=== PATIENT | male | born 1940 | race Caucasian/White ===

== ENCOUNTER 2017-04-07 10:27 | Emergency (ER) | payer MEDICARE, BC ==
[2017-04-07 10:35] VITALS: BP 111/80
[2017-04-07] MEDS ORDERED: Sodium Chloride 0.9% 10 ML Syringe FLUSH PRN (10:51)
[2017-04-07] MEDS ORDERED: methylPREDNISolone Sodium Succinate 125 MG/2 ML SDV IVPUSH ONE (10:51)
--- NOTE | 2017-04-07 10:57 | EDM.PDOC ---
ED HPI GENERAL MEDICAL PROBLEM - General Chief Complaint: General Stated Complaint: [facility] Time Seen by Provider: 04/07/17 10:45 Source of Information: Reports: Patient, EMS History Limitations: Reports: No Limitations - History of Present Illness INITIAL COMMENTS - FREE TEXT/NARRATIVE: The patient presents with joint pain. He has known RA and he is on methotrexate. He is having a flair of his RA. He said this started a few days ago and it has gotten worse. All joints hurt except his shoulders. He denies fevers but he does have chills. He has no chest pain or shortness of breath. He did have some abdominal pain the past few days. He thought he was constipated and took something for it and he did go and he feels better. He has no nausea or vomiting but he has no appetite. Onset: Gradual Duration: Day(s): (3) Location: Reports: Other (Most joints except the shoulders) Quality: Reports: Sharp Severity: Severe Improves with: Reports: Immobilization Worsens with: Reports: Movement Associated Symptoms: Reports: Fever/Chills. Denies: Chest Pain, Cough, Nausea/ Vomiting, Shortness of Breath Generalized Pain Score (Numeric/FACES): 4 - Related Data Allergies Allergy/AdvReac Type Severity Reaction Status Date / Time No Known Allergies Allergy Verified 04/07/17 10:34 Home Meds: Home Meds Albuterol [Proventil HFA] 1 - 2 puff INH Q4H PRN 04/07/17 [History] Ascorbic Acid [Vitamin C] 250 mg PO DAILY 04/07/17 [History] Budesonide/Formoterol Fumarate [Symbicort 80-4.5 Mcg Inhaler] 1 dose INH BID [History] Bumetanide 1 tab PO BEDTIME 04/07/17 [History] Bumetanide 2 tab PO DAILY 04/07/17 [History] Fish Oil/[place]-3 Fatty Acids [Fish Oil 1,000 MG] 1,000 mg PO DAILY 04/07/17 [ History] Folic Acid 1 mg PO DAILY 04/07/17 [History] Lisinopril [Prinivil] 10 mg PO DAILY 04/07/17 [History] Methotrexate 10 mg PO WEEKLY 04/07/17 [History] Metolazone [Zaroxolyn] 205 mg PO DAILY 04/07/17 [History] Multivitamin [Multivitamins] 1 tab PO DAILY 04/07/17 [History] Potassium Chloride [Klor-Con M20] 1 tab PO DAILY 04/07/17 [History] Prednisone [IJD: predniSONE] 40 mg PO WITHBREAKFAST #10 tab 04/07/17 [Rx] Warfarin [Coumadin] 5 mg PO DAILY 04/07/17 [History] Past Medical History Respiratory History: Reports: Asthma Genitourinary History: Reports: Chronic Renal Insuffiency, Other (See Below) Other Genitourinary History: prostate cancer Musculoskeletal History: Reports: RA Oncologic (Cancer) History: Reports: Other (See Below) Other Oncologic History: LGL - Past Surgical History Musculoskeletal Surgical History: Reports: Hip Replacement Social & Family History - Tobacco Use Smoking Status *Q: Never Smoker - Caffeine Use Caffeine Use: Reports: Coffee - Recreational Drug Use Recreational Drug Use: No ED ROS GENERAL - Review of Systems Review Of Systems: See Below Constitutional: Reports: No Symptoms HEENT: Reports: No Symptoms Respiratory: Reports: No Symptoms Cardiovascular: Reports: No Symptoms Endocrine: Reports: No Symptoms GI/Abdominal: Reports: Abdominal Pain, Anorexia. Denies: Nausea, Vomiting : Reports: No Symptoms Musculoskeletal: Reports: Joint Pain ED EXAM, GENERAL - Physical Exam Exam: See Below Exam Limited By: No Limitations General Appearance: Alert, No Apparent Distress Ears: Normal External Exam Nose: Normal Inspection Head: Atraumatic, Normocephalic Neck: Normal Inspection Respiratory/Chest: No Respiratory Distress, Lungs Clear, Normal Breath Sounds Cardiovascular: Regular Rate, Rhythm, No Edema, No Murmur GI/Abdominal: Soft, Non-Tender, No Organomegaly, No Mass Extremities: Other (Pain upon palpation to his hands and other joints.) Course - Vital Signs Last Recorded V/S: Last Vital Signs Temp 98.6 F 04/07/17 10:29 Pulse 72 04/07/17 10:29 Resp 16 04/07/17 10:29 BP 111/80 04/07/17 10:29 Pulse Ox 100 04/07/17 10:29 - Orders/Labs/Meds Orders: Active Orders 24 hr Category Date Time Status Peripheral IV Care [RC] . DIRECTED Care 04/07/17 10:51 Active Abdomen Pelvis wo Cont [CT] Stat Exams 04/07/17 12:03 Taken Sodium Chloride 0.9% [Normal Saline] 1,000 ml Med 04/07/17 11:00 Active IV ASDIRECTED Sodium Chloride 0.9% [Saline Flush] Med 04/07/17 10:51 Active 10 ml FLUSH ASDIRECTED PRN Peripheral IV Insertion Adult [OM.PC] Stat Oth 04/07/17 10:51 Ordered Medication Orders Sodium Chloride (Normal Saline) 1,000 mls @ 125 mls/hr IV ASDIRECTED ROSALINDA Last Admin: 04/07/17 11:02 Dose: 125 mls/hr Sodium Chloride (Saline Flush) 10 ml FLUSH ASDIRECTED PRN PRN Reason: Keep Vein Open Last Admin: 04/07/17 11:04 Dose: 10 ml Labs: Laboratory Tests 04/07/17 04/07/17 04/07/17 Range/Units 11:00 11:00 11:00 WBC 7.71 (4.23-9.07) K/mm3 RBC 3.70 L (4.63-6.08) M/mm3 Hgb 12.7 L (13.7-17.5) gm/L Hct 37.0 L (40.1-51.0) % MCV 100.0 H (79.0-92.2) fl MCH 34.3 H (25.7-32.2) pg MCHC 34.3 (32.2-35.5) g/dl RDW Std Deviation 55.6 H (35.1-43.9) fL Plt Count 191 (163-337) K/mm3 MPV 10.2 (9.4-12.3) fl Neut % (Auto) 82.6 H (34.0-67.9) % Lymph % (Auto) 12.1 L (21.8-53.1) % [place] % (Auto) 5.1 L (5.3-12.2) % Eos % (Auto) 0 L (0.8-7.0) Baso % (Auto) 0.1 (0.1-1.2) % Neut # (Auto) 6.37 H (1.78-5.38) K/mm3 Lymph # (Auto) 0.93 L (1.32-3.57) K/mm3 [place] # (Auto) 0.39 (0.30-0.82) K/mm3 Eos # (Auto) 0.00 L (0.04-0.54) K/mm3 Baso # (Auto) 0.01 (0.01-0.08) K/mm3 PT 11.4 (8.0-13.0) SECONDS INR 1.04 Sodium 138 (136-145) mEq/L Potassium 3.3 L (3.5-5.1) mEq/L Chloride 99 (98-107) mEq/L Carbon Dioxide 22 (21-32) mEq/L Anion Gap 20.3 H (5-15) BUN 54 H (7-18) mg/dL Creatinine 2.7 H (0.7-1.3) mg/dL Est Cr Clr Drug Dosing 20.88 mL/min Estimated GFR (MDRD) 23 (>60) mL/min BUN/Creatinine Ratio 20.0 H (14-18) Glucose 95 (83-115) mg/dL Calcium 9.2 (8.5-10.1) mg/dL Total Bilirubin 1.4 H (0.2-1.0) mg/dL AST 22 (15-37) U/L ALT 30 (16-63) U/L Alkaline Phosphatase 55 (46-116) U/L Total Protein 8.0 (6.4-8.2) g/dl Albumin 3.4 (3.4-5.0) g/dl Globulin 4.6 gm/dL Albumin/Globulin Ratio 0.7 L (1-2) Meds: Medications Generic Name Dose Route Start Last Admin Trade Name Freq PRN Reason Stop Dose Admin Sodium Chloride 1,000 mls @ 125 mls/hr 04/07/17 11:00 04/07/17 11:02 Normal Saline IV 125 mls/hr ASDIRECTED ROSALINDA Administration Sodium Chloride 10 ml 04/07/17 10:51 04/07/17 11:04 Saline Flush FLUSH 10 ml ASDIRECTED PRN Administration Keep Vein Open Discontinued Medications Generic Name Dose Route Start Last Admin Trade Name Freq PRN Reason Stop Dose Admin Hydromorphone HCl 0.5 mg 04/07/17 12:03 04/07/17 12:11 Dilaudid IVPUSH 04/07/17 12:04 0.5 mg ONETIME ONE Administration Methylprednisolone Sodium Succinate 125 mg 04/07/17 10:51 04/07/17 11:03 Solu-Medrol IVPUSH 04/07/17 10:52 125 mg ONETIME ONE Administration - Re-Assessments/Exams Free Text/Narrative Re-Assessment/Exam: 04/07/17 10:59 I ordered an IV NS at 125mL/hr, labs and solu-medrol 125mg IV. 04/07/17 12:17 His CBC looks good. His K was a little low at 3.3. His BUN was elevated at 54. His creatinine was elevated to 2.7. That has never been this high. His doctor has been checking labs and his creatinine was elevated to 2.1 on February but back in November his creatinine was 1.6. He is a little better after the solu- medrol but not good enough to walk yet. I will give him dilaudid 0.5mg IV and he has more flank pain now I will get a CT of his abdomen and pelvis to look for a kidney stone. 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 The left ureter extends into the origin/ proximal portion of the inguinal canal. No hydroureteronephrosis. 9 X 5 mm nonobstructing right lower pole renal calculus. Right renal cortical lesions, recommend US correlation. Bilateral punctate renal parenchymal calcifications. Multiple subcentimeter calcified gallstones. No biliary dilatation. Colonic diverticulosis without diverticulitis. Splenomegaly with multiple indeterminate 1cm and smaller hypodense lesions. Consider triple phase abdominal CT or US correlation for further evaluation. I had my nurse get the patient up to walk and he did good he is feeling better. I will get him on some prednisone and have him follow up with his doctor for an US of his kidneys and spleen and recheck his creatinine. Departure - Departure Time of Disposition: 14:40 Disposition: Home, Self-Care 01 Condition: Good Clinical Impression: Renal insufficiency, Rheumatoid arthritis flare, Lesion of right [place] kidney Joint pain Qualifiers: Joint pain location: hand Laterality: bilateral Qualified Code(s): M25.541 - Pain in joints of right hand; M25.542 - Pain in joints of left hand - Discharge Information Prescriptions: Prednisone [IJD: predniSONE] 40 mg PO WITHBREAKFAST #10 tab Referrals: Jose Luis Bennett Jr, MD [Primary Care Provider] - 1 Week Forms: ED Department Discharge Additional Instructions: Take the prednisone daily for 5 days. Drink plenty of water. Keep taking your medications as prescribed. Follow up with your doctor to have your kidney function checked. Follow up with your doctor for lesions on your kidney. You will need an ultrasound done. Please return if you are worse. - My Orders Last 24 Hours: My Active Orders 04/07/17 10:51 Peripheral IV Care [RC] . DIRECTED Sodium Chloride 0.9% [Saline Flush] 10 ml FLUSH ASDIRECTED PRN Peripheral IV Insertion Adult [OM.PC] Stat 04/07/17 11:00 Sodium Chloride 0.9% [Normal Saline] 1,000 ml IV ASDIRECTED 04/07/17 12:03 Abdomen Pelvis wo Cont [CT] Stat - Assessment/Plan Last 24 Hours: My Active Orders 04/07/17 10:51 Peripheral IV Care [RC] . DIRECTED Sodium Chloride 0.9% [Saline Flush] 10 ml FLUSH ASDIRECTED PRN Peripheral IV Insertion Adult [OM.PC] Stat 04/07/17 11:00 Sodium Chloride 0.9% [Normal Saline] 1,000 ml IV ASDIRECTED 04/07/17 12:03 Abdomen Pelvis wo Cont [CT] Stat
[2017-04-07] MEDS ORDERED: Sodium Chloride 0.9% 1,000 ML IV SCH (11:00)
[2017-04-07] MEDS ORDERED: HYDROmorphone 0.5 MG/0.5 ML Syringe IVPUSH ONE (12:03)
--- NOTE | 2017-04-08 08:31 | CT ---
CT abdomen and pelvis Technique: Multiple axial sections were obtained from above the dome of the diaphragm inferiorly through the pubic symphysis. Intravenous and oral contrast has not been given. Study has been performed as a ureteral stone protocol. Findings: Nonobstructing calculus is noted within the lower right kidney measuring approximately 1 cm in size. Small cortical lesions are seen within both kidneys most likely representing minimal cysts. Cortical calcifications are seen within the right kidney. No ureteral dilatation is seen. No ureteral stone is identified. Left kidney is partially pelvic in location. Visualized lung bases show nothing acute. Heart is enlarged. Noncontrast appearance of the liver shows no focal abnormality. Length of the spleen is mildly increased at 15.4 cm. Pancreas is normal. Multiple small calcified gallstones are seen within the gallbladder. Aorta shows ectasia and atherosclerotic change without aneurysmal dilatation. Atherosclerotic change continues into the iliac vessels. No pelvic mass or adenopathy is seen. Radiation implant seeds are noted within the prostate gland. Fatty containing left inguinal hernia is noted. Appendix is seen which is normal. No bowel dilatation is seen. No acute inflammatory change or free fluid is seen. Bone window settings were reviewed which show a right hip prosthesis. Scattered degenerative change is seen throughout the spine. Incidental sigmoid diverticuli are seen. Impression: 1. No ureteral dilatation or ureteral stone is seen. 2. Slightly ectatic position of the left kidney appearing partially pelvic in location as a normal variant. Small cortical cysts are felt to be present within both kidneys. Small cortical calcifications within the right kidney as well as a nonobstructing 1 cm stone seen within the right kidney. 3. Multiple small calcified gallstones. 4. Mild splenomegaly which is nonspecific. 5. Other incidental findings as noted above. Diagnostic code #2 Agree with preliminary report issued by [employer] ([employer] preliminary report dictated on 04/07/2017 2:47 PM Central Time)
== END 2017-04-07 14:57 | disposition home or self-care (01) ==
LOC: JD.ED 10:27
DX: M25.541 Pain in joints of right hand (principal); M06.9 Rheumatoid arthritis, unspecified; J45.909 Unspecified asthma, uncomplicated; N18.9 Chronic kidney disease, unspecified; N28.9 Disorder of kidney and ureter, unspecified; Z96.649 Presence of unspecified artificial hip joint; Z79.899 Other long term (current) drug therapy
CPT/HCPCS: 36415; 74176; 80053; 85025; 85610; 96361; 96374; 96375; 99285; J1170; J2930; J7040; J7050; 99284

== ENCOUNTER 2017-10-08 13:29 | Emergency (ER) | payer MEDICARE, BC ==
[2017-10-08 13:40] VITALS: BP 149/83
[2017-10-08] MEDS ORDERED: Sodium Chloride 0.9% 10 ML Syringe FLUSH PRN (14:12)
--- NOTE | 2017-10-08 14:18 | EDM.PDOC ---
ED HPI GENERAL MEDICAL PROBLEM - General Chief Complaint: Upper Extremity Injury/Pain Stated Complaint: RIGHT ARM SWELLING Time Seen by Provider: 10/08/17 14:00 Source of Information: Reports: Patient History Limitations: Reports: No Limitations - History of Present Illness INITIAL COMMENTS - FREE TEXT/NARRATIVE: Patient is a 77-year-old male who presents ED complaining of right elbow pain and swelling to his right lower arm. Patient states the elbow tenderness and swelling started approximately 2 weeks ago. Over the past 2 view days the arm has grown more swollen. He did contact his PCP with instructions to come to the ED to rule out DVT. Patient states the pain is minimal. He has a history of rheumatoid arthritis and is on methotrexate. Patient does not recall any specific activity or trauma that precipitated the pain and swelling. There is no open wounds to his arm. He has no history of MRSA. In addition he has a history of A. fib and is on Coumadin. Patient does not recall his last INR. Patient is a history of hypertension, LGL, RH, heart failure, kidney disease, and prostate cancer. He is currently on Coreg, symbicort, albuterol, midline, Zaroxolyn, methotrexate , lisinopril, Coumadin, and potassium. Right Arm Pain Score (Numeric/FACES): 2 - Related Data Allergies Allergy/AdvReac Type Severity Reaction Status Date / Time No Known Allergies Allergy Verified 10/08/17 13:37 Home Meds: Home Meds Albuterol [Proventil HFA] 1 - 2 puff INH Q4H PRN 04/07/17 [History] Ascorbic Acid [Vitamin C] 250 mg PO DAILY 04/07/17 [History] Budesonide/Formoterol Fumarate [Symbicort 80-4.5 Mcg Inhaler] 1 dose INH BID [History] Bumetanide 1 tab PO BEDTIME 04/07/17 [History] Bumetanide 2 tab PO DAILY 04/07/17 [History] Fish Oil/[place]-3 Fatty Acids [Fish Oil 1,000 MG] 1,000 mg PO DAILY 04/07/17 [ History] Folic Acid 1 mg PO DAILY 04/07/17 [History] Lisinopril [Prinivil] 10 mg PO DAILY 04/07/17 [History] Methotrexate 10 mg PO WEEKLY 04/07/17 [History] Metolazone [Zaroxolyn] 2.5 mg PO DAILY 04/07/17 [History] Multivitamin [Multivitamins] 1 tab PO DAILY 04/07/17 [History] Potassium Chloride [Klor-Con M20] 1 tab PO DAILY 04/07/17 [History] Warfarin [Coumadin] 5 mg PO DAILY 04/07/17 [History] Carvedilol [Coreg] 3.125 mg PO BID 10/08/17 [History] Clindamycin HCl [Cleocin] 450 mg PO Q8H #90 cap 10/08/17 [Rx] Past Medical History Cardiovascular History: Reports: Afib, Hypertension Respiratory History: Reports: Asthma, Sleep Apnea, Other (See Below) Other Respiratory History: wears CPAP Genitourinary History: Reports: Chronic Renal Insuffiency, Other (See Below) Other Genitourinary History: prostate cancer Musculoskeletal History: Reports: RA Oncologic (Cancer) History: Reports: Other (See Below) Other Oncologic History: LGL - Past Surgical History Musculoskeletal Surgical History: Reports: Hip Replacement Social & Family History - Tobacco Use Smoking Status *Q: Former Smoker Used Tobacco, but Quit: No - Caffeine Use Caffeine Use: Reports: Coffee - Recreational Drug Use Recreational Drug Use: No Review of Systems - Review of Systems Review Of Systems: See Below Respiratory: Reports: No Symptoms Cardiovascular: Reports: No Symptoms Musculoskeletal: Reports: Joint Pain (Right elbow pain), Other (right arm swelling from the elbow down. ) Skin: Reports: Erythema (mild redness to the right elbow with swelling. ) Neurological: Denies: Numbness, Tingling ED EXAM, GENERAL - Physical Exam Exam: See Below Exam Limited By: No Limitations General Appearance: Alert, WD/WN, No Apparent Distress Ears: Hearing Grossly Normal Nose: Normal Inspection Throat/Mouth: Normal Voice, No Airway Compromise Neck: Normal Inspection, Supple Respiratory/Chest: No Respiratory Distress, Lungs Clear, Normal Breath Sounds, No Accessory Muscle Use Cardiovascular: Normal Peripheral Pulses, Regular Rate, Rhythm, Systolic Murmur (3/6) Peripheral Pulses: 3+: Radial (L), Radial (R) Extremities: Other (Right elbow swollen mildly red with increased warmth with palpation. ) Neurological: Alert, Oriented, CN II-XII Intact, Normal Cognition, No Motor/ Sensory Deficits Psychiatric: Normal Affect, Normal Mood Skin Exam: Warm, Dry, Intact, Normal Color Course - Vital Signs Last Recorded V/S: Last Vital Signs Temp 97.8 F 10/08/17 13:37 Pulse 84 10/08/17 13:37 Resp 18 10/08/17 13:37 BP 149/83 H 10/08/17 13:37 Pulse Ox 99 10/08/17 13:37 - Orders/Labs/Meds Orders: Active Orders 24 hr Category Date Time Status EKG Documentation Completion [RC] STAT Care 10/08/17 14:12 Active Peripheral IV Care [RC] . DIRECTED Care 10/08/17 14:13 Active Clindamycin Phosphate [Cleocin] 900 mg Med 10/08/17 16:56 Active Sodium Chloride 0.9% [Normal Saline] 100 ml IV ONETIME Sodium Chloride 0.9% [Saline Flush] Med 10/08/17 14:12 Active 10 ml FLUSH ASDIRECTED PRN Peripheral IV Insertion Adult [OM.PC] Stat Oth 10/08/17 14:12 Ordered Medication Orders Clindamycin Phosphate 900 mg/ (Sodium Chloride) 106 mls @ 100 mls/hr IV ONETIME ONE Stop: 10/08/17 17:59 Last Admin: 10/08/17 17:04 Dose: 100 mls/hr Sodium Chloride (Saline Flush) 10 ml FLUSH ASDIRECTED PRN PRN Reason: Keep Vein Open Last Admin: 10/08/17 14:29 Dose: 10 ml Labs: Laboratory Tests 10/08/17 10/08/17 10/08/17 Range/Units 14:29 14:29 14:29 WBC 4.87 (4.23-9.07) K/mm3 RBC 3.87 L (4.63-6.08) M/mm3 Hgb 12.4 L (13.7-17.5) gm/L Hct 37.6 L (40.1-51.0) % MCV 97.2 H (79.0-92.2) fl MCH 32.0 (25.7-32.2) pg MCHC 33.0 (32.2-35.5) g/dl RDW Std Deviation 48.8 H (35.1-43.9) fL Plt Count 171 (163-337) K/mm3 MPV 10.4 (9.4-12.3) fl Neut % (Auto) 68.0 H (34.0-67.9) % Lymph % (Auto) 19.9 L (21.8-53.1) % [place] % (Auto) 9.4 (5.3-12.2) % Eos % (Auto) 2.3 (0.8-7.0) Baso % (Auto) 0.4 (0.1-1.2) % Neut # (Auto) 3.31 (1.78-5.38) K/mm3 Lymph # (Auto) 0.97 L (1.32-3.57) K/mm3 [place] # (Auto) 0.46 (0.30-0.82) K/mm3 Eos # (Auto) 0.11 (0.04-0.54) K/mm3 Baso # (Auto) 0.02 (0.01-0.08) K/mm3 ESR (0-15) mm/hr PT 29.4 H (8.0-13.0) SECONDS INR 2.72 Sodium 141 (136-145) mEq/L Potassium 3.2 L (3.5-5.1) mEq/L Chloride 104 (98-107) mEq/L Carbon Dioxide 20 L (21-32) mEq/L Anion Gap 20.2 H (5-15) BUN 42 H (7-18) mg/dL Creatinine 1.9 H (0.7-1.3) mg/dL Est Cr Clr Drug Dosing 29.22 mL/min Estimated GFR (MDRD) 35 (>60) mL/min BUN/Creatinine Ratio 22.1 H (14-18) Glucose 121 H (83-115) mg/dL Calcium 8.8 (8.5-10.1) mg/dL Total Bilirubin 0.4 (0.2-1.0) mg/dL AST 17 (15-37) U/L ALT 26 (16-63) U/L Alkaline Phosphatase 63 (46-116) U/L C-Reactive Protein 6.3 H* (<1.0) mg/dL Total Protein 7.8 (6.4-8.2) g/dl Albumin 3.2 L (3.4-5.0) g/dl Globulin 4.6 gm/dL Albumin/Globulin Ratio 0.7 L (1-2) 10/08/17 Range/Units 14:29 WBC (4.23-9.07) K/mm3 RBC (4.63-6.08) M/mm3 Hgb (13.7-17.5) gm/L Hct (40.1-51.0) % MCV (79.0-92.2) fl MCH (25.7-32.2) pg MCHC (32.2-35.5) g/dl RDW Std Deviation (35.1-43.9) fL Plt Count (163-337) K/mm3 MPV (9.4-12.3) fl Neut % (Auto) (34.0-67.9) % Lymph % (Auto) (21.8-53.1) % [place] % (Auto) (5.3-12.2) % Eos % (Auto) (0.8-7.0) Baso % (Auto) (0.1-1.2) % Neut # (Auto) (1.78-5.38) K/mm3 Lymph # (Auto) (1.32-3.57) K/mm3 [place] # (Auto) (0.30-0.82) K/mm3 Eos # (Auto) (0.04-0.54) K/mm3 Baso # (Auto) (0.01-0.08) K/mm3 ESR 88 H (0-15) mm/hr PT (8.0-13.0) SECONDS INR Sodium (136-145) mEq/L Potassium (3.5-5.1) mEq/L Chloride (98-107) mEq/L Carbon Dioxide (21-32) mEq/L Anion Gap (5-15) BUN (7-18) mg/dL Creatinine (0.7-1.3) mg/dL Est Cr Clr Drug Dosing mL/min Estimated GFR (MDRD) (>60) mL/min BUN/Creatinine Ratio (14-18) Glucose (83-115) mg/dL Calcium (8.5-10.1) mg/dL Total Bilirubin (0.2-1.0) mg/dL AST (15-37) U/L ALT (16-63) U/L Alkaline Phosphatase (46-116) U/L C-Reactive Protein (<1.0) mg/dL Total Protein (6.4-8.2) g/dl Albumin (3.4-5.0) g/dl Globulin gm/dL Albumin/Globulin Ratio (1-2) Meds: Medications Generic Name Dose Route Start Last Admin Trade Name [place] PRN Reason Stop Dose Admin Clindamycin Phosphate 900 mg/ 106 mls @ 100 mls/hr 10/08/17 16:56 10/08/17 17 :04 Sodium Chloride IV 10/08/17 17:59 100 mls/hr ONETIME ONE Administration Sodium Chloride 10 ml 10/08/17 14:12 10/08/17 14:29 Saline Flush FLUSH 10 ml ASDIRECTED PRN Administration Keep Vein Open - Re-Assessments/Exams Free Text/Narrative Re-Assessment/Exam: IV established with initial blood work and studies BMP: CBC, chem 14, PTT/INR, CRP, ESR, EKG, and also vl duplex upper extremity right. EKG interpretation with a right bundle branch Block. No acute ST changes noted. 10/08/17 16:36 Labs reviewed: White blood cell count 4.87, hemoglobin 12.4, neutrophil percent is 68.0, INR is 2.72, potassium 3.2, creatinine 1.9, AG 20.2 , albumin 42, glucose 121, CRP 6.3, and ESR 88. Patient has rheumatoid arthritis thus contributing to elevated ESR and CRP. In addition he is on zaroxolyn and takes potassium chloride supplements. Patient CR is baseline. Results of ultrasound are pending. 10/08/17 16:52 Ultrasound right upper extremity impression: No evidence of venous thrombosis within the right upper extremity or within the left internal jugular vein. Mild subcutaneous edema within the right forearm. Patient has cellulitis to the right upper extremity. Ordered clindamycin 900mg IV. No drug interactions noted. Antibiotic completed. Discharge instructions as documented. Departure - Departure Time of Disposition: 17:41 Disposition: Home, Self-Care 01 Condition: Good Clinical Impression: Cellulitis of right upper extremity, Hypokalemia - Discharge Information Prescriptions: Clindamycin HCl [Cleocin] 450 mg PO Q8H #90 cap Instructions: Cellulitis, Adult, Cellulitis, Adult, [id number] Referrals: Jose Luis Bennett Jr, MD [Primary Care Provider] - Forms: ED Department Discharge Additional Instructions: As discussed yet cellulitis to the right arm. Treatment will be 450 mg three times a day for 10 days. Followup with PCP this coming week for reevaluation. Continue taking all your home medications as prescribed. Return to the E.D. if you develop any new or worsening symptoms. INR is 2.72. INR may increase with taking the clindamycin. Follow up with PCP to have INR rechecked this next week as well. - My Orders Last 24 Hours: My Active Orders 10/08/17 14:12 EKG Documentation Completion [RC] STAT Sodium Chloride 0.9% [Saline Flush] 10 ml FLUSH ASDIRECTED PRN Peripheral IV Insertion Adult [OM.PC] Stat 10/08/17 14:13 Peripheral IV Care [RC] . DIRECTED 10/08/17 16:56 Clindamycin Phosphate [Cleocin] 900 mg Sodium Chloride 0.9% [Normal Saline] 100 ml IV ONETIME - Assessment/Plan Last 24 Hours: My Active Orders 10/08/17 14:12 EKG Documentation Completion [RC] STAT Sodium Chloride 0.9% [Saline Flush] 10 ml FLUSH ASDIRECTED PRN Peripheral IV Insertion Adult [OM.PC] Stat 10/08/17 14:13 Peripheral IV Care [RC] . DIRECTED 10/08/17 16:56 Clindamycin Phosphate [Cleocin] 900 mg Sodium Chloride 0.9% [Normal Saline] 100 ml IV ONETIME
--- NOTE | 2017-10-08 16:22 | US ---
Right upper extremity venous ultrasound: Duplex and color flow imaging was obtained of the right internal jugular, subclavian, axillary, brachial, cephalic, basilic, radial and ulnar veins. Left internal jugular vein also evaluated. Findings: Mild subcutaneous edema is seen within the right forearm. Normal compression, augmentation and phasic flow is seen within the veins. Impression: 1. No evidence of venous thrombosis within the right upper extremity or within the left internal jugular vein. 2. Mild subcutaneous edema within the right forearm. Diagnostic code #2
[2017-10-08] MEDS ORDERED: Clindamycin Phosphate 900 MG in Sodium Chloride 0.9% 100 ML IV ONE (16:56)
== END 2017-10-08 18:10 | disposition home or self-care (01) ==
LOC: JD.ED 13:29
DX: L03.113 Cellulitis of right upper limb (principal); E87.6 Hypokalemia; I48.91 Unspecified atrial fibrillation; N18.9 Chronic kidney disease, unspecified; I12.9 Hypertensive chronic kidney disease with stage 1 through stage 4 chronic kidney disease, or unspecified chronic kidney disease; Z87.891 Personal history of nicotine dependence; Z79.899 Other long term (current) drug therapy; Z79.01 Long term (current) use of anticoagulants
CPT/HCPCS: 36415; 80053; 85025; 85610; 85652; 86140; 93005; 93931; 96365; 99284; J7030; J7050

== ENCOUNTER 2018-03-05 14:02 | Emergency (ER) | payer MEDICARE, BC ==
[2018-03-05] MEDS ORDERED: Sodium Chloride 0.9% 250 ML IV ONE (14:37)
[2018-03-05] MEDS: Sodium Chloride 0.9% 10 ML Syringe FLUSH PRN ×2 (14:39→14:43)
--- NOTE | 2018-03-05 15:46 | EDM.PDOC ---
ED HPI GENERAL MEDICAL PROBLEM - General Chief Complaint: Cardiovascular Problem Stated Complaint: LOW BLOOD PRESSURE Time Seen by Provider: 03/05/18 14:35 Source of Information: Reports: Patient History Limitations: Reports: No Limitations - History of Present Illness INITIAL COMMENTS - FREE TEXT/NARRATIVE: 77-year-old male present for evaluation and treatment of lightheadedness and hypotension. Patient reports he's been feeling lightheaded for the last 36 hours. Patient reports that he took his blood pressure at home, on a wrist sphygmomanometer, and his pressure reading was 80/52. At this time he is denying any chest pain, shortness breath, abdominal pain, fevers, cough, syncope , diarrhea or any bloody stools. Lightheadedness is worse with laying down. He denies any recent trauma such as motor vehicle accident or falls. Reports he had a colonoscopy several years ago and nothing abnormal was identified. Primary care provider is Dr. Bennett. Patient has a history of atrial fibrillation for which he is on Coumadin for. Duration: Hour(s): (36) Generalized Pain Score (Numeric/FACES): 3 - Related Data Allergies Allergy/AdvReac Type Severity Reaction Status Date / Time No Known Allergies Allergy Verified 03/05/18 14:12 Home Meds: Home Meds Ascorbic Acid [Vitamin C] 250 mg PO DAILY 04/07/17 [History] Bumetanide 1 tab PO ACDINNER 04/07/17 [History] Bumetanide 2 tab PO ACBREAKFAST 04/07/17 [History] Fish Oil/[place]-3 Fatty Acids [Fish Oil 1,000 MG] 1,000 mg PO DAILY 04/07/17 [ History] Folic Acid 1 mg PO DAILY 04/07/17 [History] Lisinopril [Prinivil] 10 mg PO DAILY 04/07/17 [History] Methotrexate 10 mg PO WEEKLY 04/07/17 [History] Metolazone [Zaroxolyn] 2.5 mg PO DAILY 04/07/17 [History] Multivitamin [Multivitamins] 1 tab PO DAILY 04/07/17 [History] Potassium Chloride [Klor-Con M20] 1 tab PO ASDIRECTED 04/07/17 [History] Warfarin [Coumadin] 5 mg PO DAILY 04/07/17 [History] Carvedilol [Coreg] 3.125 mg PO BID 10/08/17 [History] Cpap 1 dose IN ASDIRECTED 03/05/18 [History] Past Medical History HEENT History: Reports: Impaired Vision Cardiovascular History: Reports: Afib, Hypertension Respiratory History: Reports: Asthma, Sleep Apnea, Other (See Below) Other Respiratory History: wears CPAP Genitourinary History: Reports: Chronic Renal Insuffiency, Other (See Below) Other Genitourinary History: prostate cancer Musculoskeletal History: Reports: RA Endocrine/Metabolic History: Reports: Obesity/BMI 30+ Oncologic (Cancer) History: Reports: Prostate, Other (See Below) Other Oncologic History: LGL - Past Surgical History GI Surgical History: Reports: Hernia Repair/Other Musculoskeletal Surgical History: Reports: Hip Replacement Social & Family History - Family History Family Medical History: Noncontributory - Tobacco Use Smoking Status *Q: Former Smoker Used Tobacco, but Quit: Yes Month/Year Tobacco Last Used: 1983 - Caffeine Use Caffeine Use: Reports: Coffee Other Caffeine Use: Daily - Recreational Drug Use Recreational Drug Use: No ED ROS GENERAL - Review of Systems Review Of Systems: See Below Respiratory: Denies: Shortness of Breath Cardiovascular: Reports: Lightheadedness. Denies: Chest Pain, Syncope GI/Abdominal: Denies: Abdominal Pain, Bloody Stool, Diarrhea Neurological: Reports: Dizziness ED EXAM, GENERAL - Physical Exam Exam: See Below Exam Limited By: No Limitations General Appearance: Alert, WD/WN, No Apparent Distress Throat/Mouth: Normal Inspection, Normal Voice, No Airway Compromise Respiratory/Chest: No Respiratory Distress, Lungs Clear, Normal Breath Sounds Cardiovascular: Normal Peripheral Pulses, No Murmur, Irregularly Irregular GI/Abdominal: Soft, Non-Tender Rectal (Males) Exam: Normal Exam, Heme - Stool Neurological: Alert, Oriented, Normal Cognition Psychiatric: Normal Affect, Normal Mood Skin Exam: Warm, Dry, Normal Color EKG INTERPRETATION EKG Date: 03/05/18 Time: 15:40 Rhythm: A-Fib Rate (Beats/Min): 54 [place]: LAD-Left [place] Deviation P-Wave: Present QRS: RBBB (and LAFB) ST-T: Normal QT: Normal EKG Interpretation Comments: A.fib with a bradycardia ventricular response. Single PVC. No ischemic changes. + LAD. No LVH. RBBB and LAFB. Reviewed by myself and Dr. Darden. Course - Vital Signs Last Recorded V/S: Last Vital Signs Temp 97.6 F 03/05/18 14:08 Pulse 54 L 03/05/18 17:00 Resp 18 03/05/18 17:00 BP 112/83 03/05/18 17:00 Pulse Ox 99 03/05/18 17:00 Orthostatic Blood Pressure [ 129/94 Standing] Orthostatic Blood Pressure [ 110/71 Supine] - Orders/Labs/Meds Labs: Laboratory Tests 03/05/18 03/05/18 03/05/18 Range/Units 14:37 14:37 16:00 WBC 5.19 (4.23-9.07) K/mm3 RBC 3.65 L (4.63-6.08) M/mm3 Hgb 12.0 L (13.7-17.5) gm/L Hct 35.9 L (40.1-51.0) % MCV 98.4 H (79.0-92.2) fl MCH 32.9 H (25.7-32.2) pg MCHC 33.4 (32.2-35.5) g/dl RDW Std Deviation 48.4 H (35.1-43.9) fL Plt Count 148 L (163-337) K/mm3 MPV 10.2 (9.4-12.3) fl Neut % (Auto) 69.6 H (34.0-67.9) % Lymph % (Auto) 17.9 L (21.8-53.1) % [place] % (Auto) 10.0 (5.3-12.2) % Eos % (Auto) 2.1 (0.8-7.0) Baso % (Auto) 0.4 (0.1-1.2) % Neut # (Auto) 3.61 (1.78-5.38) K/mm3 Lymph # (Auto) 0.93 L (1.32-3.57) K/mm3 [place] # (Auto) 0.52 (0.30-0.82) K/mm3 Eos # (Auto) 0.11 (0.04-0.54) K/mm3 Baso # (Auto) 0.02 (0.01-0.08) K/mm3 Sodium 138 (136-145) mEq/L Potassium 3.6 (3.5-5.1) mEq/L Chloride 100 (98-107) mEq/L Carbon Dioxide 26 (21-32) mEq/L Anion Gap 15.6 H (5-15) BUN 51 H (7-18) mg/dL Creatinine 2.1 H (0.7-1.3) mg/dL Est Cr Clr Drug Dosing 26.44 mL/min Estimated GFR (MDRD) 31 (>60) mL/min BUN/Creatinine Ratio 24.3 H (14-18) Glucose 138 H (83-115) mg/dL Calcium 8.5 (8.5-10.1) mg/dL Total Bilirubin 0.6 (0.2-1.0) mg/dL AST 25 (15-37) U/L ALT 30 (16-63) U/L Alkaline Phosphatase 59 (46-116) U/L Total Protein 7.5 (6.4-8.2) g/dl Albumin 3.1 L (3.4-5.0) g/dl Globulin 4.4 gm/dL Albumin/Globulin Ratio 0.7 L (1-2) Urine Color Light yellow (Yellow) Urine Appearance Clear (Clear) Urine pH 6.0 (5.0-8.0) Ur Specific [place] 1.015 (1.005-1.030) Urine Protein Negative (Negative) Urine Glucose (UA) Negative (Negative) Urine Ketones Negative (Negative) Urine Occult Blood Negative (Negative) Urine Nitrite Negative (Negative) Urine Bilirubin Negative (Negative) Urine Urobilinogen 0.2 (0.2-1.0) Ur Leukocyte Esterase Negative (Negative) Urine RBC Not seen (0-5) /hpf Urine WBC Not seen (0-5) /hpf Ur Epithelial Cells 0-5 (0-5) /hpf Urine Bacteria Not seen (FEW) /hpf Urine Mucus Not seen (FEW) /hpf Meds: Medications Discontinued Medications Generic Name Dose Route Start Last Admin Trade Name Freq PRN Reason Stop Dose Admin Sodium Chloride 250 mls @ 999 mls/hr 03/05/18 14:37 03/05/18 14:43 Normal Saline IV 03/05/18 14:52 999 mls/hr ONETIME ONE Administration Sodium Chloride 10 ml 03/05/18 14:32 03/05/18 14:43 Saline Flush FLUSH 10 ml ASDIRECTED PRN Administration Keep Vein Open - Re-Assessments/Exams Free Text/Narrative Re-Assessment/Exam: 03/05/18 16:30 Patient on quality assurance monitor body. He did jerel down to 48 bpm while sleeping. Pressures have been good in the ED. Systolic has been 100-120. Attempted to contact Dr. Bennett, no longer available at this time. Case discussed with Dr. Darden. Recommended decreasing coreg dose to qday from bid. Recommended follow-up with PCP early next week. Patient may require a pacemaker. Discussed with the patient. He is already taking the coreg qday. Will have him continue at this dose, or if able 1/2 the dose. Encouraged close follow-up. Encouraged fluids. His bradycardia is likely what is making him feel so lightheaded. Patient states he has been told before he may require a pacemaker. Discharge instructions as documented. Departure - Departure Time of Disposition: 16:32 Disposition: Home, Self-Care 01 Condition: Fair Clinical Impression: Bradycardia, Hypotension Instructions: Hypotension, [id number], Bradycardia, Adult Referrals: Jose Luis Bennett Jr, MD [Primary Care Provider] - Forms: ED Department Discharge Additional Instructions: Rest. Make sure you are drinking plenty of fluids. Follow-up with your PCP next week. You may require a pacemaker for management of your bradycardia. Recommend discontinuing your pm dose of carvedilol (coreg). Recommend taking once a day until seen by Dr. Bennett. Please return to the ER if your symptoms change or worsen. ED HPI GENERAL MEDICAL PROBLEM - General Chief Complaint: Cardiovascular Problem Stated Complaint: LOW BLOOD PRESSURE Time Seen by Provider: 03/05/18 14:35 Source of Information: Reports: Patient History Limitations: Reports: No Limitations Generalized Pain Score (Numeric/FACES): 3 - Related Data Allergies Allergy/AdvReac Type Severity Reaction Status Date / Time No Known Allergies Allergy Verified 03/05/18 14:12 Home Meds: Home Meds Ascorbic Acid [Vitamin C] 250 mg PO DAILY 04/07/17 [History] Bumetanide 1 tab PO ACDINNER 04/07/17 [History] Bumetanide 2 tab PO ACBREAKFAST 04/07/17 [History] Fish Oil/[place]-3 Fatty Acids [Fish Oil 1,000 MG] 1,000 mg PO DAILY 04/07/17 [ History] Folic Acid 1 mg PO DAILY 04/07/17 [History] Lisinopril [Prinivil] 10 mg PO DAILY 04/07/17 [History] Methotrexate 10 mg PO WEEKLY 04/07/17 [History] Metolazone [Zaroxolyn] 2.5 mg PO DAILY 04/07/17 [History] Multivitamin [Multivitamins] 1 tab PO DAILY 04/07/17 [History] Potassium Chloride [Klor-Con M20] 1 tab PO ASDIRECTED 04/07/17 [History] Warfarin [Coumadin] 5 mg PO DAILY 04/07/17 [History] Carvedilol [Coreg] 3.125 mg PO BID 10/08/17 [History] Cpap 1 dose IN ASDIRECTED 03/05/18 [History] Past Medical History HEENT History: Reports: Impaired Vision Cardiovascular History: Reports: Afib, Hypertension Respiratory History: Reports: Asthma, Sleep Apnea, Other (See Below) Other Respiratory History: wears CPAP Genitourinary History: Reports: Chronic Renal Insuffiency, Other (See Below) Other Genitourinary History: prostate cancer Musculoskeletal History: Reports: RA Endocrine/Metabolic History: Reports: Obesity/BMI 30+ Oncologic (Cancer) History: Reports: Prostate, Other (See Below) Other Oncologic History: LGL - Past Surgical History GI Surgical History: Reports: Hernia Repair/Other Musculoskeletal Surgical History: Reports: Hip Replacement Social & Family History - Family History Family Medical History: Noncontributory - Tobacco Use Smoking Status *Q: Former Smoker Used Tobacco, but Quit: Yes Month/Year Tobacco Last Used: 1983 - Caffeine Use Caffeine Use: Reports: Coffee Other Caffeine Use: Daily - Recreational Drug Use Recreational Drug Use: No Course - Vital Signs Last Recorded V/S: Last Vital Signs Temp 97.6 F 03/05/18 14:08 Pulse 64 03/05/18 14:08 Resp 14 03/05/18 14:08 BP 117/86 03/05/18 14:08 Pulse Ox 98 03/05/18 14:08 Orthostatic Blood Pressure [ 129/94 Standing] Orthostatic Blood Pressure [ 110/71 Supine] - Orders/Labs/Meds Orders: Active Orders 24 hr Category Date Time Status EKG 12 Lead [EKG Documentation Completion] [] STAT Care 03/05/18 15:19 Active Hemoccult [Fecal Occult Blood Collection] [] Care 03/05/18 15:38 Active ASDIRECTED Orthostatic Vital Signs [RC] ASDIRECTED Care 03/05/18 14:32 Active Peripheral IV Care [RC] . DIRECTED Care 03/05/18 14:33 Active UA W/MICROSCOPIC [URIN] Stat Lab 03/05/18 16:00 Ordered Sodium Chloride 0.9% [Saline Flush] Med 03/05/18 14:32 Active 10 ml FLUSH ASDIRECTED PRN Peripheral IV Insertion Adult [OM.PC] Routine Oth 03/05/18 14:32 Ordered Medication Orders Sodium Chloride (Saline Flush) 10 ml FLUSH ASDIRECTED PRN PRN Reason: Keep Vein Open Last Admin: 03/05/18 14:43 Dose: 10 ml Admin: 03/05/18 14:39 Dose: 10 ml Labs: Laboratory Tests 03/05/18 03/05/18 03/05/18 Range/Units 14:37 14:37 16:00 WBC 5.19 (4.23-9.07) K/mm3 RBC 3.65 L (4.63-6.08) M/mm3 Hgb 12.0 L (13.7-17.5) gm/L Hct 35.9 L (40.1-51.0) % MCV 98.4 H (79.0-92.2) fl MCH 32.9 H (25.7-32.2) pg MCHC 33.4 (32.2-35.5) g/dl RDW Std Deviation 48.4 H (35.1-43.9) fL Plt Count 148 L (163-337) K/mm3 MPV 10.2 (9.4-12.3) fl Neut % (Auto) 69.6 H (34.0-67.9) % Lymph % (Auto) 17.9 L (21.8-53.1) % [place] % (Auto) 10.0 (5.3-12.2) % Eos % (Auto) 2.1 (0.8-7.0) Baso % (Auto) 0.4 (0.1-1.2) % Neut # (Auto) 3.61 (1.78-5.38) K/mm3 Lymph # (Auto) 0.93 L (1.32-3.57) K/mm3 [place] # (Auto) 0.52 (0.30-0.82) K/mm3 Eos # (Auto) 0.11 (0.04-0.54) K/mm3 Baso # (Auto) 0.02 (0.01-0.08) K/mm3 Sodium 138 (136-145) mEq/L Potassium 3.6 (3.5-5.1) mEq/L Chloride 100 (98-107) mEq/L Carbon Dioxide 26 (21-32) mEq/L Anion Gap 15.6 H (5-15) BUN 51 H (7-18) mg/dL Creatinine 2.1 H (0.7-1.3) mg/dL Est Cr Clr Drug Dosing 26.44 mL/min Estimated GFR (MDRD) 31 (>60) mL/min BUN/Creatinine Ratio 24.3 H (14-18) Glucose 138 H (83-115) mg/dL Calcium 8.5 (8.5-10.1) mg/dL Total Bilirubin 0.6 (0.2-1.0) mg/dL AST 25 (15-37) U/L ALT 30 (16-63) U/L Alkaline Phosphatase 59 (46-116) U/L Total Protein 7.5 (6.4-8.2) g/dl Albumin 3.1 L (3.4-5.0) g/dl Globulin 4.4 gm/dL Albumin/Globulin Ratio 0.7 L (1-2) Urine Color Light yellow (Yellow) Urine Appearance Clear (Clear) Urine pH 6.0 (5.0-8.0) Ur Specific [place] 1.015 (1.005-1.030) Urine Protein Negative (Negative) Urine Glucose (UA) Negative (Negative) Urine Ketones Negative (Negative) Urine Occult Blood Negative (Negative) Urine Nitrite Negative (Negative) Urine Bilirubin Negative (Negative) Urine Urobilinogen 0.2 (0.2-1.0) Ur Leukocyte Esterase Negative (Negative) Urine RBC Not seen (0-5) /hpf Urine WBC Not seen (0-5) /hpf Ur Epithelial Cells 0-5 (0-5) /hpf Urine Bacteria Not seen (FEW) /hpf Urine Mucus Not seen (FEW) /hpf Meds: Medications Generic Name Dose Route Start Last Admin Trade Name Freq PRN Reason Stop Dose Admin Sodium Chloride 10 ml 03/05/18 14:32 03/05/18 14:43 Saline Flush FLUSH 10 ml ASDIRECTED PRN Administration Keep Vein Open Discontinued Medications Generic Name Dose Route Start Last Admin Trade Name Freq PRN Reason Stop Dose Admin Sodium Chloride 250 mls @ 999 mls/hr 03/05/18 14:37 03/05/18 14:43 Normal Saline IV 03/05/18 14:52 999 mls/hr ONETIME ONE Administration Departure - Departure Time of Disposition: 16:32 Disposition: Home, Self-Care 01 Condition: Fair Clinical Impression: Bradycardia, Hypotension Referrals: Jose Luis Bennett Jr, MD [Primary Care Provider] - Forms: ED Department Discharge - My Orders Last 24 Hours: My Active Orders 03/05/18 14:32 Orthostatic Vital Signs [RC] ASDIRECTED Sodium Chloride 0.9% [Saline Flush] 10 ml FLUSH ASDIRECTED PRN Peripheral IV Insertion Adult [OM.PC] Routine 03/05/18 14:33 Peripheral IV Care [RC] . DIRECTED 03/05/18 15:19 EKG 12 Lead [EKG Documentation Completion] [RC] STAT 03/05/18 15:38 Hemoccult [Fecal Occult Blood Collection] [RC] ASDIRECTED 03/05/18 16:00 UA W/MICROSCOPIC [URIN] Stat - Assessment/Plan Last 24 Hours: My Active Orders 03/05/18 14:32 Orthostatic Vital Signs [RC] ASDIRECTED Sodium Chloride 0.9% [Saline Flush] 10 ml FLUSH ASDIRECTED PRN Peripheral IV Insertion Adult [OM.PC] Routine 03/05/18 14:33 Peripheral IV Care [RC] . DIRECTED 03/05/18 15:19 EKG 12 Lead [EKG Documentation Completion] [RC] STAT 03/05/18 15:38 Hemoccult [Fecal Occult Blood Collection] [RC] ASDIRECTED 03/05/18 16:00 UA W/MICROSCOPIC [URIN] Stat Rest. Make sure you are drinking plenty of fluids. Follow-up with your PCP next week. You may require a pacemaker for management of your bradycardia. Recommend discontinuing your PM dose of coreg, continue the morning dose. Monitor your BP and record it to take it to Dr. Bennett. Return to ER if symptoms change or worsen.
[2018-03-05 17:13] VITALS: BP 112/83
== END 2018-03-05 17:05 | disposition home or self-care (01) ==
LOC: JD.ED 14:02
DX: I95.9 Hypotension, unspecified (principal); R00.1 Bradycardia, unspecified; I48.91 Unspecified atrial fibrillation; I10 Essential (primary) hypertension; J45.909 Unspecified asthma, uncomplicated; G47.30 Sleep apnea, unspecified; Z99.89 Dependence on other enabling machines and devices; Z87.891 Personal history of nicotine dependence; Z79.899 Other long term (current) drug therapy; Z79.01 Long term (current) use of anticoagulants
CPT/HCPCS: 36415; 80053; 81001; 82270; 85025; 93005; 96360; 99284; J7040; J7050

== ENCOUNTER 2020-12-10 12:02 | Emergency (ER) | payer MEDICARE, BC ==
[2020-12-10 12:26] VITALS: BP 145/78; PULSE 78
[2020-12-10] MEDS ORDERED: methylPREDNISolone Sodium Succinate 125 MG/2 ML SDV IVPUSH ONE (12:38)
[2020-12-10] MEDS ORDERED: HYDROmorphone 0.5 MG/0.5 ML Syringe IVPUSH ONE (12:38)
--- NOTE | 2020-12-10 12:43 | EDM.PDOC ---
ED HPI GENERAL MEDICAL PROBLEM - General Chief Complaint: Back Pain or Injury Stated Complaint: [facility] Time Seen by Provider: 12/10/20 12:06 Source of Information: Reports: Patient, RN Notes Reviewed History Limitations: Reports: No Limitations - History of Present Illness INITIAL COMMENTS - FREE TEXT/NARRATIVE: Patient is a 80-year-old male presenting to the emergency department via [facility] with complaints of low back/bilateral buttock pain. Patient states this is a chronic pain for him related to arthritis. He states that the pain in his low back is minor, however the pain in his bilateral buttocks is quite severe. States that the right is worse than the left, however it is present bilaterally. He does have a diagnosis of RA. He is been on prednisone 20 mg daily, however they did wean him down to 10 mg daily. He did take 15 mg today to try to treat the discomfort. He states that when he gets flares like this, steroids generally help him. His primary care provider, Dr. Bennett, recently retired. He is scheduled to establish care with a new provider in 1 week. He denies any recent falls or injuries to the area. He ambulates at home with a walker. Takes Tylenol as needed for pain, however that is not helping. He is also on methotrexate for treatment of his RA. He denies any numbness or tingling in his legs. He has no bowel or bladder dysfunction. back Pain Score (Numeric/FACES): 4 - Related Data Allergies Allergy/AdvReac Type Severity Reaction Status Date / Time No Known Allergies Allergy Verified 12/10/20 12:26 Home Meds: Home Meds Ascorbic Acid [Vitamin C] 250 mg PO DAILY 04/07/17 [History] Bumetanide 1 tab PO ACDINNER 04/07/17 [History] Bumetanide 2 tab PO ACBREAKFAST 04/07/17 [History] Fish Oil/[place]-3 Fatty Acids [Fish Oil 1,000 MG] 1,000 mg PO DAILY 04/07/17 [History] Folic Acid 1 mg PO DAILY 04/07/17 [History] Lisinopril [Prinivil] 10 mg PO DAILY 04/07/17 [History] Methotrexate 10 mg PO WEEKLY 04/07/17 [History] Metolazone [Zaroxolyn] 2.5 mg PO DAILY 04/07/17 [History] Multivitamin [Multivitamins] 1 tab PO DAILY 04/07/17 [History] Potassium Chloride [Klor-Con M20] 1 tab PO ASDIRECTED 04/07/17 [History] Warfarin [Coumadin] 5 mg PO DAILY 04/07/17 [History] carvediloL [Coreg] 3.125 mg PO BID 10/08/17 [History] Cpap 1 dose IN ASDIRECTED 03/05/18 [History] Acetaminophen/HYDROcodone [[place] 325-5 MG] 1 tab PO Q4H PRN #10 tablet 12/10/20 [Rx] predniSONE [Prednisone] 20 mg PO ASDIRECTED #15 tablet 12/10/20 [Rx] Past Medical History HEENT History: Reports: Impaired Vision Cardiovascular History: Reports: Afib, Hypertension Respiratory History: Reports: Asthma, Sleep Apnea, Other (See Below) Other Respiratory History: wears CPAP Genitourinary History: Reports: Chronic Renal Insuffiency, Other (See Below) Other Genitourinary History: prostate cancer Musculoskeletal History: Reports: RA Endocrine/Metabolic History: Reports: Obesity/BMI 30+ Oncologic (Cancer) History: Reports: Prostate, Other (See Below) Other Oncologic History: LGL - Past Surgical History GI Surgical History: Reports: Hernia Repair/Other Musculoskeletal Surgical History: Reports: Hip Replacement Social & Family History - Family History Family Medical History: No Pertinent Family History - Tobacco Use Tobacco Use Status *Q: Former Tobacco User Used Tobacco, but Quit: Yes Month/Year Tobacco Last Used: 1979 - Caffeine Use Caffeine Use: Reports: Coffee, Tea Other Caffeine Use: Daily - Recreational Drug Use Recreational Drug Use: No ED ROS GENERAL - Review of Systems Review Of Systems: Comprehensive ROS is negative, except as noted in HPI. ED EXAM,LOWER BACK PAIN/INJURY - Physical Exam Exam: See Below Exam Limited By: No Limitations General Appearance: Alert, WD/WN, No Apparent Distress Respiratory/Chest: No Respiratory Distress, Lungs Clear, Normal Breath Sounds, No Accessory Muscle Use, Chest Non-Tender Cardiovascular: Normal Peripheral Pulses, Regular Rate, Rhythm, No Edema, No Gallop, No JVD, No Murmur, No Rub Back Exam: Normal Inspection, Other (Tenderness directly over the bilateral SI joints with the right being worse than the left). No: Paraspinal Tenderness, Vertebral Tenderness Neurological: Alert, Normal Mood/Affect, Normal Dorsiflexion, CN II-XII Intact, Normal Plantar Flexion, Normal Gait, No Motor/Sensory Deficits, Oriented x 3 Psychiatric: Normal Affect, Normal Mood Skin Exam: Warm, Dry, Intact, Normal Color, No Rash Course - Vital Signs Last Recorded V/S: Last Vital Signs Temp 96.8 F L 12/10/20 12:25 Pulse 78 12/10/20 12:25 Resp 20 12/10/20 12:25 BP 145/78 H 12/10/20 12:25 Pulse Ox 99 12/10/20 12:25 - Orders/Labs/Meds Labs: Laboratory Tests 12/10/20 12/10/20 Range/Units 12:08 12:08 WBC 6.80 (4.23-9.07) K/mm3 RBC 3.10 L (4.63-6.08) M/mm3 Hgb 10.8 L (13.7-17.5) gm/dl Hct 34.1 L (40.1-51.0) % MCV 110.0 H D (79.0-92.2) fl MCH 34.8 H (25.7-32.2) pg MCHC 31.7 L (32.2-35.5) g/dl RDW Std Deviation 62.6 H (35.1-43.9) fL Plt Count 202 (163-337) K/mm3 MPV 10.3 (9.4-12.3) fl Neut % (Auto) 85.9 H (34.0-67.9) % Lymph % (Auto) 10.7 L (21.8-53.1) % [place] % (Auto) 2.1 L (5.3-12.2) % Eos % (Auto) 1.0 (0.8-7.0) Baso % (Auto) 0.0 L (0.1-1.2) % Neut # (Auto) 5.84 H (1.78-5.38) K/mm3 Lymph # (Auto) 0.73 L (1.32-3.57) K/mm3 [place] # (Auto) 0.14 L (0.30-0.82) K/mm3 Eos # (Auto) 0.07 (0.04-0.54) K/mm3 Baso # (Auto) 0.00 L (0.01-0.08) K/mm3 Manual Slide Review Abnormal smear Sodium 140 (136-145) mEq/L Potassium 4.0 (3.5-5.1) mEq/L Chloride 102 (98-107) mEq/L Carbon Dioxide 27 (21-32) mEq/L Anion Gap 15.0 (5-15) BUN 39 H (7-18) mg/dL Creatinine 2.1 H (0.7-1.3) mg/dL Est Cr Clr Drug Dosing 27.10 mL/min Estimated GFR (MDRD) 31 (>60) mL/min BUN/Creatinine Ratio 18.6 H (14-18) Glucose 106 (83-115) mg/dL Calcium 8.6 (8.5-10.1) mg/dL Total Bilirubin 0.8 (0.2-1.0) mg/dL AST 21 (15-37) U/L ALT 28 (16-63) U/L Alkaline Phosphatase 42 L (46-116) U/L Total Protein 7.6 (6.4-8.2) g/dl Albumin 2.9 L (3.4-5.0) g/dl Globulin 4.7 gm/dL Albumin/Globulin Ratio 0.6 L (1-2) Meds: Medications Discontinued Medications Generic Name Dose Route Start Last Admin Trade Name Freq PRN Reason Stop Dose Admin Hydromorphone HCl 0.5 mg 12/10/20 12:38 12/10/20 12:48 Hydromorphone 0.5 Mg/0.5 Ml Syringe IVPUSH 12/10/20 12:39 0.5 mg ONETIME ONE Administration Methylprednisolone Sodium Succinate 125 mg 12/10/20 12:38 12/10/20 12:48 Methylprednisolone Sodium Succinate 125 Mg/2 Ml Sdv IVPUSH 12/10/20 12:39 125 mg ONETIME ONE Administration - Re-Assessments/Exams Free Text/Narrative Re-Assessment/Exam: Patient is a 80-year-old male presenting to the emergency department with complaints of buttocks and low back pain. On exam, he has significant tenderness over the right SI joint as well as tenderness over the left SI joint. The right is worse than the left. He has some mild low back pain but states that the pain in the buttocks is worse. He has a history of RA and states that he responds well to steroids. He has had no recent injuries. States this is a chronic pain for him. I have ordered Solu-Medrol 125 mg IV as well as Dilaudid 0.5 mg IV. 12/10/20 13:48 Hematology showed a hemoglobin slightly low at 10.8, BUN 39, creatinine 2.1. Patient was able to get up and walk after the medications given. States it is still slightly more painful than normal, however he feels that he is okay to go home. I will send him home with a prescription for [place] as needed for pain as well as a tapering dose of prednisone. He has an appointment to establish care with Rosanna Schrader in 1 week. He will discuss ongoing management from there. Discussed return precautions. Discharge instructions as documented. Departure - Departure Time of Disposition: 13:49 Disposition: Home, Self-Care 01 Condition: Good Clinical Impression: Rheumatoid arthritis flare, Chronic SI joint pain - Discharge Information *PRESCRIPTION DRUG MONITORING PROGRAM REVIEWED*: Yes *COPY OF PRESCRIPTION DRUG MONITORING REPORT IN PATIENT JOSEFA: No Prescriptions: Acetaminophen/HYDROcodone [[place] 325-5 MG] 1 tab PO Q4H PRN #10 tablet PRN Reason: Pain predniSONE [Prednisone] 20 mg PO ASDIRECTED #15 tablet Instructions: Arthritis, [id number], Chronic Back Pain, [id number] Referrals: Adrienne Schrader NP [Ordering Only Provider] - Forms: ED Department Discharge Additional Instructions: You were seen in the emergency department today for worsening of your low back and buttocks pain. Blood work was completed and found to be overall normal with the exception of her hemoglobin being slightly low at 10.8. While in the ER, you received IV steroids and pain medications which did improve your symptoms. You been put on a tapering dose of prednisone. Take this medication as prescribed starting tomorrow. You have also been provided a short course of pain medications. Recommend using these until the steroids take effect. Keep your appointment to establish care with Adrienne Schrader NP next week. If you should experience any new or worsening symptoms, please not hesitate to return to the emergency department for reevaluation. Sepsis Event Note (ED) - Evaluation Sepsis Screening Result: No Definite Risk - Focused Exam Vital Signs: Vital Signs Temp Pulse Resp BP Pulse Ox 12/10/20 12:25 96.8 F L 78 20 145/78 H 99
== END 2020-12-10 14:20 | disposition home or self-care (01) ==
LOC: JD.ED 12:02
DX: M06.9 Rheumatoid arthritis, unspecified (principal); M53.3 Sacrococcygeal disorders, not elsewhere classified; G89.29 Other chronic pain; I48.91 Unspecified atrial fibrillation; J45.909 Unspecified asthma, uncomplicated; I12.9 Hypertensive chronic kidney disease with stage 1 through stage 4 chronic kidney disease, or unspecified chronic kidney disease; N18.9 Chronic kidney disease, unspecified; E66.9 Obesity, unspecified; Z68.39 Body mass index [BMI] 39.0-39.9, adult; Z79.01 Long term (current) use of anticoagulants; Z79.899 Other long term (current) drug therapy; Z87.891 Personal history of nicotine dependence
CPT/HCPCS: 36415; 80053; 85025; 96374; 96375; 99283; J1170; J2930; 99284

== ENCOUNTER 2021-03-11 11:33 | Emergency (ER) | payer MEDICARE, BC ==
[2021-03-11 11:50] VITALS: PULSE 76
--- NOTE | 2021-03-11 14:02 | EDM.PDOC ---
ED HPI GENERAL MEDICAL PROBLEM - General Chief Complaint: Skin Complaint Stated Complaint: SORES ON BOTH LEGS Time Seen by Provider: 03/11/21 11:38 Source of Information: Reports: Patient, RN Notes Reviewed History Limitations: Reports: No Limitations - History of Present Illness INITIAL COMMENTS - FREE TEXT/NARRATIVE: Patient is a 80-year-old male presenting to the emergency department for evaluation of wound on his right lower extremity. He reports he has had this ulceration since December and he has been seeing surgeon, Dr. Salazar weekly. He was seen in the ER at [facility] in [place] on Thursday and told that he needs to see a behavioral intervention specialist to have this area debrided. Trying to schedule with a behavioral intervention specialist without success. They spoke to their primary care provider, Dr. Selby, who recommended they come to the emergency department. He is currently taking antibiotics of Bactrim and clindamycin. He is also on prednisone and methotrexate chronically for rheumatoid arthritis. Denies any fever, chills, nausea, vomiting, or diarrhea. Right Lower Leg Pain Score (Numeric/FACES): 4 - Related Data Allergies Allergy/AdvReac Type Severity Reaction Status Date / Time No Known Allergies Allergy Verified 03/11/21 11:49 Home Meds: Home Meds Ascorbic Acid [Vitamin C] 250 mg PO DAILY 04/07/17 [History] Bumetanide 1 tab PO BID 04/07/17 [History] Fish Oil/[place]-3 Fatty Acids [Fish Oil 1,000 MG] 1,000 mg PO DAILY 04/07/17 [History] Folic Acid 1 mg PO DAILY 04/07/17 [History] Methotrexate 7.5 mg PO WEEKLY 04/07/17 [History] Metolazone [Zaroxolyn] 2.5 mg PO DAILY PRN 04/07/17 [History] Multivitamin [Multivitamins] 1 tab PO DAILY 04/07/17 [History] Potassium Chloride [Klor-Con M20] 1 tab PO ASDIRECTED 04/07/17 [History] Warfarin [Coumadin] 5 mg PO SUTUWETHFRSA 04/07/17 [History] Albuterol Sulfate [Albuterol Sulfate HFA] 2 puff INH Q4H PRN 03/11/21 [History] Clindamycin HCl 150 mg PO QID 03/11/21 [History] Gabapentin [Neurontin] 100 mg PO BEDTIME 03/11/21 [History] Metoprolol Succinate 100 mg PO BID 03/11/21 [History] Sulfamethoxazole/Trimethoprim [Sulfamethoxazole-Tmp Ds Tablet] 1 each PO BID 03/11/21 [History] Warfarin [Coumadin] 2.5 mg PO MO 03/11/21 [History] calcitrioL [Calcitriol] 0.25 mcg PO MOFR 03/11/21 [History] predniSONE [Prednisone] 5 - 20 mg PO DAILY PRN 03/11/21 [History] predniSONE [Prednisone] 7.5 mg PO DAILY 03/11/21 [History] Past Medical History HEENT History: Reports: Impaired Vision Cardiovascular History: Reports: Afib, Hypertension Respiratory History: Reports: Asthma, Sleep Apnea, Other (See Below) Other Respiratory History: wears CPAP Genitourinary History: Reports: Chronic Renal Insuffiency, Other (See Below) Other Genitourinary History: prostate cancer Musculoskeletal History: Reports: RA Endocrine/Metabolic History: Reports: Obesity/BMI 30+ Oncologic (Cancer) History: Reports: Prostate, Other (See Below) Other Oncologic History: LGL - Past Surgical History GI Surgical History: Reports: Hernia Repair/Other Musculoskeletal Surgical History: Reports: Hip Replacement Social & Family History - Family History Family Medical History: No Pertinent Family History - Tobacco Use Tobacco Use Status *Q: Never Tobacco User - Caffeine Use Caffeine Use: Reports: Coffee, Tea Other Caffeine Use: Daily - Recreational Drug Use Recreational Drug Use: No ED ROS GENERAL - Review of Systems Review Of Systems: See Below Constitutional: Reports: No Symptoms. Denies: Fever, Chills HEENT: Reports: No Symptoms Respiratory: Reports: No Symptoms Cardiovascular: Reports: No Symptoms Endocrine: Reports: No Symptoms GI/Abdominal: Reports: No Symptoms. Denies: Nausea, Vomiting : Reports: No Symptoms Musculoskeletal: Reports: No Symptoms Skin: Reports: Lesions Neurological: Reports: No Symptoms Psychiatric: Reports: No Symptoms Hematologic/Lymphatic: Reports: No Symptoms Immunologic: Reports: No Symptoms ED EXAM, SKIN/RASH Exam: See Below General Appearance: Alert, WD/WN, No Apparent Distress Respiratory/Chest: No Respiratory Distress, Lungs Clear, Normal Breath Sounds, No Accessory Muscle Use, Chest Non-Tender Cardiovascular: Normal Peripheral Pulses, Regular Rate, Rhythm, No Gallop, No JVD, No Murmur, No Rub Extremities: Other (7cm x 5cm ulceration to right lateral blevins. Area is covered in a black escar. Surrounding skin shows stasis discoloration. 5 cm closed, purple area to left lateral lower extremity.) Neurological: Alert, Oriented, CN II-XII Intact, Normal Cognition, Normal Gait, Normal Reflexes, No Motor/Sensory Deficits Psychiatric: Normal Affect, Normal Mood Course - Vital Signs Last Recorded V/S: Last Vital Signs Temp 97.7 F 03/11/21 14:55 Pulse 76 03/11/21 14:55 Resp 18 03/11/21 14:55 BP 107/74 03/11/21 14:55 Pulse Ox 97 03/11/21 14:55 - Orders/Labs/Meds Labs: Laboratory Tests 03/11/21 03/11/21 Range/Units 12:09 12:09 WBC 8.97 (4.23-9.07) K/mm3 RBC 3.45 L (4.63-6.08) M/mm3 Hgb 12.0 L (13.7-17.5) gm/dl Hct 35.7 L (40.1-51.0) % MCV 103.5 H D (79.0-92.2) fl MCH 34.8 H (25.7-32.2) pg MCHC 33.6 (32.2-35.5) g/dl RDW Std Deviation 64.3 H (35.1-43.9) fL Plt Count 229 (163-337) K/mm3 MPV 9.7 (9.4-12.3) fl Neut % (Auto) 75.1 H (34.0-67.9) % Lymph % (Auto) 7.9 L (21.8-53.1) % [place] % (Auto) 13.7 H (5.3-12.2) % Eos % (Auto) 1.3 (0.8-7.0) Baso % (Auto) 0.3 (0.1-1.2) % Neut # (Auto) 6.73 H (1.78-5.38) K/mm3 Lymph # (Auto) 0.71 L (1.32-3.57) K/mm3 [place] # (Auto) 1.23 H (0.30-0.82) K/mm3 Eos # (Auto) 0.12 (0.04-0.54) K/mm3 Baso # (Auto) 0.03 (0.01-0.08) K/mm3 Manual Slide Review Abnormal smear Sodium 141 (136-145) mEq/L Potassium 3.5 (3.5-5.1) mEq/L Chloride 102 (98-107) mEq/L Carbon Dioxide 26 (21-32) mEq/L Anion Gap 16.5 H (5-15) BUN 48 H (7-18) mg/dL Creatinine 3.2 H (0.7-1.3) mg/dL Est Cr Clr Drug Dosing 17.17 mL/min Estimated GFR (MDRD) 19 (>60) mL/min BUN/Creatinine Ratio 15.0 (14-18) Glucose 100 H (70-99) mg/dL Calcium 8.9 (8.5-10.1) mg/dL Total Bilirubin 0.4 (0.2-1.0) mg/dL AST 19 (15-37) U/L ALT 27 (16-63) U/L Alkaline Phosphatase 47 (46-116) U/L Total Protein 7.0 (6.4-8.2) g/dl Albumin 3.1 L (3.4-5.0) g/dl Globulin 3.9 gm/dL Albumin/Globulin Ratio 0.8 L (1-2) - Re-Assessments/Exams Free Text/Narrative Re-Assessment/Exam: Patient is a 80-year-old male presenting to the emergency department with complaints of an open ulceration on his right lower extremity as well as beginnings of a ulceration left lower extremity which is currently closed. He was scheduled to see Dr. Salazar today but canceled his appointment because he was told he needs to see a behavioral intervention specialist. I have ordered blood work. We will make phone calls to see if wound care would be appropriate for this patient, however given the extent of ulceration, I feel continuing to see the surgeon is likely his best option 03/11/21 13:59 Hematology shows no evidence of infection. Patient does have chronic kidney disease as reflected in his labs. [facility] with [facility] was consulted by nursing staff in the verbalize that this is beyond the scope of their practice. I did speak with the general surgeon, Dr. Salazar. She recommend applying Xeroform gauze and covering with gauze and Coban. They will contact them and get them in to the clinic as soon as possible to discuss ongoing management. Patient will be discharged home. Discharge instructions as documented. Departure - Departure Time of Disposition: 14:00 Disposition: Home, Self-Care 01 Condition: Good Clinical Impression: Non-pressure chronic ulcer left lower leg, limited to breakdown skin - Discharge Information *PRESCRIPTION DRUG MONITORING PROGRAM REVIEWED*: No *COPY OF PRESCRIPTION DRUG MONITORING REPORT IN PATIENT JOSEFA: No Instructions: Pressure Injury Referrals: Adrienne Schrader NP [Primary Care Provider] - Martin-Yvette Rojo MD [Physician] - Forms: ED Department Discharge Additional Instructions: You were seen in the emergency department today for evaluation of a chronic ulcer to your right lower extremity. Blood work was completed and showed no evidence of systemic infection. Unfortunately, to the extent of your ulceration , a wound care nurse would not be appropriate. Dr. Salazar's office will be reaching out to you to get you in at her next available appointment. Recommend keeping the dressing in place that was applied today. Continue the antibiotics that you have been prescribed. Return to ER for any new or worsening symptoms. Sepsis Event Note (ED) - Evaluation Sepsis Screening Result: No Definite Risk
[2021-03-11 15:03] VITALS: BP 107/74
== END 2021-03-11 15:00 | disposition home or self-care (01) ==
LOC: JD.ED 11:33
DX: L97.921 Non-pressure chronic ulcer of unspecified part of left lower leg limited to breakdown of skin (principal); I48.91 Unspecified atrial fibrillation; I12.9 Hypertensive chronic kidney disease with stage 1 through stage 4 chronic kidney disease, or unspecified chronic kidney disease; N18.9 Chronic kidney disease, unspecified; J45.909 Unspecified asthma, uncomplicated; M06.9 Rheumatoid arthritis, unspecified; E66.9 Obesity, unspecified; Z68.39 Body mass index [BMI] 39.0-39.9, adult; Z79.899 Other long term (current) drug therapy
CPT/HCPCS: 36415; 80053; 85025; 99283

== ENCOUNTER 2021-03-15 14:52 | Emergency (ER) | payer MEDICARE, BC ==
[2021-03-15] MEDS ORDERED: Sodium Chloride 0.9% 10 ML Syringe FLUSH PRN (15:56)
[2021-03-15] MEDS ORDERED: HYDROmorphone 0.5 MG/0.5 ML Syringe IVPUSH ONE ×2 (15:57→18:15)
--- NOTE | 2021-03-15 16:54 | CT ---
CT lumbar spine Technique: Multiple axial sections were obtained from above the T9-10 disc inferiorly the L5-S1 disc. Reconstructed coronal and sagittal images were obtained. Comparison: No prior lumbar spine imaging is available. Findings: Upper abdominal aorta measures 3.6 cm in AP dimension. More distal abdominal aorta measures 2.5 cm in AP dimension. There is severe disc space narrowing noted at T9-10, T12-L1, L1-2, L2-3, L3-4, L4-5 and L5-S1. Vacuum disc phenomena is seen within several of the discs. Scattered endplate sclerosis is noted within multiple levels. Degenerative change is seen within the sacroiliac joints. Scattered degenerative change is noted within the apophyseal joints. There is no fracture being seen. No abnormal subluxation is seen. Impression: 1. Diffuse degenerative change as described above. No acute fracture or abnormal subluxation is seen. 2. Slightly aneurysmal abdominal aorta with measurements as noted above. Diagnostic code #3
[2021-03-15] MEDS ORDERED: cefTRIAXone 2 GM in Sodium Chloride 0.9% 100 ML IV ONE (18:15)
--- NOTE | 2021-03-15 18:27 | EDM.PDOC ---
ED HPI GENERAL MEDICAL PROBLEM - General Chief Complaint: Back Pain or Injury Stated Complaint: [facility] Time Seen by Provider: 03/15/21 15:27 Source of Information: Reports: Patient, Family, Old Records History Limitations: Reports: No Limitations - History of Present Illness INITIAL COMMENTS - FREE TEXT/NARRATIVE: The patient presents with family for left low back pain. He has been treated for venous stasis ulcers on both legs. The right has a large one measuring about 7cm X 5cm on the anterior leg. There is a smaller one to the posterior right leg. There is also a smaller one to the left lower posterior leg. This has been going on for about 6 to 8 weeks. He is on antibiotics. He has seen a surgeon in [email or web address] and it has not been helping and getting worse. He is scheduled to see another surgeon in a couple of days. He was at his provider yesterday and they were doing x-rays of both legs. He fell backward and hit his low back on the x-ray table. The pain has worsened through the night. He has pain in both legs and weakness with it. He has no fever, chills, cough, chest pain, shortness of breath, abdominal paredes, nausea or vomiting. Onset: Gradual Duration: Day(s): Location: Reports: Back Quality: Reports: Sharp Severity: Severe Improves with: Reports: Immobilization Worsens with: Reports: Movement Context: Reports: Trauma (Fell and hit the x-ray table) Associated Symptoms: Reports: No Other Symptoms Lower Back Pain Score (Numeric/FACES): 9 - Related Data Allergies Allergy/AdvReac Type Severity Reaction Status Date / Time No Known Allergies Allergy Verified 03/15/21 15:14 Home Meds: Home Meds Ascorbic Acid [Vitamin C] 250 mg PO DAILY 04/07/17 [History] Bumetanide 1 tab PO BID 04/07/17 [History] Fish Oil/[place]-3 Fatty Acids [Fish Oil 1,000 MG] 1,000 mg PO DAILY 04/07/17 [History] Folic Acid 1 mg PO DAILY 04/07/17 [History] Methotrexate 7.5 mg PO WEEKLY 04/07/17 [History] Metolazone [Zaroxolyn] 2.5 mg PO DAILY PRN 04/07/17 [History] Multivitamin [Multivitamins] 1 tab PO DAILY 04/07/17 [History] Potassium Chloride [Klor-Con M20] 1 tab PO ASDIRECTED 04/07/17 [History] Warfarin [Coumadin] 5 mg PO SUTUWETHFRSA 04/07/17 [History] Albuterol Sulfate [Albuterol Sulfate HFA] 2 puff INH Q4H PRN 03/11/21 [History] Clindamycin HCl 150 mg PO QID 03/11/21 [History] Gabapentin [Neurontin] 100 mg PO BEDTIME 03/11/21 [History] Metoprolol Succinate 100 mg PO BID 03/11/21 [History] Sulfamethoxazole/Trimethoprim [Sulfamethoxazole-Tmp Ds Tablet] 1 each PO BID 03/11/21 [History] Warfarin [Coumadin] 2.5 mg PO MO 03/11/21 [History] calcitrioL [Calcitriol] 0.25 mcg PO MOFR 03/11/21 [History] predniSONE [Prednisone] 5 - 20 mg PO DAILY PRN 03/11/21 [History] predniSONE [Prednisone] 7.5 mg PO DAILY 03/11/21 [History] Past Medical History HEENT History: Reports: Impaired Vision Cardiovascular History: Reports: Afib, Hypertension Respiratory History: Reports: Asthma, Sleep Apnea, Other (See Below) Other Respiratory History: wears CPAP Genitourinary History: Reports: Chronic Renal Insuffiency, Other (See Below) Other Genitourinary History: prostate cancer Musculoskeletal History: Reports: RA Endocrine/Metabolic History: Reports: Obesity/BMI 30+ Oncologic (Cancer) History: Reports: Prostate, Other (See Below) Other Oncologic History: LGL - Past Surgical History GI Surgical History: Reports: Hernia Repair/Other Musculoskeletal Surgical History: Reports: Hip Replacement Social & Family History - Family History Family Medical History: No Pertinent Family History - Tobacco Use Tobacco Use Status *Q: Never Tobacco User - Caffeine Use Caffeine Use: Reports: Soda Other Caffeine Use: Daily - Recreational Drug Use Recreational Drug Use: No ED ROS GENERAL - Review of Systems Review Of Systems: See Below Constitutional: Reports: No Symptoms HEENT: Reports: No Symptoms Respiratory: Reports: No Symptoms Cardiovascular: Reports: No Symptoms Endocrine: Reports: No Symptoms GI/Abdominal: Reports: No Symptoms : Reports: No Symptoms Musculoskeletal: Reports: Back Pain ED EXAM,LOWER BACK PAIN/INJURY - Physical Exam Exam: See Below Exam Limited By: No Limitations General Appearance: Alert, No Apparent Distress Ears: Normal External Exam Nose: Normal Inspection Head: Atraumatic, Normocephalic Neck: Normal Inspection Respiratory/Chest: No Respiratory Distress, Lungs Clear, Normal Breath Sounds Cardiovascular: Regular Rate, Rhythm, No Edema, No Murmur GI/Abdominal: Soft, Non-Tender, No Organomegaly, No Mass Back Exam: Other (Pain upon palpation to the left lower back) Extremities: Other (5 X 7cm venous stasis ulcer to the right anterior lower leg with a smaller one to the right posterior leg. Left lower leg venous stasus ulcer.) Neurological: Alert, No Motor/Sensory Deficits, Oriented x 3 Course - Vital Signs Last Recorded V/S: Last Vital Signs Temp 97.9 F 03/15/21 14:52 Pulse 100 03/15/21 14:52 Resp 18 03/15/21 14:52 BP 97/66 03/15/21 14:52 Pulse Ox 96 03/15/21 14:52 - Orders/Labs/Meds Orders: Active Orders 24 hr Category Date Time Status Peripheral IV Care [RC] . DIRECTED Care 03/15/21 15:56 Active BLOOD CULTURE [MREF] Stat Lab 03/15/21 18:49 Received BLOOD CULTURE [MREF] Stat Lab 03/15/21 18:59 Received CORONAVIRUS COVID-19 CHASTITY [MOLEC] Stat Lab 03/15/21 19:03 Ordered ESR [SEDIMENTATION RATE AUTO] [HEME] Stat Lab 03/15/21 16:18 Received LACTIC ACID [CHEM] Stat Lab 03/15/21 18:49 Received Sodium Chloride 0.9% [Saline Flush] Med 03/15/21 15:56 Active 10 ml FLUSH ASDIRECTED PRN Peripheral IV Insertion Adult [OM.PC] Stat Oth 03/15/21 15:56 Ordered Medication Orders Sodium Chloride (Sodium Chloride 0.9% 10 Ml Syringe) 10 ml FLUSH ASDIRECTED PRN PRN Reason: Keep Vein Open Last Admin: 03/15/21 16:42 Dose: 10 ml Documented by: JORDANA Labs: Laboratory Tests 03/15/21 03/15/21 03/15/21 Range/Units 16:18 16:18 16:18 WBC 10.95 H (4.23-9.07) K/mm3 RBC 3.49 L (4.63-6.08) M/mm3 Hgb 11.9 L (13.7-17.5) gm/dl Hct 36.8 L (40.1-51.0) % MCV 105.4 H (79.0-92.2) fl MCH 34.1 H (25.7-32.2) pg MCHC 32.3 (32.2-35.5) g/dl RDW Std Deviation 64.6 H (35.1-43.9) fL Plt Count 219 (163-337) K/mm3 MPV 9.7 (9.4-12.3) fl Neut % (Auto) 79.8 H (34.0-67.9) % Lymph % (Auto) 5.7 L (21.8-53.1) % [place]elope % (Auto) 13.4 H (5.3-12.2) % Eos % (Auto) 0 L (0.8-7.0) Baso % (Auto) 0.2 (0.1-1.2) % Neut # (Auto) 8.74 H (1.78-5.38) K/mm3 Lymph # (Auto) 0.62 L (1.32-3.57) K/mm3 [place] # (Auto) 1.47 H (0.30-0.82) K/mm3 Eos # (Auto) 0.00 L (0.04-0.54) K/mm3 Baso # (Auto) 0.02 (0.01-0.08) K/mm3 Manual Slide Review Abnormal smear PT 49.9 H (9.7-12.0) SECONDS INR 4.81 Sodium 141 (136-145) mEq/L Potassium 3.8 (3.5-5.1) mEq/L Chloride 101 (98-107) mEq/L Carbon Dioxide 27 (21-32) mEq/L Anion Gap 16.8 H (5-15) BUN 46 H (7-18) mg/dL Creatinine 3.4 H (0.7-1.3) mg/dL Est Cr Clr Drug Dosing 15.58 mL/min Estimated GFR (MDRD) 18 (>60) mL/min BUN/Creatinine Ratio 13.5 L (14-18) Glucose 132 H (70-99) mg/dL Calcium 9.1 (8.5-10.1) mg/dL Total Bilirubin 0.9 (0.2-1.0) mg/dL AST 20 (15-37) U/L ALT 23 (16-63) U/L Alkaline Phosphatase 51 (46-116) U/L Total Protein 7.4 (6.4-8.2) g/dl Albumin 2.7 L (3.4-5.0) g/dl Globulin 4.7 gm/dL Albumin/Globulin Ratio 0.6 L (1-2) Urine Color (Yellow) Urine Appearance (Clear) Urine pH (5.0-8.0) Ur Specific [place] (1.005-1.030) Urine Protein (Negative) Urine Glucose (UA) (Negative) Urine Ketones (Negative) Urine Occult Blood (Negative) Urine Nitrite (Negative) Urine Bilirubin (Negative) Urine Urobilinogen (0.2-1.0) Ur Leukocyte Esterase (Negative) U Hyaline Cast (Auto) (0-5) /lpf Urine RBC (0-5) /hpf Urine WBC (0-5) /hpf Ur Epithelial Cells (0-5) /hpf Urine Bacteria (FEW) /hpf Urine Mucus (FEW) /hpf Urine Yeast (NOT SEEN) 03/15/21 Range/Units 18:30 WBC (4.23-9.07) K/mm3 RBC (4.63-6.08) M/mm3 Hgb (13.7-17.5) gm/dl Hct (40.1-51.0) % MCV (79.0-92.2) fl MCH (25.7-32.2) pg MCHC (32.2-35.5) g/dl RDW Std Deviation (35.1-43.9) fL Plt Count (163-337) K/mm3 MPV (9.4-12.3) fl Neut % (Auto) (34.0-67.9) % Lymph % (Auto) (21.8-53.1) % [place]elope % (Auto) (5.3-12.2) % Eos % (Auto) (0.8-7.0) Baso % (Auto) (0.1-1.2) % Neut # (Auto) (1.78-5.38) K/mm3 Lymph # (Auto) (1.32-3.57) K/mm3 [place] # (Auto) (0.30-0.82) K/mm3 Eos # (Auto) (0.04-0.54) K/mm3 Baso # (Auto) (0.01-0.08) K/mm3 Manual Slide Review PT (9.7-12.0) SECONDS INR Sodium (136-145) mEq/L Potassium (3.5-5.1) mEq/L Chloride (98-107) mEq/L Carbon Dioxide (21-32) mEq/L Anion Gap (5-15) BUN (7-18) mg/dL Creatinine (0.7-1.3) mg/dL Est Cr Clr Drug Dosing mL/min Estimated GFR (MDRD) (>60) mL/min BUN/Creatinine Ratio (14-18) Glucose (70-99) mg/dL Calcium (8.5-10.1) mg/dL Total Bilirubin (0.2-1.0) mg/dL AST (15-37) U/L ALT (16-63) U/L Alkaline Phosphatase (46-116) U/L Total Protein (6.4-8.2) g/dl Albumin (3.4-5.0) g/dl Globulin gm/dL Albumin/Globulin Ratio (1-2) Urine Color Yellow (Yellow) Urine Appearance Clear (Clear) Urine pH 6.0 (5.0-8.0) Ur Specific [place] 1.020 (1.005-1.030) Urine Protein 2+ H (Negative) Urine Glucose (UA) Negative (Negative) Urine Ketones Negative (Negative) Urine Occult Blood 2+ H (Negative) Urine Nitrite Negative (Negative) Urine Bilirubin Negative (Negative) Urine Urobilinogen 0.2 (0.2-1.0) Ur Leukocyte Esterase Negative (Negative) U Hyaline Cast (Auto) 5-10 H (0-5) /lpf Urine RBC 5-10 H (0-5) /hpf Urine WBC 0-5 (0-5) /hpf Ur Epithelial Cells Not seen (0-5) /hpf Urine Bacteria Few (FEW) /hpf Urine Mucus Rare (FEW) /hpf Urine Yeast Rare (NOT SEEN) Meds: Medications Generic Name Dose Route Start Last Admin Trade Name Freq PRN Reason Stop Dose Admin Sodium Chloride 10 ml 03/15/21 15:56 03/15/21 16:42 Sodium Chloride 0.9% 10 Ml Syringe FLUSH 10 ml ASDIRECTED PRN Administration Keep Vein Open Discontinued Medications Generic Name Dose Route Start Last Admin Trade Name Vanq PRN Reason Stop Dose Admin Hydromorphone HCl 0.5 mg 03/15/21 15:57 03/15/21 16:42 Hydromorphone 0.5 Mg/0.5 Ml Syringe IVPUSH 03/15/21 15:58 0.5 mg ONETIME ONE Administration Hydromorphone HCl 0.5 mg 03/15/21 18:15 Hydromorphone 0.5 Mg/0.5 Ml Syringe IVPUSH 03/15/21 18:16 ONETIME ONE Ceftriaxone Sodium 2 gm/ 100 mls @ 200 mls/hr 03/15/21 18:15 Sodium Chloride IV 03/15/21 18:44 ONETIME ONE - Re-Assessments/Exams Free Text/Narrative Re-Assessment/Exam: 03/15/21 19:11 I ordered an IV saline lock, CT of his back, labs and dilaudid 0.5mg IV. 03/15/21 19:12 His WBC was elevated at 10.95. His Hgb was low at 11.9. His INR was elevated at 4.81. It was 10.2 yesterday. His anion gap was elevated at 16.8. His creatinine was elevated at 3.4. His GFR was low at 18. His glucose was elevated at 132. His UA shows no UTI. The CT of his lumbar spine shows diffuse degenerative change. No acute fracture or abnormal subluxation is seen. Slightly aneurysmal abdominal aorta at 3.6cm. I ordered lactic acid, blood cultures and rocephin 2 grams IV. I feel he needs to be admitted. They have worked with the surgeon here and may need a higher lever of care. I called [facility] in [place] and talked with Dr Castro and he agreed to the transfer. Departure - Departure Time of Disposition: 19:25 Disposition: DC/Tfer to Acute Hospital 02 Condition: Fair Clinical Impression: Venous stasis ulcers of both lower extremities, Renal insufficiency, AAA (abdominal aortic aneurysm) without rupture - Discharge Information Referrals: Adrienne Schrader NP [Primary Care Provider] - Forms: ED Department Discharge Sepsis Event Note (ED) - Evaluation Sepsis Screening Result: No Definite Risk - Focused Exam Vital Signs: Vital Signs Temp Pulse Resp BP Pulse Ox 03/15/21 14:52 97.9 F 100 18 97/66 96 - My Orders Last 24 Hours: My Active Orders 03/15/21 15:56 Peripheral IV Care [RC] . DIRECTED Sodium Chloride 0.9% [Saline Flush] 10 ml FLUSH ASDIRECTED PRN Peripheral IV Insertion Adult [OM.PC] Stat 03/15/21 16:18 ESR [SEDIMENTATION RATE AUTO] [HEME] Stat 03/15/21 18:49 BLOOD CULTURE [MREF] Stat LACTIC ACID [CHEM] Stat 03/15/21 18:59 BLOOD CULTURE [MREF] Stat 03/15/21 19:03 CORONAVIRUS COVID-19 CHASTITY [MOLEC] Stat - Assessment/Plan Last 24 Hours: My Active Orders 03/15/21 15:56 Peripheral IV Care [RC] . DIRECTED Sodium Chloride 0.9% [Saline Flush] 10 ml FLUSH ASDIRECTED PRN Peripheral IV Insertion Adult [OM.PC] Stat 03/15/21 16:18 ESR [SEDIMENTATION RATE AUTO] [HEME] Stat 03/15/21 18:49 BLOOD CULTURE [MREF] Stat LACTIC ACID [CHEM] Stat 03/15/21 18:59 BLOOD CULTURE [MREF] Stat 03/15/21 19:03 CORONAVIRUS COVID-19 CHASTITY [MOLEC] Stat
[2021-03-15 22:50] VITALS: BP 131/104; PULSE 104
== END 2021-03-15 20:45 ==
LOC: JD.ED 14:52
DX: I71.4 Abdominal aortic aneurysm, without rupture (principal); I83.018 Varicose veins of right lower extremity with ulcer other part of lower leg; I83.028 Varicose veins of left lower extremity with ulcer other part of lower leg; L97.819 Non-pressure chronic ulcer of other part of right lower leg with unspecified severity; I48.91 Unspecified atrial fibrillation; I12.9 Hypertensive chronic kidney disease with stage 1 through stage 4 chronic kidney disease, or unspecified chronic kidney disease; N18.9 Chronic kidney disease, unspecified; E66.9 Obesity, unspecified; Z79.01 Long term (current) use of anticoagulants; Z79.899 Other long term (current) drug therapy; Z20.822 Contact with and (suspected) exposure to COVID-19; Z68.39 Body mass index [BMI] 39.0-39.9, adult
CPT/HCPCS: 36415; 72131; 80053; 81001; 83605; 85025; 85610; 85652; 87040; 96365; 96375; 96376; 99285; J0696; J1170; U0002; 99284

== ENCOUNTER 2021-06-28 15:50 | Emergency (ER) | payer MEDICARE, BC ==
[2021-06-28 16:11] VITALS: BP 127/76; PULSE 89
[2021-06-28] MEDS ORDERED: Sodium Chloride 0.9% 10 ML Syringe FLUSH PRN (16:38)
[2021-06-28] MEDS ORDERED: Sodium Chloride 0.9% 1,000 ML IV SCH (16:45)
[2021-06-28] MEDS ORDERED: HYDROmorphone 0.5 MG/0.5 ML Syringe IVPUSH ONE ×2 (18:09→19:39)
[2021-06-28] MEDS ORDERED: cefTRIAXone 2 GM in Sodium Chloride 0.9% 100 ML IV ONE (18:40)
--- NOTE | 2021-06-28 19:17 | EDM.PDOC ---
ED HPI GENERAL MEDICAL PROBLEM - General Chief Complaint: Skin Complaint Stated Complaint: [facility] Time Seen by Provider: 06/28/21 15:58 Source of Information: Reports: Patient History Limitations: Reports: No Limitations - History of Present Illness INITIAL COMMENTS - FREE TEXT/NARRATIVE: The patient presents by [facility] for lower leg wounds that are bleeding. The patient has been dealing with lower leg wounds for a few months. He was in the hospital at [place] and saw multiple specialists. 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 He is currently seeing Dr Oliveros. He put dressings on Thursday and used some aquaseel. Both legs have had areas that have been bleeding. He has no fever, chills, cough, chest pain, shortness of breath, abdominal pain, nausea or vomiting. He does have pain to both legs. Onset: Gradual Duration: Week(s): Quality: Reports: Sharp Severity: Mild Improves with: Reports: None Worsens with: Reports: None Associated Symptoms: Reports: No Other Symptoms Bilateral Leg Pain Score (Numeric/FACES): 5 - Related Data Allergies Allergy/AdvReac Type Severity Reaction Status Date / Time No Known Allergies Allergy Verified 06/28/21 16:11 Home Meds: Home Meds Albuterol Sulfate [Albuterol Sulfate HFA] 2 puff INH QID 03/11/21 [History] calcitrioL [Calcitriol] 0.25 mcg PO MOFR 03/11/21 [History] Apixaban [Eliquis] 5 mg PO BID 06/28/21 [History] Bumetanide 1 mg PO BID 06/28/21 [History] Bumetanide 2 mg PO BID 06/28/21 [History] Doxycycline [Vibra-Tabs] 100 mg PO Q12HR #20 tab 06/28/21 [Rx] Ferrous Sulfate 325 mg PO DAILY 06/28/21 [History] Gabapentin [Neurontin] 300 mg PO QID 06/28/21 [History] Metoprolol Succinate [Toprol XL 100mg] 100 mg PO DAILY 06/28/21 [History] Metoprolol Succinate [Toprol Xl] 50 mg PO BEDTIME 06/28/21 [History] Pramipexole [Mirapex] 0.125 mg PO TID 06/28/21 [History] allopurinoL [Zyloprim] 100 mg PO DAILY 06/28/21 [History] metOLazone [Metolazone] 5 mg PO Q48H 06/28/21 [History] oxyCODONE 5 mg PO Q6H PRN 06/28/21 [History] predniSONE [Prednisone] 20 mg PO DAILY 06/28/21 [History] Past Medical History HEENT History: Reports: Impaired Vision Cardiovascular History: Reports: Afib, Hypertension Respiratory History: Reports: Asthma, Sleep Apnea, Other (See Below) Other Respiratory History: wears CPAP Genitourinary History: Reports: Chronic Renal Insuffiency, Other (See Below) Other Genitourinary History: prostate cancer Musculoskeletal History: Reports: RA Endocrine/Metabolic History: Reports: Obesity/BMI 30+ Oncologic (Cancer) History: Reports: Prostate, Other (See Below) Other Oncologic History: LGL - Past Surgical History GI Surgical History: Reports: Hernia Repair/Other Musculoskeletal Surgical History: Reports: Hip Replacement Social & Family History - Family History Family Medical History: No Pertinent Family History - Tobacco Use Tobacco Use Status *Q: Never Tobacco User Second Hand Smoke Exposure: No - Caffeine Use Caffeine Use: Reports: Coffee, Soda Other Caffeine Use: Daily - Recreational Drug Use Recreational Drug Use: No ED ROS GENERAL - Review of Systems Review Of Systems: See Below Constitutional: Reports: No Symptoms HEENT: Reports: No Symptoms Respiratory: Reports: No Symptoms Cardiovascular: Reports: No Symptoms Endocrine: Reports: No Symptoms GI/Abdominal: Reports: No Symptoms : Reports: No Symptoms Musculoskeletal: Reports: Other (Bilateral leg lesions with some bleeding) ED EXAM, SKIN/RASH Exam: See Below Exam Limited By: No Limitations General Appearance: Alert, No Apparent Distress Ears: Normal External Exam Nose: Normal Inspection Head: Atraumatic, Normocephalic Neck: Normal Inspection Respiratory/Chest: No Respiratory Distress, Lungs Clear, Normal Breath Sounds Cardiovascular: Regular Rate, Rhythm, No Edema, No Murmur GI/Abdominal: Soft, Non-Tender, No Organomegaly, No Mass Extremities: Other (Multiple lesions on both legs with some active bleeding from a large lesion to the posterior left leg. Good sensation and pulses distally.) Course - Vital Signs Last Recorded V/S: Last Vital Signs Temp 98.1 F 06/28/21 16:10 Pulse 89 06/28/21 16:10 Resp 20 06/28/21 16:10 BP 127/76 06/28/21 16:10 Pulse Ox 100 06/28/21 16:10 - Orders/Labs/Meds Orders: Active Orders 24 hr Category Date Time Status Cardiac Monitoring [RC] . DIRECTED Care 06/28/21 16:38 Active Peripheral IV Care [RC] . DIRECTED Care 06/28/21 16:39 Active BLOOD CULTURE [MREF] Stat Lab 06/28/21 16:55 Received BLOOD CULTURE [MREF] Stat Lab 06/28/21 17:02 Received CORONAVIRUS COVID-19 CHASTITY [MOLEC] Stat Lab 06/28/21 17:07 Ordered Sodium Chloride 0.9% [Normal Saline] 1,000 ml Med 06/28/21 16:45 Active IV ASDIRECTED Sodium Chloride 0.9% [Saline Flush] Med 06/28/21 16:38 Active 10 ml FLUSH ASDIRECTED PRN Blood Culture x2 Reflex Set [OM.PC] Stat Oth 06/28/21 16:39 Ordered Peripheral IV Insertion Adult [OM.PC] Stat Oth 06/28/21 16:38 Ordered Medication Orders Sodium Chloride (Normal Saline) 1,000 mls @ 125 mls/hr IV ASDIRECTED ROSALINDA Last Admin: 06/28/21 17:10 Dose: 125 mls/hr Documented by: JORDANA Sodium Chloride (Sodium Chloride 0.9% 10 Ml Syringe) 10 ml FLUSH ASDIRECTED PRN PRN Reason: Keep Vein Open Last Admin: 06/28/21 17:09 Dose: 10 ml Documented by: JORDANA Labs: Laboratory Tests 06/28/21 06/28/21 06/28/21 Range/Units 16:55 16:55 16:55 WBC 11.32 H (4.23-9.07) K/mm3 RBC 3.08 L (4.63-6.08) M/mm3 Hgb 9.2 L D (13.7-17.5) gm/dl Hct 30.6 L (40.1-51.0) % MCV 99.4 H (79.0-92.2) fl MCH 29.9 (25.7-32.2) pg MCHC 30.1 L (32.2-35.5) g/dl RDW Std Deviation 58.8 H (35.1-43.9) fL Plt Count 195 (163-337) K/mm3 MPV 11.0 (9.4-12.3) fl Neut % (Auto) 88.4 H (34.0-67.9) % Lymph % (Auto) 4.4 L (21.8-53.1) % [place] % (Auto) 5.7 (5.3-12.2) % Eos % (Auto) 0.1 L (0.8-7.0) Baso % (Auto) 0.1 (0.1-1.2) % Neut # (Auto) 10.00 H (1.78-5.38) K/mm3 Lymph # (Auto) 0.50 L (1.32-3.57) K/mm3 [place] # (Auto) 0.65 (0.30-0.82) K/mm3 Eos # (Auto) 0.01 L (0.04-0.54) K/mm3 Baso # (Auto) 0.01 (0.01-0.08) K/mm3 Sodium 138 (136-145) mEq/L Potassium 3.8 (3.5-5.1) mEq/L Chloride 98 (98-107) mEq/L Carbon Dioxide 28 (21-32) mEq/L Anion Gap 15.8 H (5-15) BUN 46 H (7-18) mg/dL Creatinine 2.3 H (0.7-1.3) mg/dL Est Cr Clr Drug Dosing 23.89 mL/min Estimated GFR (MDRD) 28 (>60) mL/min BUN/Creatinine Ratio 20.0 H (14-18) Glucose 258 H (70-99) mg/dL Lactic Acid 3.8 H* (0.4-2.0) mmol/L Calcium 8.4 L (8.5-10.1) mg/dL Total Bilirubin 0.5 (0.2-1.0) mg/dL AST 38 H (15-37) U/L ALT 27 (16-63) U/L Alkaline Phosphatase 45 L (46-116) U/L C-Reactive Protein 15.5 H* (<1.0) mg/dL Total Protein 6.5 (6.4-8.2) g/dl Albumin 2.3 L (3.4-5.0) g/dl Globulin 4.2 gm/dL Albumin/Globulin Ratio 0.6 L (1-2) Meds: Medications Generic Name Dose Route Start Last Admin Trade Name Freq PRN Reason Stop Dose Admin Sodium Chloride 1,000 mls @ 125 mls/hr 06/28/21 16:45 06/28/21 17:10 Normal Saline IV 125 mls/hr ASDIRECTED ROSALINDA Administration Sodium Chloride 10 ml 06/28/21 16:38 06/28/21 17:09 Sodium Chloride 0.9% 10 Ml Syringe FLUSH 10 ml ASDIRECTED PRN Administration Keep Vein Open Discontinued Medications Generic Name Dose Route Start Last Admin Trade Name Freq PRN Reason Stop Dose Admin Hydromorphone HCl 0.5 mg 06/28/21 18:09 06/28/21 18:31 Hydromorphone 0.5 Mg/0.5 Ml Syringe IVPUSH 06/28/21 18:10 0.5 mg ONETIME ONE Administration Ceftriaxone Sodium 2 gm/ 100 mls @ 200 mls/hr 06/28/21 18:40 Sodium Chloride IV 06/28/21 19:09 ONETIME ONE - Re-Assessments/Exams Free Text/Narrative Re-Assessment/Exam: 06/28/21 19:17 I ordered an IV NS at 125ml/hr and labs. I dressed the left leg because it was activity bleeding. I did called Dr Oliveros and he says dress them and he can see him on Thursday. He said these are not infected. His WBC was elevated at 11.72. His Hgb was low at 9.2. His anion gap was elevated at 15.6. His creatinine was elevated at 2.3. His glucose was 258. his lactic acid was 3.8. His AST was 38. His CRP was elevated at 15.5. I did order rocephin 2 grams IV. I will get him on some doxycycline for at home. Given his labs I think that is appropriate. I will have my nurses dress his wounds. I will discharge him home. Departure - Departure Time of Disposition: 19:25 Disposition: Home, Self-Care 01 Condition: Good Clinical Impression: Venous stasis ulcers of both lower extremities Cellulitis Qualifiers: Site of cellulitis: extremity Site of cellulitis of extremity: lower extremity Laterality: unspecified laterality Qualified Code(s): L03.119 - Cellulitis of unspecified part of limb - Discharge Information *PRESCRIPTION DRUG MONITORING PROGRAM REVIEWED*: Not Applicable *COPY OF PRESCRIPTION DRUG MONITORING REPORT IN PATIENT JOSEFA: Not Applicable Prescriptions: Doxycycline [Vibra-Tabs] 100 mg PO Q12HR #20 tab Referrals: PCP,None [Primary Care Provider] - Peewee Oliveros MD [Physician] - 3 Days Additional Instructions: Take your medication as prescribed. Take they doxycycline 100mg 2 times per day. Clean and dress the wounds 2 times per day. Follow up with Dr Oliveros on Thursday. Please return if you are worse. Sepsis Event Note (ED) - Focused Exam Vital Signs: Vital Signs Temp Pulse Resp BP Pulse Ox 06/28/21 16:10 98.1 F 89 20 127/76 100 - My Orders Last 24 Hours: My Active Orders 06/28/21 16:38 Cardiac Monitoring [RC] . DIRECTED Sodium Chloride 0.9% [Saline Flush] 10 ml FLUSH ASDIRECTED PRN Peripheral IV Insertion Adult [OM.PC] Stat 06/28/21 16:39 Peripheral IV Care [RC] . DIRECTED Blood Culture x2 Reflex Set [OM.PC] Stat 06/28/21 16:45 Sodium Chloride 0.9% [Normal Saline] 1,000 ml IV ASDIRECTED 06/28/21 16:55 BLOOD CULTURE [MREF] Stat 06/28/21 17:02 BLOOD CULTURE [MREF] Stat 06/28/21 17:07 CORONAVIRUS COVID-19 CHASTITY [MOLEC] Stat - Assessment/Plan Last 24 Hours: My Active Orders 06/28/21 16:38 Cardiac Monitoring [RC] . DIRECTED Sodium Chloride 0.9% [Saline Flush] 10 ml FLUSH ASDIRECTED PRN Peripheral IV Insertion Adult [OM.PC] Stat 06/28/21 16:39 Peripheral IV Care [RC] . DIRECTED Blood Culture x2 Reflex Set [OM.PC] Stat 06/28/21 16:45 Sodium Chloride 0.9% [Normal Saline] 1,000 ml IV ASDIRECTED 06/28/21 16:55 BLOOD CULTURE [MREF] Stat 06/28/21 17:02 BLOOD CULTURE [MREF] Stat 06/28/21 17:07 CORONAVIRUS COVID-19 CHASTITY [MOLEC] Stat
== END 2021-06-28 20:42 | disposition home or self-care (01) ==
LOC: JD.ED 15:50
DX: L03.115 Cellulitis of right lower limb (principal); L03.116 Cellulitis of left lower limb; I83.018 Varicose veins of right lower extremity with ulcer other part of lower leg; I83.028 Varicose veins of left lower extremity with ulcer other part of lower leg; I48.91 Unspecified atrial fibrillation; I12.9 Hypertensive chronic kidney disease with stage 1 through stage 4 chronic kidney disease, or unspecified chronic kidney disease; N18.9 Chronic kidney disease, unspecified; J45.909 Unspecified asthma, uncomplicated; E66.9 Obesity, unspecified; Z68.38 Body mass index [BMI] 38.0-38.9, adult; Z79.899 Other long term (current) drug therapy; Z79.01 Long term (current) use of anticoagulants
CPT/HCPCS: 36415; 80053; 83605; 85025; 86140; 87040; 87150; 96365; 96375; 96376; 99284; J0696; J1170; J7030

== ENCOUNTER 2021-07-02 14:32 | Inpatient (IN) | payer MEDICARE, BC ==
--- NOTE | 2021-07-02 14:56 | EDM.PDOC ---
ED HPI GENERAL MEDICAL PROBLEM - General Chief Complaint: Possible Sepsis Stated Complaint: daniel amb Time Seen by Provider: 07/02/21 14:42 Source of Information: Reports: Patient, EMS, Other (new home care nurse) History Limitations: Reports: No Limitations - History of Present Illness INITIAL COMMENTS - FREE TEXT/NARRATIVE: 80-year-old male presents to the ED at the request of his home care nurse who seen him for the first time today. Patient presents primarily due to multiple deep ulcerations and skin sloughing both lower extremities with an area of gangrenous skin on the lateral portion of his left mid leg. Patient states he does not have much of an appetite which is not necessarily abnormal for him. He denies any obvious fever or chills. He did receive a phone call from his visit through the ED on June 28 at which time he is growing out a preliminary positive blood culture which ended up being a Staphylococcus coagulase negative organism. Patient was last seen through the ED on June 28, 2021 and final culture report was a staph epidermidis and it was unclear if this was a contaminant or not. The patient had been started on doxycycline which the organism should be susceptible to. Patient was to follow-up with Dr. Peewee Oliveros local surgeon but could not make the appointment simply because he could not get up and have the mobility to do so yesterday. His has been doing his dressings on his lower extremities and has been doing a very good job of this. There is an odor to of course to the wound since they are multiple and oozing some serous and purulent discharge from both legs. 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 Patient has a primary history of rheumatoid arthritis for greater than 50 years and has been on chronic prednisone on multiple occasions over many years. 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 He denies cough or sputum production denies fever or chills. Decreased mobility and decreased ability to care for himself. Onset: Other (Leg ulcers have been present for many months.) Duration: Chronic (Many months), Other (Apparently the leg ulcers are not getting any worse but they also are not getting any better.) Location: Reports: Upper Extremity, Right, Lower Extremity, Left (Patient has a combination of arterial and venous insufficiency involving both lower extremities with deep ulcerations which are full-thickness skin loss with secondary infection), Other Quality: Reports: Ache (Chronic severe pain in both lower extremities), Burning, Stabbing, Other (Neurogenic pain) Severity: Severe Improves with: Reports: None (Not a 10) Worsens with: Reports: Movement (Or any attempt to weight-bear) Context: Reports: Other (He has had ulcerations to both lower extremities for greater than 6 months which is a combination of venous and arterial insufficiency on my exam). Denies: Activity, Exercise, Lifting, Sick Contact, Trauma Associated Symptoms: Reports: Fever/Chills, Loss of Appetite, Malaise, Rash, Shortness of Breath (Both lower extremities chronically. He is morbidly obese. Uses CPAP at bedtime but not oxygen at home), Weakness. Denies: Chest Pain, Cough, cough w sputum, Diaphoresis (Intermittent fevers no chills), Headaches, Nausea/Vomiting, Seizure, Syncope Treatments PRECISION GRINDER EXTERNAL: Reports: Acetaminophen (Generalized), Other (see below) (Uses Percocet tabs 5 325 mg usually 2 every 4-6 hours for pain relief) Bilateral Lower Leg Pain Score (Numeric/FACES): 9 - Related Data Allergies Allergy/AdvReac Type Severity Reaction Status Date / Time No Known Allergies Allergy Verified 07/02/21 19:24 Home Meds: Home Meds Albuterol Sulfate [Albuterol Sulfate HFA] 2 puff INH QID 03/11/21 [History] calcitrioL [Calcitriol] 0.25 mcg PO MOFR 03/11/21 [History] Apixaban [Eliquis] 5 mg PO BID 06/28/21 [History] Bumetanide 1 mg PO BID 06/28/21 [History] Bumetanide 2 mg PO BID 06/28/21 [History] Doxycycline [Vibra-Tabs] 100 mg PO Q12HR #20 tab 06/28/21 [Rx] Gabapentin [Neurontin] 300 mg PO QID 06/28/21 [History] Hydrocodone/Acetaminophen [Hydrocodone-Acetamin 5-325 mg] 1 - 2 each PO Q6H PRN #15 tablet 06/28/21 [Rx] Metoprolol Succinate [Toprol XL 100mg] 100 mg PO BID 06/28/21 [History] metOLazone [Metolazone] 5 mg PO Q48H 06/28/21 [History] oxyCODONE 5 mg PO Q6H PRN 06/28/21 [History] predniSONE [Prednisone] 20 mg PO DAILY 06/28/21 [History] Acetaminophen [Acetaminophen Extra Strength] 2 tab PO TID PRN 07/02/21 [History] Docusate Sodium [Colace] 100 mg PO DAILY 07/02/21 [History] Folic Acid 1 mg PO DAILY 07/02/21 [History] Multivitamin with Minerals [Multiple Vitamin] 1 tab PO DAILY 07/02/21 [History] [place]-3 Fatty Acids/Fish Oil [Fish Oil 1,000 mg Capsule] 1,000 mg PO DAILY 07/02/21 [History] Potassium Chloride 20 meq PO DAILY 07/02/21 [History] Vit A/Vit C/Vit E/Zinc/Copper [Icaps Areds Formula] 1 tab PO DAILY 07/02/21 [History] Vitamin A 1 cap PO DAILY 07/02/21 [History] Zinc 50 mg PO DAILY 07/02/21 [History] Past Medical History HEENT History: Reports: Impaired Vision Cardiovascular History: Reports: Afib (Chronic atrial fibrillation. He is on Eliquis 5 mg twice daily), Hypertension Respiratory History: Reports: Asthma, Sleep Apnea, Other (See Below) Other Respiratory History: wears CPAP at bedtime. He is not on home oxygen therapy although he is chronically dyspneic. 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 Genitourinary History: Reports: Chronic Renal Insuffiency, Other (See Below) Other Genitourinary History: prostate cancer Musculoskeletal History: Reports: RA Endocrine/Metabolic History: Reports: Obesity/BMI 30+ Oncologic (Cancer) History: Reports: Prostate, Other (See Below) Other Oncologic History: LGL - Past Surgical History GI Surgical History: Reports: Hernia Repair/Other Musculoskeletal Surgical History: Reports: Hip Replacement Social & Family History - Family History Family Medical History: No Pertinent Family History - Caffeine Use Caffeine Use: Reports: Coffee, Soda Other Caffeine Use: Daily - Living Situation & Occupation Living situation: Reports: , with Spouse (In their own home) Occupation: Retired ED ROS GENERAL - Review of Systems Review Of Systems: See Below Constitutional: Reports: Malaise, Weakness, Fatigue, Decreased Appetite. Denies: Fever, Chills HEENT: Reports: Glasses Respiratory: Reports: Shortness of Breath, Cough. Denies: Wheezing, Pleuritic Chest Pain (Chronically.), Sputum, Hemoptysis (Occasional nonproductive cough) Cardiovascular: Reports: Blood Pressure Problem, Dyspnea on Exertion (Chronic dependent edema to the knees bilaterally on minimal exertion), Edema, Orthopnea. Denies: Chest Pain, Claudication, Lightheadedness Endocrine: Reports: Fatigue GI/Abdominal: Reports: Constipation, Decreased Appetite, Nausea (Occasional) : Reports: Frequency, Incontinence (Simply cannot get to the bathroom in time) Musculoskeletal: Reports: Neck Pain, Back Pain, Joint Pain (Particularly both knees.), Other (Has rheumatoid arthritis primarily affecting his knees ankles MTP joints and MCP joints of his hands wrists and cervical spine.) Skin: Reports: Bruising (Oozes easily.), Other (Cushingoid appearance) Neurological: Reports: Difficulty Walking (Severe difficulty walking. He is no longer able to care for himself and his is no longer able to care for him at home either.), Weakness, Gait Disturbance (Chronic). Denies: Confusion, Dizziness, Headache, Syncope, Trouble Speaking, Change in Speech Psychiatric: Reports: Depression (Depression related to chronic illness) Hematologic/Lymphatic: Reports: No Symptoms Immunologic: Reports: No Symptoms ED EXAM, SKIN/RASH Exam: See Below Exam Limited By: No Limitations General Appearance: Alert, WD/WN, Mild Distress, Other (Strongly cushingoid appearance.) Eye Exam: Bilateral Eye: Normal Inspection (Mild blepharal pallor. No scleral icterus), PERRL Throat/Mouth: Other (Tongue is moist) Head: Atraumatic, Normocephalic Neck: Normal Inspection, Supple, Non-Tender, Full Range of Motion. No: Lymphadenopathy (L), Lymphadenopathy (R) Respiratory/Chest: Lungs Clear, Respiratory Distress (Tachypnea at rest), Decreased Breath Sounds (Mildly decreased to bilateral 20% of lung brennan posteriorly). No: Normal Breath Sounds, Rales, Rhonchi, Wheezing Cardiovascular: Regular Rate, Rhythm, No Gallop, No Murmur, No Rub. No: Normal Peripheral Pulses (No pulses are palpable below the femorals), No Edema Peripheral Pulses: 0: Posterior Tibial (L) (Not able to palpate pulses below the knees due to edema), Posterior Tibial (R), Dorsalis Pedis (L), Dorsalis Pedis (R) GI/Abdominal: Normal Bowel Sounds, Soft, Non-Tender, No Organomegaly, No Mass, Pelvis Stable, Hernia (Left inguinal hernia), Other (No surgical scars morbidly obese. This limits ability to palpate solid organs). No: Guarding, Rigid, Rebound, Tender Back Exam: Other (Patient is not able to roll or sit up for back exam) Extremities: Pedal Edema (Plus pitting edema past the knees bilaterally.), Leg Pain (Bilaterally which is chronic for him. Uses hydrocodone every 6 hours), Increased Warmth (Mild increased warmth over both anterior ankles worse slightly on the right as compared to the left) Neurological: Alert, Oriented, CN II-XII Intact, Normal Cognition, Other (At present the patient is unable to walk). No: Normal Gait Psychiatric: Normal Affect, Normal Mood Skin: Warm, Erythema (Mainly over the anterior ankles bilaterally worse on the right side as compared to the left), Other (Patient has multiple full-thickness ulcerations from ankles to knees bilaterally. There is a gangrenous patch measuring 14 x 12 cm mid lateral left leg. Wound smells strongly of anaerobic infection the wounds appear relatively clean. Skin loss is extensive) Location, Skin: Upper Extremity, Left (Deep full-thickness ulcerations multiple both lower extremities), Lower Extremity, Right Characteristics: Necrotic, Other (Area of gangrenous skin 12 x 14 cm lateral aspect left leg) Associated features: Warmth, Tenderness, Inflammation #1 Interpretation EKG Date: 07/02/21 Time: 15:27 Rhythm: A-Fib (With rate of 85-135 beats a minute) Rate (Beats/Min): 96 Donnellson: LAD-Left Donnellson Deviation (Marked left axis deviation of -82 degrees) P-Wave: Variable QRS: Other (There is a right bundle branch block pattern there are Q waves in leads II, III and aVF and one cannot rule out an old inferior wall myocardial infarction) ST-T: Other (T wave inversion most notable in lead aVL consider lateral wall ischemia) QT: Prolonged EKG Interpretation Comments: Abnormal ECG Course - Vital Signs Last Recorded V/S: Last Vital Signs Temp 37.6 C 07/02/21 14:41 Pulse 86 07/02/21 14:41 Resp 20 07/02/21 14:41 BP 137/91 H 07/02/21 14:41 Pulse Ox 97 07/02/21 14:41 - Orders/Labs/Meds Orders: Active Orders 24 hr Category Date Time Status Blood Glucose Check, Bedside [RC] ONETIME Care 07/02/21 14:53 Active BLOOD CULTURE [MREF] Stat Lab 07/02/21 15:15 Received BLOOD CULTURE [MREF] Stat Lab 07/02/21 15:22 Received Sodium Chloride 0.9% [Normal Saline] 1,000 ml Med 07/02/21 15:00 Active IV ASDIRECTED Blood Culture x2 Reflex Set [OM.PC] Stat Oth 07/02/21 14:54 Ordered Medication Orders Acetaminophen (Acetaminophen 325 Mg Tab) 650 mg PO Q6H PRN PRN Reason: Pain (Mild 1-3)/fever Hydrocodone Bitart/Acetaminophen (Acetaminophen/Hydrocodone 325-5 Mg Tab) 1 - 2 tab PO Q6H PRN PRN Reason: Pain (moderate 4-6) Albuterol (Albuterol 6.7 Gm Inhaler) 0 gm INH QID [facility] Albuterol/Ipratropium (Albuterol/Ipratropium 3.0-0.5 Mg/3 Ml Neb Soln) 3 ml NEB Q4H PRN PRN Reason: Shortness Of Breath/wheezing Apixaban (Apixaban 5 Mg Tab) 5 mg PO BID [facility] Calcitriol (Calcitriol 0.25 Mcg Cap) 0.25 mcg PO MoFr@0900 [facility] Docusate Sodium (Docusate Sodium 100 Mg Cap) 100 mg PO DAILY [facility] Folic Acid (Folic Acid 1 Mg Tab) 1 mg PO DAILY [facility] Gabapentin (Gabapentin 300 Mg Cap) 300 mg PO QID [facility] Hydromorphone HCl (Hydromorphone 0.5 Mg/0.5 Ml Syringe) 0.5 mg IVPUSH Q4H PRN PRN Reason: Pain (severe 7-10) Sodium Chloride (Normal Saline) 1,000 mls @ 75 mls/hr IV ASDIRECTED [facility] Promethazine HCl 6.25 mg/ (Sodium Chloride) 50.25 mls @ 100 mls/hr IV Q6H PRN PRN Reason: Nausea/Vomiting Ceftriaxone Sodium 2 gm/ (Sodium Chloride) 100 mls @ 200 mls/hr IV Q24H [facility] Clindamycin Phosphate 900 mg/ (Premix) 50 mls @ 100 mls/hr IV Q8H [facility] Metoprolol Succinate (Metoprolol Succinate 50 Mg Tab.Er) 100 mg PO BID [facility] Multivitamins/Minerals (Multivitamins With Iron/Calcium/Folic Acid/Minerals Tab) 1 each PO DAILY [facility] Prednisone (Prednisone 20 Mg Tab) 20 mg PO WITHBREAKFAST ROSALINDA Vit A/Vit C/Vit E/Selen/Cu/Zn/Lutei (Multivitamins With Minerals/Folic Acid/Lutein/Zeaxanth Tab) 1 tab PO DAILY [facility] Zinc Sulfate (Zinc Sulfate 220 Mg Cap) 220 mg PO DAILY [facility] Labs: Laboratory Tests 07/02/21 07/02/21 07/02/21 Range/Units 14:54 15:15 15:15 WBC 7.64 (4.23-9.07) K/mm3 RBC 3.32 L (4.63-6.08) M/mm3 Hgb 10.0 L (13.7-17.5) gm/dl Hct 32.8 L (40.1-51.0) % MCV 98.8 H (79.0-92.2) fl MCH 30.1 (25.7-32.2) pg MCHC 30.5 L (32.2-35.5) g/dl RDW Std Deviation 56.3 H (35.1-43.9) fL Plt Count 234 (163-337) K/mm3 MPV 10.1 (9.4-12.3) fl Neutrophils % (Manual) 92 H (40-60) % Band Neutrophils % 0 (0-10) % Lymphocytes % (Manual) 4 L (20-40) % Atypical Lymphs % 0 % Monocytes % (Manual) 4 (2-10) % Eosinophils % (Manual) 0 L (0.8-7.0) % Basophils % (Manual) 0 L (0.2-1.2) Platelet Estimate Adequate Plt Morphology Comment Normal Hypochromasia 2+ moderate Tear Drop Cells 2+ moderate RBC Morph Comment Abnormal ESR (0-15) mm/hr PT 11.3 D (9.7-12.0) SECONDS INR 1.02 APTT 26.8 (21.7-31.4) SECONDS Sodium (136-145) mEq/L Potassium (3.5-5.1) mEq/L Chloride (98-107) mEq/L Carbon Dioxide (21-32) mEq/L Anion Gap (5-15) BUN (7-18) mg/dL Creatinine (0.7-1.3) mg/dL Est Cr Clr Drug Dosing Estimated GFR (MDRD) (>60) mL/min BUN/Creatinine Ratio (14-18) Glucose (70-99) mg/dL Lactic Acid (0.4-2.0) mmol/L Calcium (8.5-10.1) mg/dL Magnesium (1.8-2.4) mg/dL Total Bilirubin (0.2-1.0) mg/dL AST (15-37) U/L ALT (16-63) U/L Alkaline Phosphatase (46-116) U/L Troponin I (0.00-0.056) ng/mL C-Reactive Protein (<1.0) mg/dL NT-Pro-B Natriuret Pep (0-450) pg/mL Total Protein (6.4-8.2) g/dl Albumin (3.4-5.0) g/dl Globulin gm/dL Albumin/Globulin Ratio (1-2) Urine Color Yellow (Yellow) Urine Appearance Clear (Clear) Urine pH 7.0 (5.0-8.0) Ur Specific [place] 1.015 (1.005-1.030) Urine Protein Trace H (Negative) Urine Glucose (UA) Negative (Negative) Urine Ketones Negative (Negative) Urine Occult Blood Negative (Negative) Urine Nitrite Negative (Negative) Urine Bilirubin Negative (Negative) Urine Urobilinogen 0.2 (0.2-1.0) Ur Leukocyte Esterase Negative (Negative) Urine RBC 0-5 (0-5) /hpf Urine WBC 0-5 (0-5) /hpf Ur Epithelial Cells 0-5 (0-5) /hpf Urine Bacteria Not seen (FEW) /hpf Urine Mucus Not seen (FEW) /hpf 07/02/21 07/02/21 07/02/21 Range/Units 15:15 15:15 15:15 WBC (4.23-9.07) K/mm3 RBC (4.63-6.08) M/mm3 Hgb (13.7-17.5) gm/dl Hct (40.1-51.0) % MCV (79.0-92.2) fl MCH (25.7-32.2) pg MCHC (32.2-35.5) g/dl RDW Std Deviation (35.1-43.9) fL Plt Count (163-337) K/mm3 MPV (9.4-12.3) fl Neutrophils % (Manual) (40-60) % Band Neutrophils % (0-10) % Lymphocytes % (Manual) (20-40) % Atypical Lymphs % % Monocytes % (Manual) (2-10) % Eosinophils % (Manual) (0.8-7.0) % Basophils % (Manual) (0.2-1.2) Platelet Estimate Plt Morphology Comment Hypochromasia Tear Drop Cells RBC Morph Comment ESR 92 H (0-15) mm/hr PT (9.7-12.0) SECONDS INR APTT (21.7-31.4) SECONDS Sodium 135 L (136-145) mEq/L Potassium 3.9 (3.5-5.1) mEq/L Chloride 97 L (98-107) mEq/L Carbon Dioxide 31 (21-32) mEq/L Anion Gap 10.9 (5-15) BUN 43 H (7-18) mg/dL Creatinine 2.1 H (0.7-1.3) mg/dL Est Cr Clr Drug Dosing TNP Estimated GFR (MDRD) 31 (>60) mL/min BUN/Creatinine Ratio 20.5 H (14-18) Glucose 179 H (70-99) mg/dL Lactic Acid 2.7 H* (0.4-2.0) mmol/L Calcium 9.1 (8.5-10.1) mg/dL Magnesium 1.9 (1.8-2.4) mg/dL Total Bilirubin 0.5 (0.2-1.0) mg/dL AST 25 (15-37) U/L ALT 41 (16-63) U/L Alkaline Phosphatase 46 (46-116) U/L Troponin I 0.063 H* (0.00-0.056) ng/mL C-Reactive Protein 6.9 H* (<1.0) mg/dL NT-Pro-B Natriuret Pep (0-450) pg/mL Total Protein 7.1 (6.4-8.2) g/dl Albumin 2.6 L (3.4-5.0) g/dl Globulin 4.5 gm/dL Albumin/Globulin Ratio 0.6 L (1-2) Urine Color (Yellow) Urine Appearance (Clear) Urine pH (5.0-8.0) Ur Specific [place] (1.005-1.030) Urine Protein (Negative) Urine Glucose (UA) (Negative) Urine Ketones (Negative) Urine Occult Blood (Negative) Urine Nitrite (Negative) Urine Bilirubin (Negative) Urine Urobilinogen (0.2-1.0) Ur Leukocyte Esterase (Negative) Urine RBC (0-5) /hpf Urine WBC (0-5) /hpf Ur Epithelial Cells (0-5) /hpf Urine Bacteria (FEW) /hpf Urine Mucus (FEW) /hpf 07/02/21 07/02/21 Range/Units 15:15 17:07 WBC (4.23-9.07) K/mm3 RBC (4.63-6.08) M/mm3 Hgb (13.7-17.5) gm/dl Hct (40.1-51.0) % MCV (79.0-92.2) fl MCH (25.7-32.2) pg MCHC (32.2-35.5) g/dl RDW Std Deviation (35.1-43.9) fL Plt Count (163-337) K/mm3 MPV (9.4-12.3) fl Neutrophils % (Manual) (40-60) % Band Neutrophils % (0-10) % Lymphocytes % (Manual) (20-40) % Atypical Lymphs % % Monocytes % (Manual) (2-10) % Eosinophils % (Manual) (0.8-7.0) % Basophils % (Manual) (0.2-1.2) Platelet Estimate Plt Morphology Comment Hypochromasia Tear Drop Cells RBC Morph Comment ESR (0-15) mm/hr PT (9.7-12.0) SECONDS INR APTT (21.7-31.4) SECONDS Sodium (136-145) mEq/L Potassium (3.5-5.1) mEq/L Chloride (98-107) mEq/L Carbon Dioxide (21-32) mEq/L Anion Gap (5-15) BUN (7-18) mg/dL Creatinine (0.7-1.3) mg/dL Est Cr Clr Drug Dosing Estimated GFR (MDRD) (>60) mL/min BUN/Creatinine Ratio (14-18) Glucose (70-99) mg/dL Lactic Acid 2.1 H* (0.4-2.0) mmol/L Calcium (8.5-10.1) mg/dL Magnesium (1.8-2.4) mg/dL Total Bilirubin (0.2-1.0) mg/dL AST (15-37) U/L ALT (16-63) U/L Alkaline Phosphatase (46-116) U/L Troponin I (0.00-0.056) ng/mL C-Reactive Protein (<1.0) mg/dL NT-Pro-B Natriuret Pep 59489 H (0-450) pg/mL Total Protein (6.4-8.2) g/dl Albumin (3.4-5.0) g/dl Globulin gm/dL Albumin/Globulin Ratio (1-2) Urine Color (Yellow) Urine Appearance (Clear) Urine pH (5.0-8.0) Ur Specific [place] (1.005-1.030) Urine Protein (Negative) Urine Glucose (UA) (Negative) Urine Ketones (Negative) Urine Occult Blood (Negative) Urine Nitrite (Negative) Urine Bilirubin (Negative) Urine Urobilinogen (0.2-1.0) Ur Leukocyte Esterase (Negative) Urine RBC (0-5) /hpf Urine WBC (0-5) /hpf Ur Epithelial Cells (0-5) /hpf Urine Bacteria (FEW) /hpf Urine Mucus (FEW) /hpf Meds: Medications Generic Name Dose Route Start Last Admin Trade Name Freq PRN Reason Stop Dose Admin Acetaminophen 650 mg 07/02/21 19:33 Acetaminophen 325 Mg Tab PO Q6H PRN Pain (Mild 1-3)/fever Hydrocodone Bitart/Acetaminophen 1 - 2 tab 07/02/21 19:46 Acetaminophen/Hydrocodone 325-5 Mg Tab PO Q6H PRN Pain (moderate 4-6) Albuterol 0 gm 07/02/21 21:00 Albuterol 6.7 Gm Inhaler INH QID [facility]IN[facility] Albuterol/Ipratropium 3 ml 07/02/21 19:33 Albuterol/Ipratropium 3.0-0.5 Mg/3 Ml Neb Soln NEB Q4H PRN Shortness Of Breath/wheezing Apixaban 5 mg 07/02/21 21:00 Apixaban 5 Mg Tab PO BID [facility] Calcitriol 0.25 mcg 07/05/21 09:00 Calcitriol 0.25 Mcg Cap PO MoFr@0900 [facility] Docusate Sodium 100 mg 07/03/21 09:00 Docusate Sodium 100 Mg Cap PO DAILY [facility] Folic Acid 1 mg 07/03/21 09:00 Folic Acid 1 Mg Tab PO DAILY [facility] Gabapentin 300 mg 07/02/21 21:00 Gabapentin 300 Mg Cap PO QID [facility] Hydromorphone HCl 0.5 mg 07/02/21 19:33 Hydromorphone 0.5 Mg/0.5 Ml Syringe IVPUSH Q4H PRN Pain (severe 7-10) Sodium Chloride 1,000 mls @ 75 mls/hr 07/02/21 15:00 Normal Saline IV ASDIRECTED [facility] Promethazine HCl 6.25 mg/ 50.25 mls @ 100 mls/hr 07/02/21 19:33 Sodium Chloride IV Q6H PRN Nausea/Vomiting Ceftriaxone Sodium 2 gm/ 100 mls @ 200 mls/hr 07/02/21 20:00 Sodium Chloride IV Q24H [facility] Clindamycin Phosphate 900 mg/ 50 mls @ 100 mls/hr 07/03/21 02:00 Premix IV Q8H [facility] Metoprolol Succinate 100 mg 07/02/21 21:00 Metoprolol Succinate 50 Mg Tab.Er PO BID [facility] Multivitamins/Minerals 1 each 07/03/21 09:00 Multivitamins With Iron/Calcium/Folic Acid/Minerals Tab PO DAILY [facility] Prednisone 20 mg 07/02/21 20:00 Prednisone 20 Mg Tab PO WITHBREAKFAST [facility] Vit A/Vit C/Vit E/Selen/Cu/Zn/Lutei 1 tab 07/03/21 09:00 Multivitamins With Minerals/Folic Acid/Lutein/Zeaxanth Tab PO DAILY [facility] Zinc Sulfate 220 mg 07/03/21 09:00 Zinc Sulfate 220 Mg Cap PO DAILY [facility] Discontinued Medications Generic Name Dose Route Start Last Admin Trade Name Freq PRN Reason Stop Dose Admin Bumetanide 2 mg 07/02/21 17:07 07/02/21 18:32 Bumetanide 1 Mg/4 Ml Mdv IVPUSH 07/02/21 17:08 2 mg ONETIME ONE Administration Doxycycline Hyclate 100 mg 07/02/21 17:06 07/02/21 18:29 Doxycycline 100 Mg Cap PO 07/02/21 17:07 100 mg ONETIME ONE Administration Hydromorphone HCl 1 mg 07/02/21 15:49 07/02/21 16:04 Hydromorphone 1 Mg/Ml Syringe IVPUSH 07/02/21 15:50 1 mg ONETIME ONE Administration Clindamycin Phosphate 900 mg/ 50 mls @ 100 mls/hr 07/02/21 17:06 07/02/21 18:32 Premix IV 07/02/21 17:35 100 mls/hr ONETIME ONE Administration Ondansetron HCl 4 mg 07/02/21 15:49 07/02/21 16:04 Ondansetron 4 Mg/2 Ml Sdv IVPUSH 07/02/21 15:50 4 mg ONETIME ONE Administration Oxycodone HCl 5 mg 07/02/21 19:33 Oxycodone 5 Mg Tab PO Q6H PRN Pain (moderate 4-6) Oxycodone/Acetaminophen 2 tab 07/02/21 17:05 07/02/21 18:29 Acetaminophen/Oxycodone 325-5 Mg Tab PO 07/02/21 17:06 2 tab ONETIME ONE Administration Potassium Chloride 20 meq 07/03/21 09:00 Potassium Chloride 20 Meq Tab.Er PO DAILY [facility] - Radiology Interpretation Free Text/Narrative:: 80-year-old male is brought to the ER by [place] [facility] due to concerns of his new home care nurse who seen him for the first time today. Patient has chronic ulcerations of both lower extremities which is a combination of arterial insufficiency and venous insufficiency with full-thickness skin loss up to the knees bilaterally for many months. His has been doing his dressings on a daily basis and been doing a very good job of it. He was seen on June [address] Chambers and had blood cultures drawn at that time. They came back suggesting that the blood culture was positive for Staphylococcus coagulase positive organism and later grew out staphalococcus epidermidis which is likely a contaminant. The patient is already on doxycycline 1 her milligrams twice daily which this organism should be sensitive to. The nurse that seen him on Thursday or June 28 states that his legs do not look any worse today than they did 5 days ago. - Re-Assessments/Exams Free Text/Narrative Re-Assessment/Exam: 07/02/21 16:05 80-year-old male presents to the ED per [place] [facility] from home where his has been caring for him. 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 These have become intermittently secondarily infected. He is currently on doxycycline 100 mg twice daily. He has a large gangrenous patch of skin lateral mid left leg measuring 14 x 12 cm and strong anaerobic infection smell to his wounds. Patient has chronic rheumatoid arthritis and has been on prednisone for many years and is steroid- dependent. He has a strong cushingoid appearance. At present he is no longer able to care for himself nor is his at home. The patient's leg ulcers will take 6 months to a year to heal with proper care in a treatment facility. I will do initial lab work-up to make sure there is no evidence of systemic infection. 07/02/21 16:06 patient is having increased pain in his lower extremities. He was given Dilaudid 1 mg IV with Zofran 4 mg IV which is the least of the evils in terms of Reglan not playing well with his other antidepressant medications. He has a prolonged QT interval and Zofran will prolong this as well. Chest x- ray done portably reveals moderate cardiomegaly. Slight tortuosity of the thoracic aorta is also appreciated. Pacemaker is noted left upper anterior chest. Lungs show minimal increased pulmonary vasculature lungs are otherwise clear. Bony structures show nothing acute 07/02/21 16:48 White blood cell count is normal at 7.64. The differential however reveals 92% neutrophils and 4% lymphocytes. Hemoglobin is 10.0 with hematocrit of 32.8 MCV is elevated at 98.8. Platelet count 234,000 the slide reveals 2+ hypochromasia and 2+ teardrop cells suggesting splenomegaly. His sed rate is 92. PT is 11.3 with an INR of 1.02 and a PTT of 26.8. Sodium 135 slightly low with a potassium of 3.9. Chloride is 97 with a bicarb of 31. Anion gap is 10.9. BUN is 43 with a creatinine of 2.1 and a BUN/creatinine ratio of 20.5. Glucose is 179 lactic acid is elevated at 2.7. Calcium is 9.1 magnesium is 1.9 liver function is normal. Troponin I is slightly elevated at 0.063 C-reactive protein is 6.9 and his BNP is 13,466 accounting for his elevated troponin I. Total protein is 7.1 with an albumin fraction of 2.6. 07/02/21 17:04 the patient is in a bit of a dilemma. He does have a mildly elevated lactic acid at 2.7 and a repeat will be done in 3 to 4 hours. I will increase his fluids to 500 mils an hour but also add 80 mg of Lasix to his treatment plan since his BNP is fifth 13,466. On reexamination he does feel warmer to me and appears to be running a low-grade temp. I am going to place him on clindamycin 900 mg IV bolus and he will still receive his doxycycline 100 mg p.o. I will have to speak to the hospitalist medical cost consultant with a view to admission to the hospital at least overnight as he is in no condition to go home. 07/02/21 18:00 I have spoken with on-call hospitalist Dr. Raines and the plan will be to admit the patient to hospital for observation status at this time. There is a very good chance that he will be taken to [facility] in [place] tomorrow to start to work on these terrible ulcerated legs as this will take several months to heal. I have spoken to both himself and his in the are both in agreement that this needs to occur. He is in so much pain that he can no longer hardly stand it. He sleeps sitting up at night due to his terrible pain in his legs. Departure - Departure Time of Disposition: 18:12 Disposition: Refer to Observation Condition: Serious Clinical Impression: Arterial insufficiency with ischemic ulcer, Venous insufficiency of both lower extremities, Steroid dependent, Elevated lactic acid level, Gangrene due to arterial insufficiency, Chronic pain syndrome Congestive heart failure Qualifiers: Heart failure type: diastolic Heart failure chronicity: acute on chronic Qualified Code(s): I50.33 - Acute on chronic diastolic (congestive) heart failure Chronic renal insufficiency, stage III (moderate) Qualifiers: Chronic kidney disease stage 3 subtype: stage 3b (GFR 30-44) Qualified Code(s): N18.32 - Chronic kidney disease, stage 3b Cellulitis of lower extremity Qualifiers: Laterality: left Qualified Code(s): L03.116 - Cellulitis of left lower limb - Discharge Information *PRESCRIPTION DRUG MONITORING PROGRAM REVIEWED*: Not Applicable *COPY OF PRESCRIPTION DRUG MONITORING REPORT IN PATIENT JOSEFA: Not Applicable Sepsis Event Note (ED) - Focused Exam Vital Signs: Vital Signs Temp Pulse Resp BP Pulse Ox 07/02/21 14:41 37.6 C 86 20 137/91 H 97 - My Orders Last 24 Hours: My Active Orders 07/02/21 14:53 Blood Glucose Check, Bedside [RC] ONETIME 07/02/21 14:54 Blood Culture x2 Reflex Set [OM.PC] Stat 07/02/21 15:00 Sodium Chloride 0.9% [Normal Saline] 1,000 ml IV ASDIRECTED 07/02/21 15:15 BLOOD CULTURE [MREF] Stat 07/02/21 15:22 BLOOD CULTURE [MREF] Stat - Assessment/Plan Last 24 Hours: My Active Orders 07/02/21 14:53 Blood Glucose Check, Bedside [RC] ONETIME 07/02/21 14:54 Blood Culture x2 Reflex Set [OM.PC] Stat 07/02/21 15:00 Sodium Chloride 0.9% [Normal Saline] 1,000 ml IV ASDIRECTED 07/02/21 15:15 BLOOD CULTURE [MREF] Stat 07/02/21 15:22 BLOOD CULTURE [MREF] Stat
[2021-07-02] MEDS ORDERED: HYDROmorphone 1 MG/ML Syringe IVPUSH ONE (15:49)
[2021-07-02] MEDS ORDERED: Ondansetron 4 MG/2 ML SDV IVPUSH ONE (15:49)
--- NOTE | 2021-07-02 16:36 | CR ---
Chest: Semi-upright view of the chest was obtained. Comparison: No prior chest imaging is available. Heart is enlarged. Slight tortuosity of the thoracic aorta is seen. Pacemaker is noted. Lungs show minimal increased pulmonary vessels. Lungs otherwise are clear. Bony structures show nothing acute. Impression: 1. Cardiomegaly. 2. Minimal pulmonary vascular congestion. 3. Pacemaker. Diagnostic code #3
[2021-07-02] MEDS ORDERED: Acetaminophen/oxyCODONE 325-5 MG Tab PO ONE (17:05)
[2021-07-02] MEDS ORDERED: Clindamycin Phosphate in D5W 900 MG in Premix Bag 1 BAG IV ONE ×2 (17:06)
[2021-07-02] MEDS ORDERED: Doxycycline 100 MG Cap PO ONE (17:06)
[2021-07-02] MEDS ORDERED: Bumetanide 1 MG/4 ML MDV IVPUSH ONE (17:07)
[2021-07-02] MEDS ORDERED: oxyCODONE 5 MG Tab PO PRN (19:33)
[2021-07-02] MEDS ORDERED: Promethazine 6.25 MG in Sodium Chloride 0.9% 50 ML IV PRN (19:33)
[2021-07-02] MEDS ORDERED: Acetaminophen 325 MG Tab PO PRN (19:33)
[2021-07-02] MEDS ORDERED: Albuterol/Ipratropium 3.0-0.5 MG/3 ML Neb Soln NEB PRN (19:33)
[2021-07-02] MEDS ORDERED: predniSONE 20 MG Tab PO SCH (20:00)
[2021-07-02] MEDS ORDERED: cefTRIAXone 2 GM in Sodium Chloride 0.9% 100 ML IV SCH (20:00)
--- NOTE | 2021-07-02 20:05 | PCM.HP.2 ---
H&P History of Present Illness - General Date of Service: 07/02/21 Admit Problem/Dx: Admission Diagnosis/Problem Admission Diagnosis/Problem Arterial insufficiency of lower extremity Source of Information: Patient, Provider, Other - History of Present Illness Initial Comments - Free Text/Narative: Patient is a 80-year-old male with a history of atrial fibrillation on Eliquis, CHF, sleep apnea on CPAP, chronic rheumatoid arthritis on long-term prednisone and CKD who was brought to the ER due to ulcerations of both legs. As per patient and , these ulcers started in December 2020. Patient was hospitalized to [facility] in [place]. Over there they found patient has arterial insufficiency of both legs. Patient complains of pain from both legs, decreased appetite and difficulty walking and standing up. Patient came to the ER on June 27 when blood culture was drawn, showing staph epidermidis (likely contamination). he was given doxycycline 100 mg twice daily. He was supposed to see general surgeon Dr. Peewee Oliveros yesterday but he was not able to see him because he could not get up. Patient has chronic rheumatoid arthritis, for which he has been taking prednisone for 30 to 40 years. Bilateral Lower Leg Pain Score (Numeric/FACES): 9 - Related Data Allergies/Adverse Reactions: Allergies Allergy/AdvReac Type Severity Reaction Status Date / Time No Known Allergies Allergy Verified 07/02/21 19:24 Home Medications: Home Meds Albuterol Sulfate [Albuterol Sulfate HFA] 2 puff INH QID 03/11/21 [History] calcitrioL [Calcitriol] 0.25 mcg PO MOFR 03/11/21 [History] Apixaban [Eliquis] 5 mg PO BID 06/28/21 [History] Bumetanide 1 mg PO BID 06/28/21 [History] Bumetanide 2 mg PO BID 06/28/21 [History] Doxycycline [Vibra-Tabs] 100 mg PO Q12HR #20 tab 06/28/21 [Rx] Gabapentin [Neurontin] 300 mg PO QID 06/28/21 [History] Hydrocodone/Acetaminophen [Hydrocodone-Acetamin 5-325 mg] 1 - 2 each PO Q6H PRN #15 tablet 06/28/21 [Rx] Metoprolol Succinate [Toprol XL 100mg] 100 mg PO BID 06/28/21 [History] metOLazone [Metolazone] 5 mg PO Q48H 06/28/21 [History] oxyCODONE 5 mg PO Q6H PRN 06/28/21 [History] predniSONE [Prednisone] 20 mg PO DAILY 06/28/21 [History] Acetaminophen [Acetaminophen Extra Strength] 2 tab PO TID PRN 07/02/21 [History] Docusate Sodium [Colace] 100 mg PO DAILY 07/02/21 [History] Folic Acid 1 mg PO DAILY 07/02/21 [History] Multivitamin with Minerals [Multiple Vitamin] 1 tab PO DAILY 07/02/21 [History] Bayard-3 Fatty Acids/Fish Oil [Fish Oil 1,000 mg Capsule] 1,000 mg PO DAILY 07/02/21 [History] Potassium Chloride 20 meq PO DAILY 07/02/21 [History] Vit A/Vit C/Vit E/Zinc/Copper [Icaps Areds Formula] 1 tab PO DAILY 07/02/21 [History] Vitamin A 1 cap PO DAILY 07/02/21 [History] Zinc 50 mg PO DAILY 07/02/21 [History] Past Medical History HEENT History: Reports: Impaired Vision Cardiovascular History: Reports: Afib (Chronic atrial fibrillation. He is on Eliquis 5 mg twice daily), Hypertension Respiratory History: Reports: Asthma, Sleep Apnea, Other (See Below) Other Respiratory History: wears CPAP at bedtime. He is not on home oxygen therapy although he is chronically dyspneic. 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 Genitourinary History: Reports: Chronic Renal Insuffiency, Other (See Below) Other Genitourinary History: prostate cancer Musculoskeletal History: Reports: RA Endocrine/Metabolic History: Reports: Obesity/BMI 30+ Oncologic (Cancer) History: Reports: Prostate, Other (See Below) Other Oncologic History: LGL - Infectious Disease History Infectious Disease History: Reports: None - Past Surgical History GI Surgical History: Reports: Hernia Repair/Other Musculoskeletal Surgical History: Reports: Hip Replacement Social & Family History - Family History Family Medical History: No Pertinent Family History - Tobacco Use Tobacco Use Status *Q: Never Tobacco User Second Hand Smoke Exposure: No - Caffeine Use Caffeine Use: Reports: Coffee, Soda Other Caffeine Use: Daily - Recreational Drug Use Recreational Drug Use: No - Living Situation & Occupation Living situation: Reports: , with Spouse (In their own home) Occupation: Retired H&P Review of Systems - Review of Systems: Review Of Systems: See Below General: Reports: Chills, Weakness, Fatigue HEENT: Reports: No Symptoms Pulmonary: Reports: No Symptoms Cardiovascular: Reports: No Symptoms Gastrointestinal: Reports: No Symptoms Genitourinary: Reports: No Symptoms Musculoskeletal: Reports: Leg Pain, Joint Pain Skin: Reports: Wound Psychiatric: Reports: No Symptoms Neurological: Reports: No Symptoms Hematologic/Lymphatic: Reports: No Symptoms Immunologic: Reports: No Symptoms Exam - Exam Exam: See Below - Vital Signs Vital Signs: Last Vital Signs Temp 37.6 C 07/02/21 14:41 Pulse 86 07/02/21 14:41 Resp 20 07/02/21 14:41 BP 137/91 H 07/02/21 14:41 Pulse Ox 97 07/02/21 14:41 - Exam General: Alert, Oriented, Cooperative HEENT: Conjunctiva Clear, EACs Clear, EOMI, Pupils Equal, Pupils Reactive Neck: Supple, Trachea Midline, Full Range of Motion. No: JVD Lungs: Normal Respiratory Effort, Decreased Breath Sounds Cardiovascular: Irregular Rhythm GI/Abdominal Exam: Normal Bowel Sounds, Soft, Non-Tender, No Organomegaly, Distended (Due to obesity) (Male) Exam: Scrotal Swelling Extremities: Pedal Edema, Other (multiple full-thickness ulcerations from ankles to knees bilaterally. Bases covered by purulent secretion. There is a gangrenous patch measuring 14 x 12 cm mid lateral left leg. Wound smells strongly of anaerobic infection the wounds appear relatively clean. ) Skin: Other (mentioned above) Neurological: Cranial Nerves Intact, Reflexes Equal Bilateral, Strength Equal Bilateral, Normal Speech, Normal Tone, Sensation Intact Neuro Extensive - Mental Status: Alert, Oriented x3, Normal Mood/Affect Neuro Extensive - Motor, Sensory, Reflexes: CN II-XII Intact, Normal Gait, Normal Reflexes Psychiatric: Alert, Normal Affect, Normal Mood - Patient Data Lab Results Last 24 hrs: Laboratory Results - last 24 hr 07/02/21 07/02/21 07/02/21 Range/Units 14:54 15:15 15:15 WBC 7.64 (4.23-9.07) K/mm3 RBC 3.32 L (4.63-6.08) M/mm3 Hgb 10.0 L (13.7-17.5) gm/dl Hct 32.8 L (40.1-51.0) % MCV 98.8 H (79.0-92.2) fl MCH 30.1 (25.7-32.2) pg MCHC 30.5 L (32.2-35.5) g/dl RDW Std Deviation 56.3 H (35.1-43.9) fL Plt Count 234 (163-337) K/mm3 MPV 10.1 (9.4-12.3) fl Neutrophils % (Manual) 92 H (40-60) % Band Neutrophils % 0 (0-10) % Lymphocytes % (Manual) 4 L (20-40) % Atypical Lymphs % 0 % Monocytes % (Manual) 4 (2-10) % Eosinophils % (Manual) 0 L (0.8-7.0) % Basophils % (Manual) 0 L (0.2-1.2) Platelet Estimate Adequate Plt Morphology Comment Normal Hypochromasia 2+ moderate Tear Drop Cells 2+ moderate RBC Morph Comment Abnormal ESR (0-15) mm/hr PT 11.3 D (9.7-12.0) SECONDS INR 1.02 APTT 26.8 (21.7-31.4) SECONDS Sodium (136-145) mEq/L Potassium (3.5-5.1) mEq/L Chloride (98-107) mEq/L Carbon Dioxide (21-32) mEq/L Anion Gap (5-15) BUN (7-18) mg/dL Creatinine (0.7-1.3) mg/dL Est Cr Clr Drug Dosing Estimated GFR (MDRD) (>60) mL/min BUN/Creatinine Ratio (14-18) Glucose (70-99) mg/dL Lactic Acid (0.4-2.0) mmol/L Calcium (8.5-10.1) mg/dL Magnesium (1.8-2.4) mg/dL Total Bilirubin (0.2-1.0) mg/dL AST (15-37) U/L ALT (16-63) U/L Alkaline Phosphatase (46-116) U/L Troponin I (0.00-0.056) ng/mL C-Reactive Protein (<1.0) mg/dL NT-Pro-B Natriuret Pep (0-450) pg/mL Total Protein (6.4-8.2) g/dl Albumin (3.4-5.0) g/dl Globulin gm/dL Albumin/Globulin Ratio (1-2) Urine Color Yellow (Yellow) Urine Appearance Clear (Clear) Urine pH 7.0 (5.0-8.0) Ur Specific [place] 1.015 (1.005-1.030) Urine Protein Trace H (Negative) Urine Glucose (UA) Negative (Negative) Urine Ketones Negative (Negative) Urine Occult Blood Negative (Negative) Urine Nitrite Negative (Negative) Urine Bilirubin Negative (Negative) Urine Urobilinogen 0.2 (0.2-1.0) Ur Leukocyte Esterase Negative (Negative) Urine RBC 0-5 (0-5) /hpf Urine WBC 0-5 (0-5) /hpf Ur Epithelial Cells 0-5 (0-5) /hpf Urine Bacteria Not seen (FEW) /hpf Urine Mucus Not seen (FEW) /hpf 07/02/21 07/02/21 07/02/21 Range/Units 15:15 15:15 15:15 WBC (4.23-9.07) K/mm3 RBC (4.63-6.08) M/mm3 Hgb (13.7-17.5) gm/dl Hct (40.1-51.0) % MCV (79.0-92.2) fl MCH (25.7-32.2) pg MCHC (32.2-35.5) g/dl RDW Std Deviation (35.1-43.9) fL Plt Count (163-337) K/mm3 MPV (9.4-12.3) fl Neutrophils % (Manual) (40-60) % Band Neutrophils % (0-10) % Lymphocytes % (Manual) (20-40) % Atypical Lymphs % % Monocytes % (Manual) (2-10) % Eosinophils % (Manual) (0.8-7.0) % Basophils % (Manual) (0.2-1.2) Platelet Estimate Plt Morphology Comment Hypochromasia Tear Drop Cells RBC Morph Comment ESR 92 H (0-15) mm/hr PT (9.7-12.0) SECONDS INR APTT (21.7-31.4) SECONDS Sodium 135 L (136-145) mEq/L Potassium 3.9 (3.5-5.1) mEq/L Chloride 97 L (98-107) mEq/L Carbon Dioxide 31 (21-32) mEq/L Anion Gap 10.9 (5-15) BUN 43 H (7-18) mg/dL Creatinine 2.1 H (0.7-1.3) mg/dL Est Cr Clr Drug Dosing TNP Estimated GFR (MDRD) 31 (>60) mL/min BUN/Creatinine Ratio 20.5 H (14-18) Glucose 179 H (70-99) mg/dL Lactic Acid 2.7 H* (0.4-2.0) mmol/L Calcium 9.1 (8.5-10.1) mg/dL Magnesium 1.9 (1.8-2.4) mg/dL Total Bilirubin 0.5 (0.2-1.0) mg/dL AST 25 (15-37) U/L ALT 41 (16-63) U/L Alkaline Phosphatase 46 (46-116) U/L Troponin I 0.063 H* (0.00-0.056) ng/mL C-Reactive Protein 6.9 H* (<1.0) mg/dL NT-Pro-B Natriuret Pep (0-450) pg/mL Total Protein 7.1 (6.4-8.2) g/dl Albumin 2.6 L (3.4-5.0) g/dl Globulin 4.5 gm/dL Albumin/Globulin Ratio 0.6 L (1-2) Urine Color (Yellow) Urine Appearance (Clear) Urine pH (5.0-8.0) Ur Specific [place] (1.005-1.030) Urine Protein (Negative) Urine Glucose (UA) (Negative) Urine Ketones (Negative) Urine Occult Blood (Negative) Urine Nitrite (Negative) Urine Bilirubin (Negative) Urine Urobilinogen (0.2-1.0) Ur Leukocyte Esterase (Negative) Urine RBC (0-5) /hpf Urine WBC (0-5) /hpf Ur Epithelial Cells (0-5) /hpf Urine Bacteria (FEW) /hpf Urine Mucus (FEW) /hpf 07/02/21 07/02/21 Range/Units 15:15 17:07 WBC (4.23-9.07) K/mm3 RBC (4.63-6.08) M/mm3 Hgb (13.7-17.5) gm/dl Hct (40.1-51.0) % MCV (79.0-92.2) fl MCH (25.7-32.2) pg MCHC (32.2-35.5) g/dl RDW Std Deviation (35.1-43.9) fL Plt Count (163-337) K/mm3 MPV (9.4-12.3) fl Neutrophils % (Manual) (40-60) % Band Neutrophils % (0-10) % Lymphocytes % (Manual) (20-40) % Atypical Lymphs % % Monocytes % (Manual) (2-10) % Eosinophils % (Manual) (0.8-7.0) % Basophils % (Manual) (0.2-1.2) Platelet Estimate Plt Morphology Comment Hypochromasia Tear Drop Cells RBC Morph Comment ESR (0-15) mm/hr PT (9.7-12.0) SECONDS INR APTT (21.7-31.4) SECONDS Sodium (136-145) mEq/L Potassium (3.5-5.1) mEq/L Chloride (98-107) mEq/L Carbon Dioxide (21-32) mEq/L Anion Gap (5-15) BUN (7-18) mg/dL Creatinine (0.7-1.3) mg/dL Est Cr Clr Drug Dosing Estimated GFR (MDRD) (>60) mL/min BUN/Creatinine Ratio (14-18) Glucose (70-99) mg/dL Lactic Acid 2.1 H* (0.4-2.0) mmol/L Calcium (8.5-10.1) mg/dL Magnesium (1.8-2.4) mg/dL Total Bilirubin (0.2-1.0) mg/dL AST (15-37) U/L ALT (16-63) U/L Alkaline Phosphatase (46-116) U/L Troponin I (0.00-0.056) ng/mL C-Reactive Protein (<1.0) mg/dL NT-Pro-B Natriuret Pep 36828 H (0-450) pg/mL Total Protein (6.4-8.2) g/dl Albumin (3.4-5.0) g/dl Globulin gm/dL Albumin/Globulin Ratio (1-2) Urine Color (Yellow) Urine Appearance (Clear) Urine pH (5.0-8.0) Ur Specific [place] (1.005-1.030) Urine Protein (Negative) Urine Glucose (UA) (Negative) Urine Ketones (Negative) Urine Occult Blood (Negative) Urine Nitrite (Negative) Urine Bilirubin (Negative) Urine Urobilinogen (0.2-1.0) Ur Leukocyte Esterase (Negative) Urine RBC (0-5) /hpf Urine WBC (0-5) /hpf Ur Epithelial Cells (0-5) /hpf Urine Bacteria (FEW) /hpf Urine Mucus (FEW) /hpf Result Diagrams: 07/02/21 15:15 07/02/21 15:15 Sepsis Event Note - Evaluation Sepsis Screening Result: No Definite Risk - Focused Exam Vital Signs: Vital Signs Temp Pulse Resp BP Pulse Ox 07/02/21 14:41 37.6 C 86 20 137/91 H 97 Problem List Initiated/Reviewed/Updated: Yes Orders Last 24hrs: Active Orders 24 hr Category Date Time Status Patient Status [ADT] Routine ADT 07/02/21 18:05 Active Bedrest Bedside Commode [RC] ASDIRECTED Care 07/02/21 19:33 Ordered Blood Glucose Check, Bedside [RC] ONETIME Care 07/02/21 14:53 Active Cardiac Monitoring [RC] CONTINUOUS Care 07/02/21 19:34 Ordered Intake and Output [RC] QSHIFT Care 07/02/21 19:34 Ordered Oxygen Therapy [RC] PRN Care 07/02/21 19:33 Ordered RT Aerosol Therapy [RC] ASDIRECTED Care 07/02/21 19:36 Ordered RT Post Treatment Assessment [RC] Click to Edit Care 07/02/21 19:52 Ordered RT Pre-Treatment Assessment [RC] Click to Edit Care 07/02/21 19:52 Ordered VTE/DVT Education [RC] PER UNIT ROUTINE Care 07/02/21 19:33 Ordered Vital Signs [RC] Q4H Care 07/02/21 19:33 Ordered OT Evaluation and Treatment [CONS] Routine Cons 07/02/21 19:33 Ordered PT Evaluation and Treatment [CONS] Routine Cons 07/02/21 19:33 Ordered Regular Diet [DIET] Diet 07/02/21 Dinner Ordered Echo 2D wo Cont [US] Routine Exams 07/02/21 19:46 Ordered VL Duplex Lwr Ext Art Ltd Lt [US] Routine Exams 07/02/21 19:40 Ordered VL Duplex Lwr Ext Art Ltd Rt [US] Routine Exams 07/02/21 19:40 Ordered VL Duplex Lwr Ext Veins Ltd Lt [US] Routine Exams 07/02/21 19:41 Ordered VL Duplex Lwr Ext Veins Ltd Rt [US] Routine Exams 07/02/21 19:41 Ordered BLOOD CULTURE [MREF] Stat Lab 07/02/21 15:15 Received BLOOD CULTURE [MREF] Stat Lab 07/02/21 15:22 Received CBC WITH AUTO DIFF [HEME] DAILY Lab 07/03/21 05:00 Ordered CBC WITH AUTO DIFF [HEME] DAILY Lab 07/04/21 05:00 Ordered CBC WITH AUTO DIFF [HEME] DAILY Lab 07/05/21 05:00 Ordered CBC WITH AUTO DIFF [HEME] DAILY Lab 07/06/21 05:00 Ordered CBC WITH AUTO DIFF [HEME] DAILY Lab 07/07/21 05:00 Ordered COMPREHENSIVE METABOLIC PN,CMP [CHEM] DAILY Lab 07/03/21 05:00 Ordered COMPREHENSIVE METABOLIC PN,CMP [CHEM] DAILY Lab 07/04/21 05:00 Ordered COMPREHENSIVE METABOLIC PN,CMP [CHEM] DAILY Lab 07/05/21 05:00 Ordered COMPREHENSIVE METABOLIC PN,CMP [CHEM] DAILY Lab 07/06/21 05:00 Ordered COMPREHENSIVE METABOLIC PN,CMP [CHEM] DAILY Lab 07/07/21 05:00 Ordered LACTIC ACID [CHEM] Routine Lab 07/03/21 05:00 Ordered MAGNESIUM [CHEM] DAILY Lab 07/03/21 05:00 Ordered PHOSPHORUS [CHEM] DAILY Lab 07/03/21 05:00 Ordered REFLEX LACTIC ACID YES OR NO [CHEM] Routine Lab 07/02/21 18:32 Received TROPONIN I [CHEM] Routine Lab 07/03/21 05:00 Ordered Acetaminophen [TylenoL] Med 07/02/21 19:33 Ordered 650 mg PO Q6H PRN Albuterol [Proventil HFA] Med 07/02/21 21:00 Ordered 2 puff INH QID Albuterol/Ipratropium [DuoNeb 3.0-0.5 MG/3 ML] Med 07/02/21 19:33 Ordered 3 ml NEB Q4H PRN Apixaban [Eliquis] Med 07/02/21 21:00 Ordered 5 mg PO BID Clindamycin Phosphate in D5W [Cleocin in D5W 900 MG/50 Med 07/02/21 19:45 Ordered ML] 900 mg Premix Bag 1 bag IV Q8H Docusate Sodium [Colace] Med 07/03/21 09:00 Ordered 100 mg PO DAILY Folic Acid Med 07/03/21 09:00 Ordered 1 mg PO DAILY Gabapentin [Neurontin] Med 07/02/21 21:00 Ordered 300 mg PO QID HYDROmorphone [Dilaudid] Med 07/02/21 19:33 Ordered 0.5 mg IVPUSH Q4H PRN Hydrocodone/Acetaminophen Med 07/02/21 19:46 Ordered 1 - 2 each PO Q6H PRN Metoprolol Succinate Med 07/02/21 21:00 Ordered 100 mg PO BID Multivitamin with Minerals [Multiple Vitamin] Med 07/03/21 09:00 Ordered 1 tab PO DAILY Promethazine [Phenergan] 6.25 mg Med 07/02/21 19:33 Ordered Sodium Chloride 0.9% [Normal Saline] 50 ml IV Q6H Sodium Chloride 0.9% [Normal Saline] 1,000 ml Med 07/02/21 15:00 Active IV ASDIRECTED Vit A/Vit C/Vit E/Zinc/Copper [Icaps Areds Formula] Med 07/03/21 09:00 Ordered 1 tab PO DAILY Zinc [Zinc] Med 07/03/21 09:00 Ordered 50 mg PO DAILY calcitrioL [Rocaltrol] Med 07/05/21 19:46 Ordered 0.25 mcg PO MOFR cefTRIAXone [Rocephin] 2 gm Med 07/02/21 19:45 Ordered Sodium Chloride 0.9% [Normal Saline AdvBag] 100 ml IV Q24H predniSONE Med 07/02/21 20:00 Ordered 20 mg PO DAILY Blood Culture x2 Reflex Set [OM.PC] Stat Oth 07/02/21 14:54 Ordered Resuscitation Status Routine Resus Stat 07/02/21 19:33 Ordered Medication Orders Acetaminophen (Acetaminophen 325 Mg Tab) 650 mg PO Q6H PRN PRN Reason: Pain (Mild 1-3)/fever Albuterol (Albuterol 6.7 Gm Inhaler) gm INH QID ROSALINDA Albuterol/Ipratropium (Albuterol/Ipratropium 3.0-0.5 Mg/3 Ml Neb Soln) 3 ml NEB Q4H PRN PRN Reason: Shortness Of Breath/wheezing Apixaban (Apixaban 5 Mg Tab) 5 mg PO BID [facility] Calcitriol (Calcitriol 0.25 Mcg Cap) 0.25 mcg PO MOFR [facility] Docusate Sodium (Docusate Sodium 100 Mg Cap) 100 mg PO DAILY [facility] Folic Acid (Folic Acid 1 Mg Tab) 1 mg PO DAILY [facility] Gabapentin (Gabapentin 300 Mg Cap) 300 mg PO QID [facility] Hydromorphone HCl (Hydromorphone 0.5 Mg/0.5 Ml Syringe) 0.5 mg IVPUSH Q4H PRN PRN Reason: Pain (severe 7-10) Sodium Chloride (Normal Saline) 1,000 mls @ 75 mls/hr IV ASDIRECTED [facility] Promethazine HCl 6.25 mg/ (Sodium Chloride) 50.25 mls @ 100 mls/hr IV Q6H PRN PRN Reason: Nausea/Vomiting Ceftriaxone Sodium 2 gm/ (Sodium Chloride) 100 mls @ 200 mls/hr IV Q24H ROSALINDA Clindamycin Phosphate 900 mg/ (Premix) 50 mls @ 100 mls/hr IV Q8H [facility] Non-Formulary Medication (Hydrocodone/Acetaminophen) 1 - 2 each PO Q6H PRN PRN Reason: Pain (moderate 4-6) Non-Formulary Medication (Metoprolol Succinate) 100 mg PO BID [facility] Non-Formulary Medication (Multivitamin With Minerals [Multiple Vitamin]) 1 tab PO DAILY [facility] Non-Formulary Medication (Vit A/Vit C/Vit E/Zinc/Copper [Icaps Areds Formula]) 1 tab PO DAILY [facility] Non-Formulary Medication (Zinc [Zinc]) 50 mg PO DAILY [facility] Prednisone (Prednisone 20 Mg Tab) 20 mg PO DAILY [facility] Assessment/Plan Comment:: Patient is a 80-year-old male with a history of atrial fibrillation on Eliquis, CHF, sleep apnea on CPAP, chronic rheumatoid arthritis on long-term prednisone and CKD who was brought to the ER due to ulcerations of both legs. 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 Has been on doxycycline 100 mg twice daily for 5 days would culture wound care with topical antibiotics Ceftriaxone and clindamycin Chronic atrial fibrillation Pacemaker in place Rate is controlled Continue metoprolol 100 mg twice daily Continue home Eliquis 5 mg twice daily Acute on chronic CHF Unknown type BNP 13,466 Troponin mildly elevated CXR - moderate cardiomegaly Bumetanide 1-2 mg bid and metolazone 5mg Q48hrs are on hold. Continue metoprolol 100mg bid Echocardiogram Intake and output prolonged QT interval Avoid medication which prolonged QT Sleep Apnea, not on home oxygen Continue home CPAP at bedtime Chronic rheumatoid arthritis Prednisone 20mg daily has been on prednisone for many years (30 to 40 yards per patient) and is steroid-dependent CKD, stage III Avoid nephrotoxic meds Repeat renal function in morning Elevation of troponin 0.063 in the ER The elevation could result from CKD, CHF, or infection EKG no ST elevation Repeat troponin Self care deficit difficulty walking PT OT DVT prophylaxis: Eliquis CODE STATUS: Full Disposition: ER physician fax patient's chart to [facility] in [place]. Hopefully they can accept this patient. - Mortality Measure Prognosis:: Poor
[2021-07-02] MEDS ORDERED: Albuterol 6.7 GM Inhaler INH SCH (21:00)
[2021-07-02] MEDS ORDERED: Gabapentin 300 MG Cap PO SCH (21:00)
[2021-07-02] MEDS: Acetaminophen/HYDROcodone 325-5 MG Tab PO PRN (22:16)
[2021-07-02] MEDS: Apixaban 5 MG Tab PO SCH (23:35)
[2021-07-02] MEDS: Metoprolol Succinate 50 MG Tab.ER PO SCH (23:35)
[2021-07-02] MEDS: cefTRIAXone 2 GM in Sodium Chloride 0.9% 100 ML IV SCH (23:36)
[2021-07-02] MEDS: HYDROmorphone 0.5 MG/0.5 ML Syringe IVPUSH PRN (23:45)
[2021-07-03] MEDS: Sodium Chloride 0.9% 1,000 ML IV SCH ×2 (04:26→17:44)
[2021-07-03] MEDS: Clindamycin Phosphate in D5W 900 MG in Premix Bag 1 BAG IV SCH ×6 (04:40→17:44)
[2021-07-03] MEDS: Acetaminophen/HYDROcodone 325-5 MG Tab PO PRN ×3 (04:41→16:43)
--- NOTE | 2021-07-03 05:40 | US ---
Bilateral lower extremity arterial ultrasound: Duplex and color Doppler evaluation was obtained of the right and left lower extremity arteries. Comparison: No prior arterial imaging is available. Peroneal veins were not well visualized on both sides. Findings: Right common femoral artery: No occlusion or significant stenosis Right superficial femoral artery: No occlusion or significant stenosis Right popliteal artery: No occlusion or significant stenosis Right posterior tibial and dorsalis pedis: No occlusion or significant stenosis Left common femoral artery: No occlusion or significant stenosis Left superficial femoral artery: No occlusion or significant stenosis Left popliteal artery: No occlusion or significant stenosis Left posterior tibial and dorsalis pedis: No occlusion or significant stenosis Dampened waveforms are noted on the left side worse than right side. Please correlate with LAURO values. Impression: 1. LAURO values are recommended. No definite stenosis or occlusion is seen. 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
--- NOTE | 2021-07-03 05:48 | US ---
Bilateral lower extremity deep venous ultrasound: Duplex and color Doppler evaluation was obtained of the right and left common femoral, proximal greater saphenous, superficial femoral, popliteal, posterior tibial and peroneal veins. Comparison: No prior lower extremity venous imaging is available. Limitations: Peroneal veins were not well seen on either side. Findings: Normal phasic flow, augmentation and compression are seen. Impression: 1. Both peroneal veins not well seen. 2. No findings of deep venous thrombosis is otherwise seen within the right or left lower extremity. Diagnostic code #2 I agree with preliminary report from 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
[2021-07-03] MEDS: predniSONE 20 MG Tab PO SCH (06:37)
[2021-07-03] MEDS ORDERED: Multivitamins with Iron/Calcium/Folic Acid/Minerals Tab PO SCH (09:00)
[2021-07-03] MEDS ORDERED: Potassium Chloride 20 MEQ Tab.ER PO SCH (09:00)
[2021-07-03] MEDS ORDERED: Albuterol 6.7 GM Inhaler INH SCH (10:00)
[2021-07-03] MEDS: Potassium Chloride 20 MEQ Tab.ER PO SCH ×2 (10:01→15:46)
[2021-07-03] MEDS: Folic Acid 1 MG Tab PO SCH (10:01)
[2021-07-03] MEDS: Zinc Sulfate 220 MG Cap PO SCH (10:01)
[2021-07-03] MEDS: Docusate Sodium 100 MG Cap PO SCH (10:01)
[2021-07-03] MEDS: Apixaban 5 MG Tab PO SCH ×2 (10:01→20:21)
[2021-07-03] MEDS: Multivitamins with Minerals/Folic Acid/Lutein/Zeaxanth Tab PO SCH (10:01)
--- NOTE | 2021-07-03 10:32 | PCM.CONS ---
H&P History of Present Illness - General Date of Service: 07/03/21 Admit Problem/Dx: Admission Diagnosis/Problem Admission Diagnosis/Problem Arterial insufficiency of lower extremity Source of Information: Patient History Limitations: Reports: No Limitations - History of Present Illness Initial Comments - Free Text/Narative: Mr. Vergara is a known patient, 80 yo man with chronic painful leg ulcers related to severe lower extremity edema stemming from heart failure. He is in chronic poor health with obesity, sleep apnea, congestive heart failure, atrial fibrillation and rheumatoid arthritis. The wounds on his legs have become increasingly more painful and have not improved with the wound care regimen in place since this past summer. Bilateral Lower Leg Pain Score (Numeric/FACES): 9 - Related Data Allergies/Adverse Reactions: Allergies Allergy/AdvReac Type Severity Reaction Status Date / Time No Known Allergies Allergy Verified 07/02/21 19:24 Home Medications: Home Meds calcitrioL [Calcitriol] 0.25 mcg PO MOFR 03/11/21 [History] Apixaban [Eliquis] 5 mg PO BID 06/28/21 [History] Bumetanide 3 mg PO BID 06/28/21 [History] Doxycycline [Vibra-Tabs] 100 mg PO Q12HR #20 tab 06/28/21 [Rx] Hydrocodone/Acetaminophen [Hydrocodone-Acetamin 5-325 mg] 1 - 2 each PO Q6H PRN #15 tablet 06/28/21 [Rx] Metoprolol Succinate [Toprol XL 100mg] 100 mg PO BID 06/28/21 [History] metOLazone [Metolazone] 5 mg PO Q48H 06/28/21 [History] oxyCODONE 5 mg PO Q6H PRN 06/28/21 [History] predniSONE [Prednisone] 20 mg PO DAILY 06/28/21 [History] Acetaminophen [Acetaminophen Extra Strength] 2 tab PO TID PRN 07/02/21 [History] Ascorbic Acid [Vitamin C] 250 mg PO DAILY 07/02/21 [History] Docusate Sodium [Colace] 100 mg PO DAILY 07/02/21 [History] Folic Acid 1 mg PO DAILY 07/02/21 [History] Multivitamin with Minerals [Multiple Vitamin] 1 tab PO DAILY 07/02/21 [History] Peerless-3 Fatty Acids/Fish Oil [Fish Oil 1,000 mg Capsule] 1,000 mg PO DAILY 07/02/21 [History] Potassium Chloride 20 meq PO DAILY 07/02/21 [History] Vit A/Vit C/Vit E/Zinc/Copper [Icaps Areds Formula] 1 tab PO DAILY 07/02/21 [History] Vitamin A 1 cap PO DAILY 07/02/21 [History] Zinc 50 mg PO DAILY 07/02/21 [History] Past Medical History HEENT History: Reports: Cataract, Hard of Hearing, Impaired Vision, Macular Degeneration Cardiovascular History: Reports: Afib, Heart Failure, Hypertension, Pacemaker Respiratory History: Reports: Asthma, Sleep Apnea, SOB, Other (See Below) Other Respiratory History: wears CPAP at bedtime. He is not on home oxygen therapy although he is chronically dyspneic. 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 Gastrointestinal History: Reports: None Genitourinary History: Reports: Chronic Renal Insuffiency, Other (See Below) Other Genitourinary History: prostate cancer Musculoskeletal History: Reports: Gout, RA Endocrine/Metabolic History: Reports: Obesity/BMI 30+, Vitamin D Deficiency Hematologic History: Reports: Anemia, Anticoagulation Therapy, Folic Acid, Iron Deficiency Other Hematologic History: Eliquis Oncologic (Cancer) History: Reports: Leukemia, Prostate, Other (See Below) Other Oncologic History: LGL Dermatologic History: Reports: Cellulitis - Infectious Disease History Infectious Disease History: Reports: Influenza - Past Surgical History HEENT Surgical History: Reports: Cataract Surgery Cardiovascular Surgical History: Reports: Pacer Respiratory Surgical History: Reports: None GI Surgical History: Reports: Hernia, Abdominal, Hernia Repair/Other Male Surgical History: Reports: None Endocrine Surgical History: Reports: None Musculoskeletal Surgical History: Reports: Hip Replacement Oncologic Surgical History: Reports: None Dermatological Surgical History: Reports: Skin Biopsy Social & Family History - Family History Family Medical History: No Pertinent Family History - Tobacco Use Tobacco Use Status *Q: Former Tobacco User Years of Tobacco use: 20 Used Tobacco, but Quit: Yes Month/Year Tobacco Last Used: 1983 Second Hand Smoke Exposure: No - Caffeine Use Caffeine Use: Reports: Coffee Other Caffeine Use: 1 cup per day - Recreational Drug Use Recreational Drug Use: No - Living Situation & Occupation Living situation: Reports: , with Spouse (In their own home) Occupation: Retired H&P Review of Systems - Review of Systems: Review Of Systems: See Below General: Reports: Malaise, Weakness, Fatigue HEENT: Reports: No Symptoms Pulmonary: Reports: Shortness of Breath Cardiovascular: Reports: Dyspnea on Exertion, Orthopnea, Edema Gastrointestinal: Reports: No Symptoms Genitourinary: Reports: No Symptoms Musculoskeletal: Reports: Joint Pain Skin: Reports: Wound Psychiatric: Reports: No Symptoms Neurological: Reports: No Symptoms Hematologic/Lymphatic: Reports: Easy Bleeding Immunologic: Reports: No Symptoms Exam - Exam Exam: See Below - Vital Signs Vital Signs: Last Vital Signs Temp 36.6 C 07/03/21 06:39 Pulse 83 07/03/21 06:39 Resp 20 07/03/21 06:39 BP 128/90 07/03/21 06:39 Pulse Ox 97 07/03/21 06:39 Weight: 102.24 kg - Exam General: Alert, Oriented, Cooperative HEENT: Conjunctiva Clear Neck: Full Range of Motion Lungs: Decreased Breath Sounds Cardiovascular: Regular Rate Extremities: Other (nonpitting dependent edema with large ulcers on bilateral legs, malodorous. Some areas with healthy granulation tissue and scant fibrinopurulent exudate, other areas with mushy necrotic eschar) Neuro Extensive - Mental Status: Normal Mood/Affect - Patient Data Lab Results Last 24 hrs: Laboratory Results - last 24 hr 07/02/21 07/02/21 07/02/21 Range/Units 14:54 15:15 15:15 WBC 7.64 (4.23-9.07) K/mm3 RBC 3.32 L (4.63-6.08) M/mm3 Hgb 10.0 L (13.7-17.5) gm/dl Hct 32.8 L (40.1-51.0) % MCV 98.8 H (79.0-92.2) fl MCH 30.1 (25.7-32.2) pg MCHC 30.5 L (32.2-35.5) g/dl RDW Std Deviation 56.3 H (35.1-43.9) fL Plt Count 234 (163-337) K/mm3 MPV 10.1 (9.4-12.3) fl Neut % (Auto) (34.0-67.9) % Lymph % (Auto) (21.8-53.1) % [place] % (Auto) (5.3-12.2) % Eos % (Auto) (0.8-7.0) Baso % (Auto) (0.1-1.2) % Neut # (Auto) (1.78-5.38) K/mm3 Lymph # (Auto) (1.32-3.57) K/mm3 [place] # (Auto) (0.30-0.82) K/mm3 Eos # (Auto) (0.04-0.54) K/mm3 Baso # (Auto) (0.01-0.08) K/mm3 Neutrophils % (Manual) 92 H (40-60) % Band Neutrophils % 0 (0-10) % Lymphocytes % (Manual) 4 L (20-40) % Atypical Lymphs % 0 % Monocytes % (Manual) 4 (2-10) % Eosinophils % (Manual) 0 L (0.8-7.0) % Basophils % (Manual) 0 L (0.2-1.2) Platelet Estimate Adequate Plt Morphology Comment Normal Hypochromasia 2+ moderate Tear Drop Cells 2+ moderate RBC Morph Comment Abnormal ESR (0-15) mm/hr PT 11.3 D (9.7-12.0) SECONDS INR 1.02 APTT 26.8 (21.7-31.4) SECONDS Sodium (136-145) mEq/L Potassium (3.5-5.1) mEq/L Chloride (98-107) mEq/L Carbon Dioxide (21-32) mEq/L Anion Gap (5-15) BUN (7-18) mg/dL Creatinine (0.7-1.3) mg/dL Est Cr Clr Drug Dosing Estimated GFR (MDRD) (>60) mL/min BUN/Creatinine Ratio (14-18) Glucose (70-99) mg/dL Lactic Acid (0.4-2.0) mmol/L Calcium (8.5-10.1) mg/dL Phosphorus (2.6-4.7) mg/dL Magnesium (1.8-2.4) mg/dL Total Bilirubin (0.2-1.0) mg/dL AST (15-37) U/L ALT (16-63) U/L Alkaline Phosphatase (46-116) U/L Troponin I (0.00-0.056) ng/mL C-Reactive Protein (<1.0) mg/dL NT-Pro-B Natriuret Pep (0-450) pg/mL Total Protein (6.4-8.2) g/dl Albumin (3.4-5.0) g/dl Globulin gm/dL Albumin/Globulin Ratio (1-2) Urine Color Yellow (Yellow) Urine Appearance Clear (Clear) Urine pH 7.0 (5.0-8.0) Ur Specific [place] 1.015 (1.005-1.030) Urine Protein Trace H (Negative) Urine Glucose (UA) Negative (Negative) Urine Ketones Negative (Negative) Urine Occult Blood Negative (Negative) Urine Nitrite Negative (Negative) Urine Bilirubin Negative (Negative) Urine Urobilinogen 0.2 (0.2-1.0) Ur Leukocyte Esterase Negative (Negative) Urine RBC 0-5 (0-5) /hpf Urine WBC 0-5 (0-5) /hpf Ur Epithelial Cells 0-5 (0-5) /hpf Urine Bacteria Not seen (FEW) /hpf Urine Mucus Not seen (FEW) /hpf 07/02/21 07/02/21 07/02/21 Range/Units 15:15 15:15 15:15 WBC (4.23-9.07) K/mm3 RBC (4.63-6.08) M/mm3 Hgb (13.7-17.5) gm/dl Hct (40.1-51.0) % MCV (79.0-92.2) fl MCH (25.7-32.2) pg MCHC (32.2-35.5) g/dl RDW Std Deviation (35.1-43.9) fL Plt Count (163-337) K/mm3 MPV (9.4-12.3) fl Neut % (Auto) (34.0-67.9) % Lymph % (Auto) (21.8-53.1) % [place] % (Auto) (5.3-12.2) % Eos % (Auto) (0.8-7.0) Baso % (Auto) (0.1-1.2) % Neut # (Auto) (1.78-5.38) K/mm3 Lymph # (Auto) (1.32-3.57) K/mm3 [place] # (Auto) (0.30-0.82) K/mm3 Eos # (Auto) (0.04-0.54) K/mm3 Baso # (Auto) (0.01-0.08) K/mm3 Neutrophils % (Manual) (40-60) % Band Neutrophils % (0-10) % Lymphocytes % (Manual) (20-40) % Atypical Lymphs % % Monocytes % (Manual) (2-10) % Eosinophils % (Manual) (0.8-7.0) % Basophils % (Manual) (0.2-1.2) Platelet Estimate Plt Morphology Comment Hypochromasia Tear Drop Cells RBC Morph Comment ESR 92 H (0-15) mm/hr PT (9.7-12.0) SECONDS INR APTT (21.7-31.4) SECONDS Sodium 135 L (136-145) mEq/L Potassium 3.9 (3.5-5.1) mEq/L Chloride 97 L (98-107) mEq/L Carbon Dioxide 31 (21-32) mEq/L Anion Gap 10.9 (5-15) BUN 43 H (7-18) mg/dL Creatinine 2.1 H (0.7-1.3) mg/dL Est Cr Clr Drug Dosing TNP Estimated GFR (MDRD) 31 (>60) mL/min BUN/Creatinine Ratio 20.5 H (14-18) Glucose 179 H (70-99) mg/dL Lactic Acid 2.7 H* (0.4-2.0) mmol/L Calcium 9.1 (8.5-10.1) mg/dL Phosphorus (2.6-4.7) mg/dL Magnesium 1.9 (1.8-2.4) mg/dL Total Bilirubin 0.5 (0.2-1.0) mg/dL AST 25 (15-37) U/L ALT 41 (16-63) U/L Alkaline Phosphatase 46 (46-116) U/L Troponin I 0.063 H* (0.00-0.056) ng/mL C-Reactive Protein 6.9 H* (<1.0) mg/dL NT-Pro-B Natriuret Pep (0-450) pg/mL Total Protein 7.1 (6.4-8.2) g/dl Albumin 2.6 L (3.4-5.0) g/dl Globulin 4.5 gm/dL Albumin/Globulin Ratio 0.6 L (1-2) Urine Color (Yellow) Urine Appearance (Clear) Urine pH (5.0-8.0) Ur Specific [place] (1.005-1.030) Urine Protein (Negative) Urine Glucose (UA) (Negative) Urine Ketones (Negative) Urine Occult Blood (Negative) Urine Nitrite (Negative) Urine Bilirubin (Negative) Urine Urobilinogen (0.2-1.0) Ur Leukocyte Esterase (Negative) Urine RBC (0-5) /hpf Urine WBC (0-5) /hpf Ur Epithelial Cells (0-5) /hpf Urine Bacteria (FEW) /hpf Urine Mucus (FEW) /hpf 07/02/21 07/02/21 07/02/21 Range/Units 15:15 17:07 21:52 WBC (4.23-9.07) K/mm3 RBC (4.63-6.08) M/mm3 Hgb (13.7-17.5) gm/dl Hct (40.1-51.0) % MCV (79.0-92.2) fl MCH (25.7-32.2) pg MCHC (32.2-35.5) g/dl RDW Std Deviation (35.1-43.9) fL Plt Count (163-337) K/mm3 MPV (9.4-12.3) fl Neut % (Auto) (34.0-67.9) % Lymph % (Auto) (21.8-53.1) % [place] % (Auto) (5.3-12.2) % Eos % (Auto) (0.8-7.0) Baso % (Auto) (0.1-1.2) % Neut # (Auto) (1.78-5.38) K/mm3 Lymph # (Auto) (1.32-3.57) K/mm3 [place] # (Auto) (0.30-0.82) K/mm3 Eos # (Auto) (0.04-0.54) K/mm3 Baso # (Auto) (0.01-0.08) K/mm3 Neutrophils % (Manual) (40-60) % Band Neutrophils % (0-10) % Lymphocytes % (Manual) (20-40) % Atypical Lymphs % % Monocytes % (Manual) (2-10) % Eosinophils % (Manual) (0.8-7.0) % Basophils % (Manual) (0.2-1.2) Platelet Estimate Plt Morphology Comment Hypochromasia Tear Drop Cells RBC Morph Comment ESR (0-15) mm/hr PT (9.7-12.0) SECONDS INR APTT (21.7-31.4) SECONDS Sodium (136-145) mEq/L Potassium (3.5-5.1) mEq/L Chloride (98-107) mEq/L Carbon Dioxide (21-32) mEq/L Anion Gap (5-15) BUN (7-18) mg/dL Creatinine (0.7-1.3) mg/dL Est Cr Clr Drug Dosing Estimated GFR (MDRD) (>60) mL/min BUN/Creatinine Ratio (14-18) Glucose (70-99) mg/dL Lactic Acid 2.1 H* 1.5 (0.4-2.0) mmol/L Calcium (8.5-10.1) mg/dL Phosphorus (2.6-4.7) mg/dL Magnesium (1.8-2.4) mg/dL Total Bilirubin (0.2-1.0) mg/dL AST (15-37) U/L ALT (16-63) U/L Alkaline Phosphatase (46-116) U/L Troponin I (0.00-0.056) ng/mL C-Reactive Protein (<1.0) mg/dL NT-Pro-B Natriuret Pep 37762 H (0-450) pg/mL Total Protein (6.4-8.2) g/dl Albumin (3.4-5.0) g/dl Globulin gm/dL Albumin/Globulin Ratio (1-2) Urine Color (Yellow) Urine Appearance (Clear) Urine pH (5.0-8.0) Ur Specific [place] (1.005-1.030) Urine Protein (Negative) Urine Glucose (UA) (Negative) Urine Ketones (Negative) Urine Occult Blood (Negative) Urine Nitrite (Negative) Urine Bilirubin (Negative) Urine Urobilinogen (0.2-1.0) Ur Leukocyte Esterase (Negative) Urine RBC (0-5) /hpf Urine WBC (0-5) /hpf Ur Epithelial Cells (0-5) /hpf Urine Bacteria (FEW) /hpf Urine Mucus (FEW) /hpf 07/03/21 07/03/21 07/03/21 Range/Units 07:27 07:27 07:27 WBC 7.61 (4.23-9.07) K/mm3 RBC 3.36 L (4.63-6.08) M/mm3 Hgb 10.0 L (13.7-17.5) gm/dl Hct 33.5 L (40.1-51.0) % MCV 99.7 H (79.0-92.2) fl MCH 29.8 (25.7-32.2) pg MCHC 29.9 L (32.2-35.5) g/dl RDW Std Deviation 57.8 H (35.1-43.9) fL Plt Count 231 (163-337) K/mm3 MPV 10.2 (9.4-12.3) fl Neut % (Auto) 74.2 H (34.0-67.9) % Lymph % (Auto) 10.6 L (21.8-53.1) % [place] % (Auto) 8.9 (5.3-12.2) % Eos % (Auto) 2.0 (0.8-7.0) Baso % (Auto) 0.4 (0.1-1.2) % Neut # (Auto) 5.64 H (1.78-5.38) K/mm3 Lymph # (Auto) 0.81 L (1.32-3.57) K/mm3 [place] # (Auto) 0.68 (0.30-0.82) K/mm3 Eos # (Auto) 0.15 (0.04-0.54) K/mm3 Baso # (Auto) 0.03 (0.01-0.08) K/mm3 Neutrophils % (Manual) (40-60) % Band Neutrophils % (0-10) % Lymphocytes % (Manual) (20-40) % Atypical Lymphs % % Monocytes % (Manual) (2-10) % Eosinophils % (Manual) (0.8-7.0) % Basophils % (Manual) (0.2-1.2) Platelet Estimate Plt Morphology Comment Hypochromasia Tear Drop Cells RBC Morph Comment ESR (0-15) mm/hr PT (9.7-12.0) SECONDS INR APTT (21.7-31.4) SECONDS Sodium 143 (136-145) mEq/L Potassium 3.2 L (3.5-5.1) mEq/L Chloride 102 (98-107) mEq/L Carbon Dioxide 31 (21-32) mEq/L Anion Gap 13.2 (5-15) BUN 40 H (7-18) mg/dL Creatinine 2.1 H (0.7-1.3) mg/dL Est Cr Clr Drug Dosing 26.16 Estimated GFR (MDRD) 31 (>60) mL/min BUN/Creatinine Ratio 19.0 H (14-18) Glucose 83 (70-99) mg/dL Lactic Acid 1.2 (0.4-2.0) mmol/L Calcium 8.5 (8.5-10.1) mg/dL Phosphorus 4.0 (2.6-4.7) mg/dL Magnesium 1.8 (1.8-2.4) mg/dL Total Bilirubin 0.4 (0.2-1.0) mg/dL AST 18 (15-37) U/L ALT 35 (16-63) U/L Alkaline Phosphatase 47 (46-116) U/L Troponin I 0.104 H* (0.00-0.056) ng/mL C-Reactive Protein (<1.0) mg/dL NT-Pro-B Natriuret Pep (0-450) pg/mL Total Protein 6.6 (6.4-8.2) g/dl Albumin 2.6 L (3.4-5.0) g/dl Globulin 4.0 gm/dL Albumin/Globulin Ratio 0.7 L (1-2) Urine Color (Yellow) Urine Appearance (Clear) Urine pH (5.0-8.0) Ur Specific [place] (1.005-1.030) Urine Protein (Negative) Urine Glucose (UA) (Negative) Urine Ketones (Negative) Urine Occult Blood (Negative) Urine Nitrite (Negative) Urine Bilirubin (Negative) Urine Urobilinogen (0.2-1.0) Ur Leukocyte Esterase (Negative) Urine RBC (0-5) /hpf Urine WBC (0-5) /hpf Ur Epithelial Cells (0-5) /hpf Urine Bacteria (FEW) /hpf Urine Mucus (FEW) /hpf Result Diagrams: 07/03/21 07:27 07/03/21 07:27 Sepsis Event Note - Evaluation Sepsis Screening Result: Possible Sepsis Risk - Focused Exam Vital Signs: Vital Signs Temp Pulse Resp BP Pulse Ox 07/03/21 06:39 36.6 C 83 20 128/90 97 07/03/21 04:24 36.4 C 77 20 126/107 H 97 07/02/21 23:35 84 133/89 07/02/21 23:34 36.4 C 84 16 133/89 94 L Consult PN Assessment/Plan Procedures: Procedures ASSAY OF LACTIC ACID (06/28/21) ASSAY OF PSA TOTAL (03/21/15) BLOOD CULTURE FOR BACTERIA (06/28/21) C-REACTIVE PROTEIN (06/28/21) COMPLETE CBC W/AUTO DIFF WBC (06/28/21) COMPREHEN METABOLIC PANEL (06/28/21) CT ABD & PELVIS W/O CONTRAST (04/07/17) CT LUMBAR SPINE W/O DYE (03/15/21) DNA/RNA AMPLIFIED PROBE (06/28/21) ELECTROCARDIOGRAM TRACING (03/05/18) EMERGENCY DEPT VISIT (03/15/21) EMERGENCY DEPT VISIT (03/11/21) EMERGENCY DEPT VISIT (03/05/18) EMERGENCY DEPT VISIT (04/07/17) HYDRATE IV INFUSION ADD-ON (04/07/17) HYDRATION IV INFUSION INIT (03/05/18) MEASURE BLOOD OXYGEN LEVEL (04/01/21) OCCULT BLOOD FECES (03/05/18) PROTHROMBIN TIME (03/15/21) RBC SED RATE AUTOMATED (03/15/21) ROUTINE VENIPUNCTURE (06/28/21) THER/PROPH/DIAG INJ IV PUSH (12/10/20) THER/PROPH/DIAG IV INF INIT (03/15/21) TX/PRO/DX INJ NEW DRUG ADDON (03/15/21) TX/PRO/DX INJ SAME DRUG ENGINEERING LEADER (03/15/21) UPPER EXTREMITY STUDY (10/08/17) URINALYSIS AUTO W/SCOPE (03/15/21) Problem List Initiated/Reviewed/Updated: Yes Plan: Severe chronic debility stemming in large part from uncompensated heart failure with lower extremity edema and ulceration. Patient has been unable to apply measures of compression and elevation due to pain and restricted positioning. Pain is improved since admission and initiation of antibiotics. Some wound debridement is needed, though patient will not tolerate this at bedside due to pain and risk of bleeding; he is on eliquis for atrial fibrillation. His records were faxed to [facility] wound care facility in [place]; acceptance and transfer are pending. If he is still at our facility tomorrow, we will plan for operative debridement with sedation. To help with infection, Dakins soaked gauze wraps may be helpful if patient can tolerate. Plan for NPO after midnight in preparation for debridement. Requesting Provider: Dr. Raines Date Consult Requested: 07/03/21 Reason for Consult: leg wounds Patient History Reviewed: Yes Admission H&P Reviewed: Yes Notified Requestor: Yes Time Spent (in minutes): 30
[2021-07-03] MEDS: Metoprolol Succinate 50 MG Tab.ER PO SCH ×2 (10:51→20:21)
[2021-07-03] MEDS: Multivitamin Tab PO SCH (15:46)
--- NOTE | 2021-07-03 16:24 | PCM.PN ---
- General Info Date of Service: 07/03/21 Admission Dx/Problem (Free Text): Admission Diagnosis/Problem Admission Diagnosis/Problem Arterial insufficiency of lower extremity Subjective Update: Patient is a 80-year-old male with a history of atrial fibrillation on Eliquis, CHF, sleep apnea on CPAP, chronic rheumatoid arthritis on long-term prednisone and CKD who was brought to the ER due to worsening pain from ulcerations of both legs. Pt does not have new complaints. Denies fever, chills, nausea, vomiting, or diarrhea. Afebrile He is on room air with good oxygen saturation General surgeon Dr. Oliveros saw patient today and would do I&D tomorrow for him [facility] would not accept him until surgical treatment is completed. - Review of Systems Systems Review Comment:: General: Reports: Chills, Weakness, Fatigue HEENT: Reports: No Symptoms Pulmonary: Reports: No Symptoms Cardiovascular: Reports: No Symptoms Gastrointestinal: Reports: No Symptoms Genitourinary: Reports: No Symptoms Musculoskeletal: Reports: Leg Pain, Joint Pain Skin: Reports: Wound Psychiatric: Reports: No Symptoms Neurological: Reports: No Symptoms Hematologic/Lymphatic: Reports: No Symptoms Immunologic: Reports: No Symptoms - Patient Data Vitals - Most Recent: Last Vital Signs Temp 36.3 C 07/03/21 13:04 Pulse 75 07/03/21 13:04 Resp 18 07/03/21 13:04 BP 106/75 07/03/21 13:04 Pulse Ox 96 07/03/21 13:04 Weight - Most Recent: 102.058 kg I&O - Last 24 Hours: Intake & Output 07/03/21 07/03/21 07/03/21 06:59 14:59 22:59 Intake Total 803 380 Output Total 100 Balance 703 380 Lab Results Last 24 Hours: Laboratory Results - last 24 hr 07/02/21 07/02/21 07/02/21 Range/Units 14:54 15:15 15:15 WBC (4.23-9.07) K/mm3 RBC (4.63-6.08) M/mm3 Hgb (13.7-17.5) gm/dl Hct (40.1-51.0) % MCV (79.0-92.2) fl MCH (25.7-32.2) pg MCHC (32.2-35.5) g/dl RDW Std Deviation (35.1-43.9) fL Plt Count (163-337) K/mm3 MPV (9.4-12.3) fl Neut % (Auto) (34.0-67.9) % Lymph % (Auto) (21.8-53.1) % [place] % (Auto) (5.3-12.2) % Eos % (Auto) (0.8-7.0) Baso % (Auto) (0.1-1.2) % Neut # (Auto) (1.78-5.38) K/mm3 Lymph # (Auto) (1.32-3.57) K/mm3 [place] # (Auto) (0.30-0.82) K/mm3 Eos # (Auto) (0.04-0.54) K/mm3 Baso # (Auto) (0.01-0.08) K/mm3 Manual Slide Review ESR (0-15) mm/hr Sodium 135 L (136-145) mEq/L Potassium 3.9 (3.5-5.1) mEq/L Chloride 97 L (98-107) mEq/L Carbon Dioxide 31 (21-32) mEq/L Anion Gap 10.9 (5-15) BUN 43 H (7-18) mg/dL Creatinine 2.1 H (0.7-1.3) mg/dL Est Cr Clr Drug Dosing TNP Estimated GFR (MDRD) 31 (>60) mL/min BUN/Creatinine Ratio 20.5 H (14-18) Glucose 179 H (70-99) mg/dL Lactic Acid 2.7 H* (0.4-2.0) mmol/L Calcium 9.1 (8.5-10.1) mg/dL Phosphorus (2.6-4.7) mg/dL Magnesium 1.9 (1.8-2.4) mg/dL Total Bilirubin 0.5 (0.2-1.0) mg/dL AST 25 (15-37) U/L ALT 41 (16-63) U/L Alkaline Phosphatase 46 (46-116) U/L Troponin I 0.063 H* (0.00-0.056) ng/mL C-Reactive Protein 6.9 H* (<1.0) mg/dL NT-Pro-B Natriuret Pep (0-450) pg/mL Total Protein 7.1 (6.4-8.2) g/dl Albumin 2.6 L (3.4-5.0) g/dl Globulin 4.5 gm/dL Albumin/Globulin Ratio 0.6 L (1-2) Urine Color Yellow (Yellow) Urine Appearance Clear (Clear) Urine pH 7.0 (5.0-8.0) Ur Specific [place] 1.015 (1.005-1.030) Urine Protein Trace H (Negative) Urine Glucose (UA) Negative (Negative) Urine Ketones Negative (Negative) Urine Occult Blood Negative (Negative) Urine Nitrite Negative (Negative) Urine Bilirubin Negative (Negative) Urine Urobilinogen 0.2 (0.2-1.0) Ur Leukocyte Esterase Negative (Negative) Urine RBC 0-5 (0-5) /hpf Urine WBC 0-5 (0-5) /hpf Ur Epithelial Cells 0-5 (0-5) /hpf Urine Bacteria Not seen (FEW) /hpf Urine Mucus Not seen (FEW) /hpf SARS-CoV-2 RNA (CHASTITY) (NEGATIVE) 07/02/21 07/02/21 07/02/21 Range/Units 15:15 15:15 17:07 WBC (4.23-9.07) K/mm3 RBC (4.63-6.08) M/mm3 Hgb (13.7-17.5) gm/dl Hct (40.1-51.0) % MCV (79.0-92.2) fl MCH (25.7-32.2) pg MCHC (32.2-35.5) g/dl RDW Std Deviation (35.1-43.9) fL Plt Count (163-337) K/mm3 MPV (9.4-12.3) fl Neut % (Auto) (34.0-67.9) % Lymph % (Auto) (21.8-53.1) % [place] % (Auto) (5.3-12.2) % Eos % (Auto) (0.8-7.0) Baso % (Auto) (0.1-1.2) % Neut # (Auto) (1.78-5.38) K/mm3 Lymph # (Auto) (1.32-3.57) K/mm3 [place] # (Auto) (0.30-0.82) K/mm3 Eos # (Auto) (0.04-0.54) K/mm3 Baso # (Auto) (0.01-0.08) K/mm3 Manual Slide Review ESR 92 H (0-15) mm/hr Sodium (136-145) mEq/L Potassium (3.5-5.1) mEq/L Chloride (98-107) mEq/L Carbon Dioxide (21-32) mEq/L Anion Gap (5-15) BUN (7-18) mg/dL Creatinine (0.7-1.3) mg/dL Est Cr Clr Drug Dosing Estimated GFR (MDRD) (>60) mL/min BUN/Creatinine Ratio (14-18) Glucose (70-99) mg/dL Lactic Acid 2.1 H* (0.4-2.0) mmol/L Calcium (8.5-10.1) mg/dL Phosphorus (2.6-4.7) mg/dL Magnesium (1.8-2.4) mg/dL Total Bilirubin (0.2-1.0) mg/dL AST (15-37) U/L ALT (16-63) U/L Alkaline Phosphatase (46-116) U/L Troponin I (0.00-0.056) ng/mL C-Reactive Protein (<1.0) mg/dL NT-Pro-B Natriuret Pep 23486 H (0-450) pg/mL Total Protein (6.4-8.2) g/dl Albumin (3.4-5.0) g/dl Globulin gm/dL Albumin/Globulin Ratio (1-2) Urine Color (Yellow) Urine Appearance (Clear) Urine pH (5.0-8.0) Ur Specific [place] (1.005-1.030) Urine Protein (Negative) Urine Glucose (UA) (Negative) Urine Ketones (Negative) Urine Occult Blood (Negative) Urine Nitrite (Negative) Urine Bilirubin (Negative) Urine Urobilinogen (0.2-1.0) Ur Leukocyte Esterase (Negative) Urine RBC (0-5) /hpf Urine WBC (0-5) /hpf Ur Epithelial Cells (0-5) /hpf Urine Bacteria (FEW) /hpf Urine Mucus (FEW) /hpf SARS-CoV-2 RNA (CHASTITY) (NEGATIVE) 07/02/21 07/03/21 07/03/21 Range/Units 21:52 07:27 07:27 WBC 7.61 (4.23-9.07) K/mm3 RBC 3.36 L (4.63-6.08) M/mm3 Hgb 10.0 L (13.7-17.5) gm/dl Hct 33.5 L (40.1-51.0) % MCV 99.7 H (79.0-92.2) fl MCH 29.8 (25.7-32.2) pg MCHC 29.9 L (32.2-35.5) g/dl RDW Std Deviation 57.8 H (35.1-43.9) fL Plt Count 231 (163-337) K/mm3 MPV 10.2 (9.4-12.3) fl Neut % (Auto) 74.2 H (34.0-67.9) % Lymph % (Auto) 10.6 L (21.8-53.1) % [place] % (Auto) 8.9 (5.3-12.2) % Eos % (Auto) 2.0 (0.8-7.0) Baso % (Auto) 0.4 (0.1-1.2) % Neut # (Auto) 5.64 H (1.78-5.38) K/mm3 Lymph # (Auto) 0.81 L (1.32-3.57) K/mm3 [place] # (Auto) 0.68 (0.30-0.82) K/mm3 Eos # (Auto) 0.15 (0.04-0.54) K/mm3 Baso # (Auto) 0.03 (0.01-0.08) K/mm3 Manual Slide Review Abnormal smear ESR (0-15) mm/hr Sodium 143 (136-145) mEq/L Potassium 3.2 L (3.5-5.1) mEq/L Chloride 102 (98-107) mEq/L Carbon Dioxide 31 (21-32) mEq/L Anion Gap 13.2 (5-15) BUN 40 H (7-18) mg/dL Creatinine 2.1 H (0.7-1.3) mg/dL Est Cr Clr Drug Dosing 26.16 Estimated GFR (MDRD) 31 (>60) mL/min BUN/Creatinine Ratio 19.0 H (14-18) Glucose 83 (70-99) mg/dL Lactic Acid 1.5 (0.4-2.0) mmol/L Calcium 8.5 (8.5-10.1) mg/dL Phosphorus 4.0 (2.6-4.7) mg/dL Magnesium 1.8 (1.8-2.4) mg/dL Total Bilirubin 0.4 (0.2-1.0) mg/dL AST 18 (15-37) U/L ALT 35 (16-63) U/L Alkaline Phosphatase 47 (46-116) U/L Troponin I 0.104 H* (0.00-0.056) ng/mL C-Reactive Protein (<1.0) mg/dL NT-Pro-B Natriuret Pep (0-450) pg/mL Total Protein 6.6 (6.4-8.2) g/dl Albumin 2.6 L (3.4-5.0) g/dl Globulin 4.0 gm/dL Albumin/Globulin Ratio 0.7 L (1-2) Urine Color (Yellow) Urine Appearance (Clear) Urine pH (5.0-8.0) Ur Specific [place] (1.005-1.030) Urine Protein (Negative) Urine Glucose (UA) (Negative) Urine Ketones (Negative) Urine Occult Blood (Negative) Urine Nitrite (Negative) Urine Bilirubin (Negative) Urine Urobilinogen (0.2-1.0) Ur Leukocyte Esterase (Negative) Urine RBC (0-5) /hpf Urine WBC (0-5) /hpf Ur Epithelial Cells (0-5) /hpf Urine Bacteria (FEW) /hpf Urine Mucus (FEW) /hpf SARS-CoV-2 RNA (CHASTITY) (NEGATIVE) 07/03/21 07/03/21 07/03/21 Range/Units 07:27 11:23 13:24 WBC (4.23-9.07) K/mm3 RBC (4.63-6.08) M/mm3 Hgb (13.7-17.5) gm/dl Hct (40.1-51.0) % MCV (79.0-92.2) fl MCH (25.7-32.2) pg MCHC (32.2-35.5) g/dl RDW Std Deviation (35.1-43.9) fL Plt Count (163-337) K/mm3 MPV (9.4-12.3) fl Neut % (Auto) (34.0-67.9) % Lymph % (Auto) (21.8-53.1) % [place] % (Auto) (5.3-12.2) % Eos % (Auto) (0.8-7.0) Baso % (Auto) (0.1-1.2) % Neut # (Auto) (1.78-5.38) K/mm3 Lymph # (Auto) (1.32-3.57) K/mm3 [place] # (Auto) (0.30-0.82) K/mm3 Eos # (Auto) (0.04-0.54) K/mm3 Baso # (Auto) (0.01-0.08) K/mm3 Manual Slide Review ESR (0-15) mm/hr Sodium (136-145) mEq/L Potassium (3.5-5.1) mEq/L Chloride (98-107) mEq/L Carbon Dioxide (21-32) mEq/L Anion Gap (5-15) BUN (7-18) mg/dL Creatinine (0.7-1.3) mg/dL Est Cr Clr Drug Dosing Estimated GFR (MDRD) (>60) mL/min BUN/Creatinine Ratio (14-18) Glucose (70-99) mg/dL Lactic Acid 1.2 (0.4-2.0) mmol/L Calcium (8.5-10.1) mg/dL Phosphorus (2.6-4.7) mg/dL Magnesium (1.8-2.4) mg/dL Total Bilirubin (0.2-1.0) mg/dL AST (15-37) U/L ALT (16-63) U/L Alkaline Phosphatase (46-116) U/L Troponin I 0.053 (0.00-0.056) ng/mL C-Reactive Protein (<1.0) mg/dL NT-Pro-B Natriuret Pep (0-450) pg/mL Total Protein (6.4-8.2) g/dl Albumin (3.4-5.0) g/dl Globulin gm/dL Albumin/Globulin Ratio (1-2) Urine Color (Yellow) Urine Appearance (Clear) Urine pH (5.0-8.0) Ur Specific [place] (1.005-1.030) Urine Protein (Negative) Urine Glucose (UA) (Negative) Urine Ketones (Negative) Urine Occult Blood (Negative) Urine Nitrite (Negative) Urine Bilirubin (Negative) Urine Urobilinogen (0.2-1.0) Ur Leukocyte Esterase (Negative) Urine RBC (0-5) /hpf Urine WBC (0-5) /hpf Ur Epithelial Cells (0-5) /hpf Urine Bacteria (FEW) /hpf Urine Mucus (FEW) /hpf SARS-CoV-2 RNA (CHASTITY) Negative (NEGATIVE) Miquel Results Last 24 Hours: Microbiology 07/02/21 22:07 Gram Stain - Final Leg, Unspecified 07/02/21 22:07 Gram Stain - Final Leg, Unspecified 07/02/21 22:07 Gram Stain - Final Leg, Right Med Orders - Current: Current Medications Acetaminophen (Acetaminophen 325 Mg Tab) 650 mg PO Q6H PRN PRN Reason: Pain (Mild 1-3)/fever Hydrocodone Bitart/Acetaminophen (Acetaminophen/Hydrocodone 325-5 Mg Tab) 1 - 2 tab PO Q6H PRN PRN Reason: Pain (moderate 4-6) Last Admin: 07/03/21 10:52 Dose: 2 tab Documented by: Albuterol/Ipratropium (Albuterol/Ipratropium 3.0-0.5 Mg/3 Ml Neb Soln) 3 ml NEB Q4H PRN PRN Reason: Shortness Of Breath/wheezing Apixaban (Apixaban 5 Mg Tab) 5 mg PO BID [facility] Last Admin: 07/03/21 10:01 Dose: 5 mg Documented by: Calcitriol (Calcitriol 0.25 Mcg Cap) 0.25 mcg PO MoFr@0900 [facility] Docusate Sodium (Docusate Sodium 100 Mg Cap) 100 mg PO DAILY [facility] Last Admin: 07/03/21 10:01 Dose: 100 mg Documented by: Folic Acid (Folic Acid 1 Mg Tab) 1 mg PO DAILY [facility] Last Admin: 07/03/21 10:01 Dose: 1 mg Documented by: Hydromorphone HCl (Hydromorphone 0.5 Mg/0.5 Ml Syringe) 0.5 mg IVPUSH Q4H PRN PRN Reason: Pain (severe 7-10) Last Admin: 07/02/21 23:45 Dose: 0.5 mg Documented by: Sodium Chloride (Normal Saline) 1,000 mls @ 75 mls/hr IV ASDIRECTED [facility] Last Admin: 07/03/21 04:26 Dose: 75 mls/hr Documented by: Promethazine HCl 6.25 mg/ (Sodium Chloride) 50.25 mls @ 100 mls/hr IV Q6H PRN PRN Reason: Nausea/Vomiting Clindamycin Phosphate 900 mg/ (Premix) 50 mls @ 100 mls/hr IV Q8H [facility] Last Admin: 07/03/21 10:01 Dose: 100 mls/hr Documented by: Ceftriaxone Sodium 2 gm/ (Sodium Chloride) 100 mls @ 200 mls/hr IV Q24H [facility] Last Admin: 07/02/21 23:36 Dose: 200 mls/hr Documented by: Metoprolol Succinate (Metoprolol Succinate 50 Mg Tab.Er) 50 mg PO BEDTIME [facility] Metoprolol Succinate (Metoprolol Succinate 50 Mg Tab.Er) 100 mg PO DAILY [facility] Multivitamins/Minerals/Vitamin C (Multivitamin Tab) 1 tab PO DAILY [facility] Last Admin: 07/03/21 15:46 Dose: 1 tab Documented by: Prednisone (Prednisone 20 Mg Tab) 20 mg PO WITHBREAKFAST [facility] Last Admin: 07/03/21 06:37 Dose: 20 mg Documented by: Vit A/Vit C/Vit E/Selen/Cu/Zn/Lutei (Multivitamins With Minerals/Folic Acid/Lutein/Zeaxanth Tab) 1 tab PO DAILY [facility] Last Admin: 07/03/21 10:01 Dose: 1 tab Documented by: Zinc Sulfate (Zinc Sulfate 220 Mg Cap) 220 mg PO DAILY [facility] Last Admin: 07/03/21 10:01 Dose: 220 mg Documented by: Discontinued Medications Albuterol (Albuterol 6.7 Gm Inhaler) 0 gm INH QID [facility] Last Admin: 07/02/21 23:03 Dose: Not Given Documented by: Bumetanide (Bumetanide 1 Mg/4 Ml Mdv) 2 mg IVPUSH ONETIME ONE Stop: 07/02/21 17:08 Last Admin: 07/02/21 18:32 Dose: 2 mg Documented by: Doxycycline Hyclate (Doxycycline 100 Mg Cap) 100 mg PO ONETIME ONE Stop: 07/02/21 17:07 Last Admin: 07/02/21 18:29 Dose: 100 mg Documented by: Gabapentin (Gabapentin 300 Mg Cap) 300 mg PO QID [facility] Last Admin: 07/02/21 23:19 Dose: Not Given Documented by: Hydromorphone HCl (Hydromorphone 1 Mg/Ml Syringe) 1 mg IVPUSH ONETIME ONE Stop: 07/02/21 15:50 Last Admin: 07/02/21 16:04 Dose: 1 mg Documented by: Clindamycin Phosphate 900 mg/ (Premix) 50 mls @ 100 mls/hr IV ONETIME ONE Stop: 07/02/21 17:35 Last Admin: 07/02/21 18:32 Dose: 100 mls/hr Documented by: Ceftriaxone Sodium 2 gm/ (Sodium Chloride) 100 mls @ 200 mls/hr IV Q24H [facility] Last Admin: 07/02/21 23:25 Dose: Not Given Documented by: Metoprolol Succinate (Metoprolol Succinate 50 Mg Tab.Er) 100 mg PO BID [facility] Last Admin: 07/03/21 10:51 Dose: 100 mg Documented by: Multivitamins/Minerals (Multivitamins With Iron/Calcium/Folic Acid/Minerals Tab) 1 each PO DAILY [facility] Last Admin: 07/03/21 15:50 Dose: Not Given Documented by: Ondansetron HCl (Ondansetron 4 Mg/2 Ml Sdv) 4 mg IVPUSH ONETIME ONE Stop: 07/02/21 15:50 Last Admin: 07/02/21 16:04 Dose: 4 mg Documented by: Oxycodone HCl (Oxycodone 5 Mg Tab) 5 mg PO Q6H PRN PRN Reason: Pain (moderate 4-6) Oxycodone/Acetaminophen (Acetaminophen/Oxycodone 325-5 Mg Tab) 2 tab PO ONETIME ONE Stop: 07/02/21 17:06 Last Admin: 07/02/21 18:29 Dose: 2 tab Documented by: Potassium Chloride (Potassium Chloride 20 Meq Tab.Er) 20 meq PO DAILY [facility] Potassium Chloride (Potassium Chloride 20 Meq Tab.Er) 20 meq PO TID [facility] Stop: 07/03/21 15:01 Last Admin: 07/03/21 15:46 Dose: 20 meq Documented by: Prednisone (Prednisone 20 Mg Tab) 20 mg PO WITHBREAKFAST [facility] Last Admin: 07/02/21 23:25 Dose: Not Given Documented by: - Exam Physical Findings Comments:: General: Alert, Oriented, Cooperative HEENT: Conjunctiva Clear, EACs Clear, EOMI, Pupils Equal, Pupils Reactive Neck: Supple, Trachea Midline, Full Range of Motion. No: JVD Lungs: Normal Respiratory Effort, Decreased Breath Sounds Cardiovascular: Irregular Rhythm GI/Abdominal Exam: Normal Bowel Sounds, Soft, Non-Tender, No Organomegaly, Distended (Due to obesity) (Male) Exam: Scrotal Swelling Extremities: Pedal Edema, Other (multiple full-thickness ulcerations from ankles to knees bilaterally. Bases covered by purulent secretion. There is a gangrenous patch measuring 14 x 12 cm mid lateral left leg. Wound smells strongly of anaerobic infection the wounds appear relatively clean. ) Skin: Other (mentioned above) Neurological: Cranial Nerves Intact, Reflexes Equal Bilateral, Strength Equal Bilateral, Normal Speech, Normal Tone, Sensation Intact Neuro Extensive - Mental Status: Alert, Oriented x3, Normal Mood/Affect Neuro Extensive - Motor, Sensory, Reflexes: CN II-XII Intact, Normal Gait, Normal Reflexes Psychiatric: Alert, Normal Affect, Normal Mood - Patient Data Lab Results Last 24 hrs: Laboratory Results - last 24 hr 07/02/21 07/02/21 07/02/21 Range/Units 14:54 15:15 15:15 WBC (4.23-9.07) K/mm3 RBC (4.63-6.08) M/mm3 Hgb (13.7-17.5) gm/dl Hct (40.1-51.0) % MCV (79.0-92.2) fl MCH (25.7-32.2) pg MCHC (32.2-35.5) g/dl RDW Std Deviation (35.1-43.9) fL Plt Count (163-337) K/mm3 MPV (9.4-12.3) fl Neut % (Auto) (34.0-67.9) % Lymph % (Auto) (21.8-53.1) % [place] % (Auto) (5.3-12.2) % Eos % (Auto) (0.8-7.0) Baso % (Auto) (0.1-1.2) % Neut # (Auto) (1.78-5.38) K/mm3 Lymph # (Auto) (1.32-3.57) K/mm3 [place] # (Auto) (0.30-0.82) K/mm3 Eos # (Auto) (0.04-0.54) K/mm3 Baso # (Auto) (0.01-0.08) K/mm3 Manual Slide Review ESR (0-15) mm/hr Sodium 135 L (136-145) mEq/L Potassium 3.9 (3.5-5.1) mEq/L Chloride 97 L (98-107) mEq/L Carbon Dioxide 31 (21-32) mEq/L Anion Gap 10.9 (5-15) BUN 43 H (7-18) mg/dL Creatinine 2.1 H (0.7-1.3) mg/dL Est Cr Clr Drug Dosing TNP Estimated GFR (MDRD) 31 (>60) mL/min BUN/Creatinine Ratio 20.5 H (14-18) Glucose 179 H (70-99) mg/dL Lactic Acid 2.7 H* (0.4-2.0) mmol/L Calcium 9.1 (8.5-10.1) mg/dL Phosphorus (2.6-4.7) mg/dL Magnesium 1.9 (1.8-2.4) mg/dL Total Bilirubin 0.5 (0.2-1.0) mg/dL AST 25 (15-37) U/L ALT 41 (16-63) U/L Alkaline Phosphatase 46 (46-116) U/L Troponin I 0.063 H* (0.00-0.056) ng/mL C-Reactive Protein 6.9 H* (<1.0) mg/dL NT-Pro-B Natriuret Pep (0-450) pg/mL Total Protein 7.1 (6.4-8.2) g/dl Albumin 2.6 L (3.4-5.0) g/dl Globulin 4.5 gm/dL Albumin/Globulin Ratio 0.6 L (1-2) Urine Color Yellow (Yellow) Urine Appearance Clear (Clear) Urine pH 7.0 (5.0-8.0) Ur Specific [place] 1.015 (1.005-1.030) Urine Protein Trace H (Negative) Urine Glucose (UA) Negative (Negative) Urine Ketones Negative (Negative) Urine Occult Blood Negative (Negative) Urine Nitrite Negative (Negative) Urine Bilirubin Negative (Negative) Urine Urobilinogen 0.2 (0.2-1.0) Ur Leukocyte Esterase Negative (Negative) Urine RBC 0-5 (0-5) /hpf Urine WBC 0-5 (0-5) /hpf Ur Epithelial Cells 0-5 (0-5) /hpf Urine Bacteria Not seen (FEW) /hpf Urine Mucus Not seen (FEW) /hpf SARS-CoV-2 RNA ([facility]AST[facility]) (NEGATIVE) 07/02/21 07/02/21 07/02/21 Range/Units 15:15 15:15 17:07 WBC (4.23-9.07) K/mm3 RBC (4.63-6.08) M/mm3 Hgb (13.7-17.5) gm/dl Hct (40.1-51.0) % MCV (79.0-92.2) fl MCH (25.7-32.2) pg MCHC (32.2-35.5) g/dl RDW Std Deviation (35.1-43.9) fL Plt Count (163-337) K/mm3 MPV (9.4-12.3) fl Neut % (Auto) (34.0-67.9) % Lymph % (Auto) (21.8-53.1) % [place] % (Auto) (5.3-12.2) % Eos % (Auto) (0.8-7.0) Baso % (Auto) (0.1-1.2) % Neut # (Auto) (1.78-5.38) K/mm3 Lymph # (Auto) (1.32-3.57) K/mm3 [place] # (Auto) (0.30-0.82) K/mm3 Eos # (Auto) (0.04-0.54) K/mm3 Baso # (Auto) (0.01-0.08) K/mm3 Manual Slide Review ESR 92 H (0-15) mm/hr Sodium (136-145) mEq/L Potassium (3.5-5.1) mEq/L Chloride (98-107) mEq/L Carbon Dioxide (21-32) mEq/L Anion Gap (5-15) BUN (7-18) mg/dL Creatinine (0.7-1.3) mg/dL Est Cr Clr Drug Dosing Estimated GFR (MDRD) (>60) mL/min BUN/Creatinine Ratio (14-18) Glucose (70-99) mg/dL Lactic Acid 2.1 H* (0.4-2.0) mmol/L Calcium (8.5-10.1) mg/dL Phosphorus (2.6-4.7) mg/dL Magnesium (1.8-2.4) mg/dL Total Bilirubin (0.2-1.0) mg/dL AST (15-37) U/L ALT (16-63) U/L Alkaline Phosphatase (46-116) U/L Troponin I (0.00-0.056) ng/mL C-Reactive Protein (<1.0) mg/dL NT-Pro-B Natriuret Pep 91460 H (0-450) pg/mL Total Protein (6.4-8.2) g/dl Albumin (3.4-5.0) g/dl Globulin gm/dL Albumin/Globulin Ratio (1-2) Urine Color (Yellow) Urine Appearance (Clear) Urine pH (5.0-8.0) Ur Specific [place] (1.005-1.030) Urine Protein (Negative) Urine Glucose (UA) (Negative) Urine Ketones (Negative) Urine Occult Blood (Negative) Urine Nitrite (Negative) Urine Bilirubin (Negative) Urine Urobilinogen (0.2-1.0) Ur Leukocyte Esterase (Negative) Urine RBC (0-5) /hpf Urine WBC (0-5) /hpf Ur Epithelial Cells (0-5) /hpf Urine Bacteria (FEW) /hpf Urine Mucus (FEW) /hpf SARS-CoV-2 RNA (CHASTITY) (NEGATIVE) 07/02/21 07/03/21 07/03/21 Range/Units 21:52 07:27 07:27 WBC 7.61 (4.23-9.07) K/mm3 RBC 3.36 L (4.63-6.08) M/mm3 Hgb 10.0 L (13.7-17.5) gm/dl Hct 33.5 L (40.1-51.0) % MCV 99.7 H (79.0-92.2) fl MCH 29.8 (25.7-32.2) pg MCHC 29.9 L (32.2-35.5) g/dl RDW Std Deviation 57.8 H (35.1-43.9) fL Plt Count 231 (163-337) K/mm3 MPV 10.2 (9.4-12.3) fl Neut % (Auto) 74.2 H (34.0-67.9) % Lymph % (Auto) 10.6 L (21.8-53.1) % [place] % (Auto) 8.9 (5.3-12.2) % Eos % (Auto) 2.0 (0.8-7.0) Baso % (Auto) 0.4 (0.1-1.2) % Neut # (Auto) 5.64 H (1.78-5.38) K/mm3 Lymph # (Auto) 0.81 L (1.32-3.57) K/mm3 [place] # (Auto) 0.68 (0.30-0.82) K/mm3 Eos # (Auto) 0.15 (0.04-0.54) K/mm3 Baso # (Auto) 0.03 (0.01-0.08) K/mm3 Manual Slide Review Abnormal smear ESR (0-15) mm/hr Sodium 143 (136-145) mEq/L Potassium 3.2 L (3.5-5.1) mEq/L Chloride 102 (98-107) mEq/L Carbon Dioxide 31 (21-32) mEq/L Anion Gap 13.2 (5-15) BUN 40 H (7-18) mg/dL Creatinine 2.1 H (0.7-1.3) mg/dL Est Cr Clr Drug Dosing 26.16 Estimated GFR (MDRD) 31 (>60) mL/min BUN/Creatinine Ratio 19.0 H (14-18) Glucose 83 (70-99) mg/dL Lactic Acid 1.5 (0.4-2.0) mmol/L Calcium 8.5 (8.5-10.1) mg/dL Phosphorus 4.0 (2.6-4.7) mg/dL Magnesium 1.8 (1.8-2.4) mg/dL Total Bilirubin 0.4 (0.2-1.0) mg/dL AST 18 (15-37) U/L ALT 35 (16-63) U/L Alkaline Phosphatase 47 (46-116) U/L Troponin I 0.104 H* (0.00-0.056) ng/mL C-Reactive Protein (<1.0) mg/dL NT-Pro-B Natriuret Pep (0-450) pg/mL Total Protein 6.6 (6.4-8.2) g/dl Albumin 2.6 L (3.4-5.0) g/dl Globulin 4.0 gm/dL Albumin/Globulin Ratio 0.7 L (1-2) Urine Color (Yellow) Urine Appearance (Clear) Urine pH (5.0-8.0) Ur Specific [place] (1.005-1.030) Urine Protein (Negative) Urine Glucose (UA) (Negative) Urine Ketones (Negative) Urine Occult Blood (Negative) Urine Nitrite (Negative) Urine Bilirubin (Negative) Urine Urobilinogen (0.2-1.0) Ur Leukocyte Esterase (Negative) Urine RBC (0-5) /hpf Urine WBC (0-5) /hpf Ur Epithelial Cells (0-5) /hpf Urine Bacteria (FEW) /hpf Urine Mucus (FEW) /hpf SARS-CoV-2 RNA (CHASTITY) (NEGATIVE) 07/03/21 07/03/21 07/03/21 Range/Units 07:27 11:23 13:24 WBC (4.23-9.07) K/mm3 RBC (4.63-6.08) M/mm3 Hgb (13.7-17.5) gm/dl Hct (40.1-51.0) % MCV (79.0-92.2) fl MCH (25.7-32.2) pg MCHC (32.2-35.5) g/dl RDW Std Deviation (35.1-43.9) fL Plt Count (163-337) K/mm3 MPV (9.4-12.3) fl Neut % (Auto) (34.0-67.9) % Lymph % (Auto) (21.8-53.1) % [place] % (Auto) (5.3-12.2) % Eos % (Auto) (0.8-7.0) Baso % (Auto) (0.1-1.2) % Neut # (Auto) (1.78-5.38) K/mm3 Lymph # (Auto) (1.32-3.57) K/mm3 [place] # (Auto) (0.30-0.82) K/mm3 Eos # (Auto) (0.04-0.54) K/mm3 Baso # (Auto) (0.01-0.08) K/mm3 Manual Slide Review ESR (0-15) mm/hr Sodium (136-145) mEq/L Potassium (3.5-5.1) mEq/L Chloride (98-107) mEq/L Carbon Dioxide (21-32) mEq/L Anion Gap (5-15) BUN (7-18) mg/dL Creatinine (0.7-1.3) mg/dL Est Cr Clr Drug Dosing Estimated GFR (MDRD) (>60) mL/min BUN/Creatinine Ratio (14-18) Glucose (70-99) mg/dL Lactic Acid 1.2 (0.4-2.0) mmol/L Calcium (8.5-10.1) mg/dL Phosphorus (2.6-4.7) mg/dL Magnesium (1.8-2.4) mg/dL Total Bilirubin (0.2-1.0) mg/dL AST (15-37) U/L ALT (16-63) U/L Alkaline Phosphatase (46-116) U/L Troponin I 0.053 (0.00-0.056) ng/mL C-Reactive Protein (<1.0) mg/dL NT-Pro-B Natriuret Pep (0-450) pg/mL Total Protein (6.4-8.2) g/dl Albumin (3.4-5.0) g/dl Globulin gm/dL Albumin/Globulin Ratio (1-2) Urine Color (Yellow) Urine Appearance (Clear) Urine pH (5.0-8.0) Ur Specific [place] (1.005-1.030) Urine Protein (Negative) Urine Glucose (UA) (Negative) Urine Ketones (Negative) Urine Occult Blood (Negative) Urine Nitrite (Negative) Urine Bilirubin (Negative) Urine Urobilinogen (0.2-1.0) Ur Leukocyte Esterase (Negative) Urine RBC (0-5) /hpf Urine WBC (0-5) /hpf Ur Epithelial Cells (0-5) /hpf Urine Bacteria (FEW) /hpf Urine Mucus (FEW) /hpf SARS-CoV-2 RNA (CHASTITY) Negative (NEGATIVE) Result Diagrams: 07/03/21 07:27 07/03/21 07:27 Miquel Results Last 24 hrs: Microbiology 07/02/21 22:07 Gram Stain - Final Leg, Unspecified 07/02/21 22:07 Gram Stain - Final Leg, Unspecified 07/02/21 22:07 Gram Stain - Final Leg, Right Sepsis Event Note - Evaluation Sepsis Screening Result: Possible Sepsis Risk - Focused Exam Vital Signs: Vital Signs Temp Pulse Resp BP Pulse Ox 07/03/21 13:04 36.3 C 75 18 106/75 96 07/03/21 12:30 36.2 C 73 18 100/81 95 07/03/21 10:51 73 112/77 07/03/21 09:56 36.6 C 73 20 112/77 98 07/03/21 06:39 36.6 C 83 20 128/90 97 07/03/21 04:24 36.4 C 77 20 126/107 H 97 - Problem List Review Problem List Initiated/Reviewed/Updated: Yes - My Orders Last 24 Hours: My Active Orders 07/02/21 19:33 Bedrest Bedside Commode [RC] BID Oxygen Therapy [RC] PRN VTE/DVT Education [RC] DAILY Vital Signs [RC] Q4HR OT Evaluation and Treatment [CONS] Routine PT Evaluation and Treatment [CONS] Routine Acetaminophen [TylenoL] 650 mg PO Q6H PRN Albuterol/Ipratropium [DuoNeb 3.0-0.5 MG/3 ML] 3 ml NEB Q4H PRN HYDROmorphone [Dilaudid] 0.5 mg IVPUSH Q4H PRN Promethazine [Phenergan] 6.25 mg Sodium Chloride 0.9% [Normal Saline] 50 ml IV Q6H 07/02/21 19:34 Cardiac Monitoring [RC] CONTINUOUS Intake and Output [RC] 04,16 07/02/21 19:36 RT Aerosol Therapy [RC] ASDIRECTED 07/02/21 19:46 Acetaminophen/HYDROcodone [Aptos 325-5 MG] 1 - 2 tab PO Q6H PRN 07/02/21 21:00 Apixaban [Eliquis] 5 mg PO BID 07/02/21 22:07 CULTURE, ANAEROBE & AEROBE [MREF] Urgent CULTURE, ANAEROBE & AEROBE [MREF] Urgent CULTURE, ANAEROBE & AEROBE [MREF] Urgent 07/02/21 23:00 cefTRIAXone [Rocephin] 2 gm Sodium Chloride 0.9% [Normal Saline AdvBag] 100 ml IV Q24H 07/02/21 23:04 CPAP Adult [RT BiPAP/CPAP] [RC] ASDIRECTED 07/03/21 02:00 Clindamycin Phosphate in D5W [Cleocin in D5W 900 MG/50 ML] 900 mg Premix Bag 1 bag IV Q8H 07/03/21 02:06 Consult to Physical Therapy [PT Evaluation and Treatment] [CONS] Routine 07/03/21 02:13 Resuscitation Status Routine 07/03/21 07:00 predniSONE 20 mg PO WITHBREAKFAST 07/03/21 08:30 Consult to Physician [CONS] Routine 07/03/21 09:00 Docusate Sodium [Colace] 100 mg PO DAILY Folic Acid 1 mg PO DAILY Multivitamins/Min/FA/Lut/Zeax [ICaps MV] 1 tab PO DAILY Zinc Sulfate [Zincate] 220 mg PO DAILY 07/03/21 11:36 Notify Provider Consults [RC] ASDIRECTED 07/03/21 15:45 Multivitamins [Tab-A-Ema] 1 tab PO DAILY 07/03/21 Dinner Regular Diet [DIET] 07/03/21 21:00 Metoprolol Succinate [Toprol XL] 50 mg PO BEDTIME 07/04/21 05:00 CBC WITH AUTO DIFF [HEME] DAILY COMPREHENSIVE METABOLIC PN,CMP [CHEM] DAILY 07/04/21 09:00 Metoprolol Succinate [Toprol XL] 100 mg PO DAILY 07/05/21 05:00 CBC WITH AUTO DIFF [HEME] DAILY COMPREHENSIVE METABOLIC PN,CMP [CHEM] DAILY 07/05/21 09:00 calcitrioL [Rocaltrol] 0.25 mcg PO MoFr@0900 07/06/21 05:00 CBC WITH AUTO DIFF [HEME] DAILY COMPREHENSIVE METABOLIC PN,CMP [CHEM] DAILY 07/07/21 05:00 CBC WITH AUTO DIFF [HEME] DAILY COMPREHENSIVE METABOLIC PN,CMP [CHEM] DAILY - Plan Plan:: Patient is a 80-year-old male with a history of atrial fibrillation on Eliquis, CHF, sleep apnea on CPAP, chronic rheumatoid arthritis on long-term prednisone and CKD who was brought to the ER due to ulcerations of both legs. 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 LAURO values are recommended. No definitive stenoses or occlusion is seen. Blood culture from 06/27 showed positive staphylococcus epidermidis which is likely a contaminant. Has been on doxycycline 100 mg twice daily for 5 days Blood culture would culture wound care with topical antibiotics Ceftriaxone and clindamycin surgical consulted. Dr. Oliveros will perform I&D for him tomorrow Chronic atrial fibrillation Pacemaker in place Rate is controlled Continue metoprolol 100 mg twice daily Continue home Eliquis 5 mg twice daily Acute on chronic CHF Unknown type BNP 13,466 Troponin mildly elevated CXR - moderate cardiomegaly Bumetanide 1-2 mg bid and metolazone 5mg Q48hrs are on hold. Continue metoprolol 100mg bid Lasix 20mg iv bid Echocardiogram Intake and output prolonged QT interval Avoid medication which prolonged QT Sleep Apnea, not on home oxygen Continue home CPAP at bedtime Chronic rheumatoid arthritis Prednisone 20mg daily has been on prednisone for many years (30 to 40 yards per patient) and is steroi d-dependent CKD, stage III Avoid nephrotoxic meds Repeat renal function in morning Elevation of troponin 0.063 in the ER The elevation could result from CKD, CHF, or infection EKG no ST elevation Repeat troponin 0.053 Self care deficit difficulty walking PT OT DVT prophylaxis: Eliquis CODE STATUS: Full Disposition: ER physician fax patient's chart to [facility] in [place]. [facility] would not accept him until surgical treatment is completed.
[2021-07-03] MEDS ORDERED: Furosemide 20 MG/2 ML VIAL IVPUSH SCH (16:30)
[2021-07-03] MEDS: Furosemide 20 MG/2 ML VIAL IVPUSH SCH (16:44)
[2021-07-03] MEDS: cefTRIAXone 2 GM in Sodium Chloride 0.9% 100 ML IV SCH (22:59)
[2021-07-04] MEDS: Acetaminophen/HYDROcodone 325-5 MG Tab PO PRN ×2 (00:17→21:33)
[2021-07-04] MEDS: Clindamycin Phosphate in D5W 900 MG in Premix Bag 1 BAG IV SCH ×4 (01:35→09:10)
[2021-07-04] MEDS: HYDROmorphone 0.5 MG/0.5 ML Syringe IVPUSH PRN ×4 (04:39→17:48)
[2021-07-04] MEDS: predniSONE 20 MG Tab PO SCH (06:32)
[2021-07-04] MEDS: Furosemide 20 MG/2 ML VIAL IVPUSH SCH (06:33)
--- NOTE | 2021-07-04 06:57 | PCM.PREANE ---
Preanesthetic Assessment - Procedure Proposed Procedure: Wound Debridement of Lower Extremities - Anesthesia/Transfusion/Family Hx Anesthesia History: Prior Anesthesia Without Reaction Family History of Anesthesia Reaction: No Transfusion History: No Prior Transfusion(s) Intubation History: Unknown - Review of Systems General: No Symptoms (obesity), Weakness, Fatigue, Malaise Pulmonary: No Symptoms (quit smoking 1983, NICK on CPAP/orthopnea) Cardiovascular: No Symptoms (Afib on eliquis, CHF on lasix, HTN), Dyspnea on Exertion, Orthopnea, Edema Gastrointestinal: No Symptoms, Constipation, Decreased Appetite Neurological: No Symptoms, Numbness (bilateral toes/), Tingling (minimal in the hands) Other: Reports: None (rheumatoid arthritis on prednisone, chronic renal insufficiency, History of prostate CA, LGL), Easy Bleeding, Easy Bruising - Physical Assessment NPO Status Date: 07/03/21 NPO Status Time: 18:00 Vital Signs: Last Vital Signs Temp 36.7 C 07/04/21 04:15 Pulse 81 07/04/21 04:15 Resp 16 07/04/21 04:15 BP 139/91 H 07/04/21 04:15 Pulse Ox 98 07/04/21 04:15 Height: 1.68 m Weight: 109.724 kg ASA Class: 3 Mental Status: Alert & Oriented x3 Airway Class: Mallampati = 3 Dentition: Reports: Normal Dentition, Caries Thyro-Mental Finger Breadths: 2 Mouth Opening Finger Breadths: 3 ROM/Head Extension: Other (cushinoid appearance with hunch back and round face noted: limited neck extension.) Lungs: Clear to Auscultation, Normal Respiratory Effort Cardiovascular: Regular Rate, No Murmurs, Irregular Rhythm - Lab Values: Laboratory Last Values WBC 8.57 K/mm3 (4.23-9.07) 07/04/21 05:45 RBC 3.44 M/mm3 (4.63-6.08) L 07/04/21 05:45 Hgb 10.2 gm/dl (13.7-17.5) L 07/04/21 05:45 Hct 34.3 % (40.1-51.0) L 07/04/21 05:45 MCV 99.7 fl (79.0-92.2) H 07/04/21 05:45 MCH 29.7 pg (25.7-32.2) 07/04/21 05:45 MCHC 29.7 g/dl (32.2-35.5) L 07/04/21 05:45 RDW Std Deviation 57.3 fL (35.1-43.9) H 07/04/21 05:45 Plt Count 243 K/mm3 (163-337) 07/04/21 05:45 MPV 10.2 fl (9.4-12.3) 07/04/21 05:45 Neut % (Auto) 73.1 % (34.0-67.9) H 07/04/21 05:45 Lymph % (Auto) 11.1 % (21.8-53.1) L 07/04/21 05:45 [place] % (Auto) 7.6 % (5.3-12.2) 07/04/21 05:45 Eos % (Auto) 3.0 (0.8-7.0) 07/04/21 05:45 Baso % (Auto) 0.4 % (0.1-1.2) 07/04/21 05:45 Neut # (Auto) 6.27 K/mm3 (1.78-5.38) H 07/04/21 05:45 Lymph # (Auto) 0.95 K/mm3 (1.32-3.57) L 07/04/21 05:45 [place] # (Auto) 0.65 K/mm3 (0.30-0.82) 07/04/21 05:45 Eos # (Auto) 0.26 K/mm3 (0.04-0.54) 07/04/21 05:45 Baso # (Auto) 0.03 K/mm3 (0.01-0.08) 07/04/21 05:45 Neutrophils % (Manual) 92 % (40-60) H 07/02/21 15:15 Band Neutrophils % 0 % (0-10) 07/02/21 15:15 Lymphocytes % (Manual) 4 % (20-40) L 07/02/21 15:15 Atypical Lymphs % 0 % 07/02/21 15:15 Monocytes % (Manual) 4 % (2-10) 07/02/21 15:15 Eosinophils % (Manual) 0 % (0.8-7.0) L 07/02/21 15:15 Basophils % (Manual) 0 (0.2-1.2) L 07/02/21 15:15 Manual Slide Review Abnormal smear 07/03/21 07:27 Platelet Estimate Adequate 07/02/21 15:15 Plt Morphology Comment Normal 07/02/21 15:15 Hypochromasia 2+ moderate 07/02/21 15:15 Tear Drop Cells 2+ moderate 07/02/21 15:15 RBC Morph Comment Abnormal 07/02/21 15:15 ESR 92 mm/hr (0-15) H 07/02/21 15:15 PT 11.3 SECONDS (9.7-12.0) D 07/02/21 15:15 INR 1.02 07/02/21 15:15 APTT 26.8 SECONDS (21.7-31.4) 07/02/21 15:15 Sodium 145 mEq/L (136-145) 07/04/21 05:45 Potassium 4.0 mEq/L (3.5-5.1) 07/04/21 05:45 Chloride 104 mEq/L (98-107) 07/04/21 05:45 Carbon Dioxide 30 mEq/L (21-32) 07/04/21 05:45 Anion Gap 15.0 (5-15) 07/04/21 05:45 BUN 42 mg/dL (7-18) H 07/04/21 05:45 Creatinine 2.3 mg/dL (0.7-1.3) H 07/04/21 05:45 Est Cr Clr Drug Dosing 23.89 mL/min 07/04/21 05:45 Estimated GFR (MDRD) 28 mL/min (>60) 07/04/21 05:45 BUN/Creatinine Ratio 18.3 (14-18) H 07/04/21 05:45 Glucose 91 mg/dL (70-99) 07/04/21 05:45 Lactic Acid 1.2 mmol/L (0.4-2.0) 07/03/21 07:27 Calcium 8.5 mg/dL (8.5-10.1) 07/04/21 05:45 Phosphorus 4.0 mg/dL (2.6-4.7) 07/03/21 07:27 Magnesium 1.8 mg/dL (1.8-2.4) 07/03/21 07:27 Total Bilirubin 0.4 mg/dL (0.2-1.0) 07/04/21 05:45 AST 20 U/L (15-37) 07/04/21 05:45 ALT 35 U/L (16-63) 07/04/21 05:45 Alkaline Phosphatase 47 U/L (46-116) 07/04/21 05:45 Troponin I 0.053 ng/mL (0.00-0.056) 07/03/21 13:24 C-Reactive Protein 6.9 mg/dL (<1.0) H* 07/02/21 15:15 NT-Pro-B Natriuret Pep 69028 pg/mL (0-450) H 07/02/21 15:15 Total Protein 6.6 g/dl (6.4-8.2) 07/04/21 05:45 Albumin 2.8 g/dl (3.4-5.0) L 07/04/21 05:45 Globulin 3.8 gm/dL 07/04/21 05:45 Albumin/Globulin Ratio 0.7 (1-2) L 07/04/21 05:45 Urine Color Yellow (Yellow) 07/02/21 14:54 Urine Appearance Clear (Clear) 07/02/21 14:54 Urine pH 7.0 (5.0-8.0) 07/02/21 14:54 Ur Specific [place] 1.015 (1.005-1.030) 07/02/21 14:54 Urine Protein Trace (Negative) H 07/02/21 14:54 Urine Glucose (UA) Negative (Negative) 07/02/21 14:54 Urine Ketones Negative (Negative) 07/02/21 14:54 Urine Occult Blood Negative (Negative) 07/02/21 14:54 Urine Nitrite Negative (Negative) 07/02/21 14:54 Urine Bilirubin Negative (Negative) 07/02/21 14:54 Urine Urobilinogen 0.2 (0.2-1.0) 07/02/21 14:54 Ur Leukocyte Esterase Negative (Negative) 07/02/21 14:54 Urine RBC 0-5 /hpf (0-5) 07/02/21 14:54 Urine WBC 0-5 /hpf (0-5) 07/02/21 14:54 Ur Epithelial Cells 0-5 /hpf (0-5) 07/02/21 14:54 Urine Bacteria Not seen /hpf (FEW) 07/02/21 14:54 Urine Mucus Not seen /hpf (FEW) 07/02/21 14:54 SARS-CoV-2 RNA (CHASTITY) Negative (NEGATIVE) 07/03/21 11:23 All labs reviewed and noted and within acceptable ranges to proceed with scheduled procedure. ( chronic renal insufficiency noted) - Imaging/EKG Impressions: CXR: Cardiomegaly, pacemaker, minimal pulmonary congestion EKG: AFib: rate= 95-135, LAD, prolonged QT segment, Q's noted in II, III, avF, Right BBB. - Allergies Allergies/Adverse Reactions: Allergies Allergy/AdvReac Type Severity Reaction Status Date / Time No Known Allergies Allergy Verified 07/02/21 19:24 - Anesthesia Plan Pre-Op Medication Ordered: Beta Rosa Beta Rosa: Metoprolol Med Last Dose Date: 07/04/21 Med Last Dose Time: 09:00 (due at this time: not given as of yet. 07/03/212020 dose given.) - Acknowledgements Anesthesia Type Planned: MAC Pt an Appropriate Candidate for the Planned Anesthesia: Yes Alternatives and Risks of Anesthesia Discussed w Pt/Guardian: Yes Pt/Guardian Understands and Agrees with Anesthesia Plan: Yes PreAnesthesia Questionnaire HEENT History: Reports: Cataract, Hard of Hearing, Impaired Vision, Macular Degeneration Cardiovascular History: Reports: Afib, Heart Failure, Hypertension, Pacemaker Respiratory History: Reports: Asthma, Sleep Apnea, SOB, Other (See Below) Other Respiratory History: wears CPAP at bedtime. He is not on home oxygen therapy although he is chronically dyspneic. 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 Gastrointestinal History: Reports: None Genitourinary History: Reports: Chronic Renal Insuffiency, Other (See Below) Other Genitourinary History: prostate cancer Musculoskeletal History: Reports: Gout, RA Endocrine/Metabolic History: Reports: Obesity/BMI 30+, Vitamin D Deficiency Hematologic History: Reports: Anemia, Anticoagulation Therapy, Folic Acid, Iron Deficiency Other Hematologic History: Eliquis Oncologic (Cancer) History: Reports: Leukemia, Prostate, Other (See Below) Other Oncologic History: LGL Dermatologic History: Reports: Cellulitis - Infectious Disease History Infectious Disease History: Reports: Influenza - Past Surgical History HEENT Surgical History: Reports: Cataract Surgery Cardiovascular Surgical History: Reports: Pacer Respiratory Surgical History: Reports: None GI Surgical History: Reports: Hernia, Abdominal, Hernia Repair/Other Male Surgical History: Reports: None Endocrine Surgical History: Reports: None Musculoskeletal Surgical History: Reports: Hip Replacement Oncologic Surgical History: Reports: None Dermatological Surgical History: Reports: Skin Biopsy - SUBSTANCE USE Tobacco Use Status *Q: Former Tobacco User Tobacco Use Within Last Twelve Months: No Second Hand Smoke Exposure: No Recreational Drug Use History: No - HOME MEDS Home Medications: Home Meds calcitrioL [Calcitriol] 0.25 mcg PO MOFR 03/11/21 [History] Apixaban [Eliquis] 5 mg PO BID 06/28/21 [History] Bumetanide 3 mg PO BID 06/28/21 [History] Doxycycline [Vibra-Tabs] 100 mg PO Q12HR #20 tab 06/28/21 [Rx] Hydrocodone/Acetaminophen [Hydrocodone-Acetamin 5-325 mg] 1 - 2 each PO Q6H PRN #15 tablet 06/28/21 [Rx] metOLazone [Metolazone] 5 mg PO Q48H 06/28/21 [History] predniSONE [Prednisone] 20 mg PO DAILY 06/28/21 [History] Acetaminophen [Acetaminophen Extra Strength] 2 tab PO TID PRN 07/02/21 [History] Ascorbic Acid [Vitamin C] 250 mg PO DAILY 07/02/21 [History] Docusate Sodium [Colace] 100 mg PO DAILY 07/02/21 [History] Folic Acid 1 mg PO DAILY 07/02/21 [History] Multivitamin with Minerals [Multiple Vitamin] 1 tab PO DAILY 07/02/21 [History] [place]-3 Fatty Acids/Fish Oil [Fish Oil 1,000 mg Capsule] 1,000 mg PO DAILY 07/02/21 [History] Potassium Chloride 20 meq PO DAILY 07/02/21 [History] Vit A/Vit C/Vit E/Zinc/Copper [Icaps Areds Formula] 1 tab PO DAILY 07/02/21 [History] Vitamin A 1 cap PO DAILY 07/02/21 [History] Zinc 50 mg PO DAILY 07/02/21 [History] Metoprolol Succinate 50 mg PO BEDTIME 07/03/21 [History] Metoprolol Succinate 100 mg PO QAM 07/03/21 [History] - CURRENT (IN HOUSE) MEDS Current Meds: Current Medications Acetaminophen (Acetaminophen 325 Mg Tab) 650 mg PO Q6H PRN PRN Reason: Pain (Mild 1-3)/fever Hydrocodone Bitart/Acetaminophen (Acetaminophen/Hydrocodone 325-5 Mg Tab) 1 - 2 tab PO Q6H PRN PRN Reason: Pain (moderate 4-6) Last Admin: 07/04/21 00:17 Dose: 1 tab Documented by: Albuterol/Ipratropium (Albuterol/Ipratropium 3.0-0.5 Mg/3 Ml Neb Soln) 3 ml NEB Q4H PRN PRN Reason: Shortness Of Breath/wheezing Apixaban (Apixaban 5 Mg Tab) 5 mg PO BID [facility] Last Admin: 07/03/21 20:21 Dose: 5 mg Documented by: Calcitriol (Calcitriol 0.25 Mcg Cap) 0.25 mcg PO MoFr@0900 [facility] Docusate Sodium (Docusate Sodium 100 Mg Cap) 100 mg PO DAILY [facility] Last Admin: 07/03/21 10:01 Dose: 100 mg Documented by: Folic Acid (Folic Acid 1 Mg Tab) 1 mg PO DAILY [facility] Last Admin: 07/03/21 10:01 Dose: 1 mg Documented by: Furosemide (Furosemide 20 Mg/2 Ml Vial) 20 mg IVPUSH BIDDIURETIC [facility] Last Admin: 07/04/21 06:33 Dose: 20 mg Documented by: Hydromorphone HCl (Hydromorphone 0.5 Mg/0.5 Ml Syringe) 0.5 mg IVPUSH Q4H PRN PRN Reason: Pain (severe 7-10) Last Admin: 07/04/21 04:39 Dose: 0.5 mg Documented by: Promethazine HCl 6.25 mg/ (Sodium Chloride) 50.25 mls @ 100 mls/hr IV Q6H PRN PRN Reason: Nausea/Vomiting Clindamycin Phosphate 900 mg/ (Premix) 50 mls @ 100 mls/hr IV Q8H [facility] Last Admin: 07/04/21 01:35 Dose: 100 mls/hr Documented by: Ceftriaxone Sodium 2 gm/ (Sodium Chloride) 100 mls @ 200 mls/hr IV Q24H [facility] Last Admin: 07/03/21 22:59 Dose: 200 mls/hr Documented by: Metoprolol Succinate (Metoprolol Succinate 50 Mg Tab.Er) 50 mg PO BEDTIME [facility] Last Admin: 07/03/21 20:21 Dose: 50 mg Documented by: Metoprolol Succinate (Metoprolol Succinate 50 Mg Tab.Er) 100 mg PO DAILY [facility] Multivitamins/Minerals/Vitamin C (Multivitamin Tab) 1 tab PO DAILY [facility] Last Admin: 07/03/21 15:46 Dose: 1 tab Documented by: Prednisone (Prednisone 20 Mg Tab) 20 mg PO WITHBREAKFAST [facility] Last Admin: 07/04/21 06:32 Dose: 20 mg Documented by: Vit A/Vit C/Vit E/Selen/Cu/Zn/Lutei (Multivitamins With Minerals/Folic Acid/Lutein/Zeaxanth Tab) 1 tab PO DAILY [facility] Last Admin: 07/03/21 10:01 Dose: 1 tab Documented by: Zinc Sulfate (Zinc Sulfate 220 Mg Cap) 220 mg PO DAILY [facility] Last Admin: 07/03/21 10:01 Dose: 220 mg Documented by: Discontinued Medications Albuterol (Albuterol 6.7 Gm Inhaler) 0 gm INH QID [facility] Last Admin: 07/02/21 23:03 Dose: Not Given Documented by: Bumetanide (Bumetanide 1 Mg/4 Ml Mdv) 2 mg IVPUSH ONETIME ONE Stop: 07/02/21 17:08 Last Admin: 07/02/21 18:32 Dose: 2 mg Documented by: Doxycycline Hyclate (Doxycycline 100 Mg Cap) 100 mg PO ONETIME ONE Stop: 07/02/21 17:07 Last Admin: 07/02/21 18:29 Dose: 100 mg Documented by: Furosemide (Furosemide 20 Mg/2 Ml Vial) 20 mg IVPUSH BID [facility] Last Admin: 07/03/21 17:12 Dose: Not Given Documented by: Gabapentin (Gabapentin 300 Mg Cap) 300 mg PO QID [facility] Last Admin: 07/02/21 23:19 Dose: Not Given Documented by: Hydromorphone HCl (Hydromorphone 1 Mg/Ml Syringe) 1 mg IVPUSH ONETIME ONE Stop: 07/02/21 15:50 Last Admin: 07/02/21 16:04 Dose: 1 mg Documented by: Sodium Chloride (Normal Saline) 1,000 mls @ 75 mls/hr IV ASDIRECTED [facility] Last Admin: 07/03/21 17:44 Dose: 75 mls/hr Documented by: Clindamycin Phosphate 900 mg/ (Premix) 50 mls @ 100 mls/hr IV ONETIME ONE Stop: 07/02/21 17:35 Last Admin: 07/02/21 18:32 Dose: 100 mls/hr Documented by: Ceftriaxone Sodium 2 gm/ (Sodium Chloride) 100 mls @ 200 mls/hr IV Q24H [facility] Last Admin: 07/02/21 23:25 Dose: Not Given Documented by: Metoprolol Succinate (Metoprolol Succinate 50 Mg Tab.Er) 100 mg PO BID [facility] Last Admin: 07/03/21 10:51 Dose: 100 mg Documented by: Multivitamins/Minerals (Multivitamins With Iron/Calcium/Folic Acid/Minerals Tab) 1 each PO DAILY [facility] Last Admin: 07/03/21 15:50 Dose: Not Given Documented by: Ondansetron HCl (Ondansetron 4 Mg/2 Ml Sdv) 4 mg IVPUSH ONETIME ONE Stop: 07/02/21 15:50 Last Admin: 07/02/21 16:04 Dose: 4 mg Documented by: Oxycodone HCl (Oxycodone 5 Mg Tab) 5 mg PO Q6H PRN PRN Reason: Pain (moderate 4-6) Oxycodone/Acetaminophen (Acetaminophen/Oxycodone 325-5 Mg Tab) 2 tab PO ONETIME ONE Stop: 07/02/21 17:06 Last Admin: 07/02/21 18:29 Dose: 2 tab Documented by: Potassium Chloride (Potassium Chloride 20 Meq Tab.Er) 20 meq PO DAILY [facility] Potassium Chloride (Potassium Chloride 20 Meq Tab.Er) 20 meq PO TID [facility] Stop: 07/03/21 15:01 Last Admin: 07/03/21 15:46 Dose: 20 meq Documented by: Prednisone (Prednisone 20 Mg Tab) 20 mg PO WITHBREAKFAST [facility] Last Admin: 07/02/21 23:25 Dose: Not Given Documented by:
[2021-07-04] MEDS: Metoprolol Succinate 50 MG Tab.ER PO SCH ×2 (09:07→20:15)
[2021-07-04] MEDS: Apixaban 5 MG Tab PO SCH ×2 (09:08→20:15)
--- NOTE | 2021-07-04 10:59 | PCM.PN ---
- General Info Date of Service: 07/04/21 Admission Dx/Problem (Free Text): Admission Diagnosis/Problem Admission Diagnosis/Problem Arterial insufficiency of lower extremity Subjective Update: Patient is a 80-year-old male with a history of atrial fibrillation on Eliquis, CHF, sleep apnea on CPAP, chronic rheumatoid arthritis on long-term prednisone and CKD who was brought to the ER due to worsening pain from ulcerations of both legs. General surgeon Dr. Oliveros saw will do I&D today [facility] would not accept him until surgical treatment is completed. - Review of Systems General: Reports: No Symptoms HEENT: Reports: No Symptoms Pulmonary: Reports: No Symptoms Cardiovascular: Reports: Edema - Patient Data Vitals - Most Recent: Last Vital Signs Temp 97.9 F 07/04/21 08:25 Pulse 80 07/04/21 09:07 Resp 22 H 07/04/21 08:25 BP 131/76 07/04/21 09:07 Pulse Ox 99 07/04/21 08:25 Weight - Most Recent: 241 lb 14.4 oz I&O - Last 24 Hours: Intake & Output 07/03/21 07/04/21 07/04/21 22:59 06:59 14:59 Intake Total 2522 1750 Output Total 450 500 Balance 2072 1250 Lab Results Last 24 Hours: Laboratory Results - last 24 hr 07/03/21 07/03/21 07/04/21 Range/Units 11:23 13:24 05:45 WBC 8.57 (4.23-9.07) K/mm3 RBC 3.44 L (4.63-6.08) M/mm3 Hgb 10.2 L (13.7-17.5) gm/dl Hct 34.3 L (40.1-51.0) % MCV 99.7 H (79.0-92.2) fl MCH 29.7 (25.7-32.2) pg MCHC 29.7 L (32.2-35.5) g/dl RDW Std Deviation 57.3 H (35.1-43.9) fL Plt Count 243 (163-337) K/mm3 MPV 10.2 (9.4-12.3) fl Neut % (Auto) 73.1 H (34.0-67.9) % Lymph % (Auto) 11.1 L (21.8-53.1) % [place] % (Auto) 7.6 (5.3-12.2) % Eos % (Auto) 3.0 (0.8-7.0) Baso % (Auto) 0.4 (0.1-1.2) % Neut # (Auto) 6.27 H (1.78-5.38) K/mm3 Lymph # (Auto) 0.95 L (1.32-3.57) K/mm3 [place] # (Auto) 0.65 (0.30-0.82) K/mm3 Eos # (Auto) 0.26 (0.04-0.54) K/mm3 Baso # (Auto) 0.03 (0.01-0.08) K/mm3 Manual Slide Review Abnormal smear Sodium (136-145) mEq/L Potassium (3.5-5.1) mEq/L Chloride (98-107) mEq/L Carbon Dioxide (21-32) mEq/L Anion Gap (5-15) BUN (7-18) mg/dL Creatinine (0.7-1.3) mg/dL Est Cr Clr Drug Dosing mL/min Estimated GFR (MDRD) (>60) mL/min BUN/Creatinine Ratio (14-18) Glucose (70-99) mg/dL Calcium (8.5-10.1) mg/dL Total Bilirubin (0.2-1.0) mg/dL AST (15-37) U/L ALT (16-63) U/L Alkaline Phosphatase (46-116) U/L Troponin I 0.053 (0.00-0.056) ng/mL Total Protein (6.4-8.2) g/dl Albumin (3.4-5.0) g/dl Globulin gm/dL Albumin/Globulin Ratio (1-2) SARS-CoV-2 RNA (CHASTITY) Negative (NEGATIVE) 07/04/21 Range/Units 05:45 WBC (4.23-9.07) K/mm3 RBC (4.63-6.08) M/mm3 Hgb (13.7-17.5) gm/dl Hct (40.1-51.0) % MCV (79.0-92.2) fl MCH (25.7-32.2) pg MCHC (32.2-35.5) g/dl RDW Std Deviation (35.1-43.9) fL Plt Count (163-337) K/mm3 MPV (9.4-12.3) fl Neut % (Auto) (34.0-67.9) % Lymph % (Auto) (21.8-53.1) % [place] % (Auto) (5.3-12.2) % Eos % (Auto) (0.8-7.0) Baso % (Auto) (0.1-1.2) % Neut # (Auto) (1.78-5.38) K/mm3 Lymph # (Auto) (1.32-3.57) K/mm3 [place] # (Auto) (0.30-0.82) K/mm3 Eos # (Auto) (0.04-0.54) K/mm3 Baso # (Auto) (0.01-0.08) K/mm3 Manual Slide Review Sodium 145 (136-145) mEq/L Potassium 4.0 (3.5-5.1) mEq/L Chloride 104 (98-107) mEq/L Carbon Dioxide 30 (21-32) mEq/L Anion Gap 15.0 (5-15) BUN 42 H (7-18) mg/dL Creatinine 2.3 H (0.7-1.3) mg/dL Est Cr Clr Drug Dosing 23.89 mL/min Estimated GFR (MDRD) 28 (>60) mL/min BUN/Creatinine Ratio 18.3 H (14-18) Glucose 91 (70-99) mg/dL Calcium 8.5 (8.5-10.1) mg/dL Total Bilirubin 0.4 (0.2-1.0) mg/dL AST 20 (15-37) U/L ALT 35 (16-63) U/L Alkaline Phosphatase 47 (46-116) U/L Troponin I (0.00-0.056) ng/mL Total Protein 6.6 (6.4-8.2) g/dl Albumin 2.8 L (3.4-5.0) g/dl Globulin 3.8 gm/dL Albumin/Globulin Ratio 0.7 L (1-2) SARS-CoV-2 RNA (CHASTITY) (NEGATIVE) Miquel Results Last 24 Hours: Microbiology 07/02/21 22:07 Aerobic Culture - Preliminary Leg, Unspecified Morganella Morganii Stenotrophomonas Maltophilia Gram Stain - Final 07/02/21 22:07 Gram Stain - Final Leg, Unspecified 07/02/21 22:07 Gram Stain - Final Leg, Right Med Orders - Current: Current Medications Acetaminophen (Acetaminophen 325 Mg Tab) 650 mg PO Q6H PRN PRN Reason: Pain (Mild 1-3)/fever Hydrocodone Bitart/Acetaminophen (Acetaminophen/Hydrocodone 325-5 Mg Tab) 1 - 2 tab PO Q6H PRN PRN Reason: Pain (moderate 4-6) Last Admin: 07/04/21 00:17 Dose: 1 tab Documented by: Albuterol/Ipratropium (Albuterol/Ipratropium 3.0-0.5 Mg/3 Ml Neb Soln) 3 ml NEB Q4H PRN PRN Reason: Shortness Of Breath/wheezing Apixaban (Apixaban 5 Mg Tab) 5 mg PO BID [facility] Last Admin: 07/04/21 09:08 Dose: 5 mg Documented by: Calcitriol (Calcitriol 0.25 Mcg Cap) 0.25 mcg PO MoFr@0900 [facility] Docusate Sodium (Docusate Sodium 100 Mg Cap) 100 mg PO DAILY [facility] Last Admin: 07/03/21 10:01 Dose: 100 mg Documented by: Folic Acid (Folic Acid 1 Mg Tab) 1 mg PO DAILY [facility] Last Admin: 07/03/21 10:01 Dose: 1 mg Documented by: Furosemide (Furosemide 20 Mg/2 Ml Vial) 20 mg IVPUSH BIDDIURETIC [facility] Last Admin: 07/04/21 06:33 Dose: 20 mg Documented by: Hydromorphone HCl (Hydromorphone 0.5 Mg/0.5 Ml Syringe) 0.5 mg IVPUSH Q4H PRN PRN Reason: Pain (severe 7-10) Last Admin: 07/04/21 09:08 Dose: 0.5 mg Documented by: Promethazine HCl 6.25 mg/ (Sodium Chloride) 50.25 mls @ 100 mls/hr IV Q6H PRN PRN Reason: Nausea/Vomiting Clindamycin Phosphate 900 mg/ (Premix) 50 mls @ 100 mls/hr IV Q8H [facility] Last Admin: 07/04/21 09:10 Dose: 100 mls/hr Documented by: Ceftriaxone Sodium 2 gm/ (Sodium Chloride) 100 mls @ 200 mls/hr IV Q24H [facility] Last Admin: 07/03/21 22:59 Dose: 200 mls/hr Documented by: Metoprolol Succinate (Metoprolol Succinate 50 Mg Tab.Er) 50 mg PO BEDTIME [facility] Last Admin: 07/03/21 20:21 Dose: 50 mg Documented by: Metoprolol Succinate (Metoprolol Succinate 50 Mg Tab.Er) 100 mg PO DAILY [facility] Last Admin: 07/04/21 09:07 Dose: 100 mg Documented by: Multivitamins/Minerals/Vitamin C (Multivitamin Tab) 1 tab PO DAILY [facility] Last Admin: 07/03/21 15:46 Dose: 1 tab Documented by: Prednisone (Prednisone 20 Mg Tab) 20 mg PO WITHBREAKFAST [facility] Last Admin: 07/04/21 06:32 Dose: 20 mg Documented by: Vit A/Vit C/Vit E/Selen/Cu/Zn/Lutei (Multivitamins With Minerals/Folic Acid/Lutein/Zeaxanth Tab) 1 tab PO DAILY [facility] Last Admin: 07/03/21 10:01 Dose: 1 tab Documented by: Zinc Sulfate (Zinc Sulfate 220 Mg Cap) 220 mg PO DAILY [facility] Last Admin: 07/03/21 10:01 Dose: 220 mg Documented by: Discontinued Medications Albuterol (Albuterol 6.7 Gm Inhaler) 0 gm INH QID [facility] Last Admin: 07/02/21 23:03 Dose: Not Given Documented by: Bumetanide (Bumetanide 1 Mg/4 Ml Mdv) 2 mg IVPUSH ONETIME ONE Stop: 07/02/21 17:08 Last Admin: 07/02/21 18:32 Dose: 2 mg Documented by: Doxycycline Hyclate (Doxycycline 100 Mg Cap) 100 mg PO ONETIME ONE Stop: 07/02/21 17:07 Last Admin: 07/02/21 18:29 Dose: 100 mg Documented by: Furosemide (Furosemide 20 Mg/2 Ml Vial) 20 mg IVPUSH BID [facility] Last Admin: 07/03/21 17:12 Dose: Not Given Documented by: Gabapentin (Gabapentin 300 Mg Cap) 300 mg PO QID [facility] Last Admin: 07/02/21 23:19 Dose: Not Given Documented by: Hydromorphone HCl (Hydromorphone 1 Mg/Ml Syringe) 1 mg IVPUSH ONETIME ONE Stop: 07/02/21 15:50 Last Admin: 07/02/21 16:04 Dose: 1 mg Documented by: Sodium Chloride (Normal Saline) 1,000 mls @ 75 mls/hr IV ASDIRECTED [facility] Last Admin: 07/03/21 17:44 Dose: 75 mls/hr Documented by: Clindamycin Phosphate 900 mg/ (Premix) 50 mls @ 100 mls/hr IV ONETIME ONE Stop: 07/02/21 17:35 Last Admin: 07/02/21 18:32 Dose: 100 mls/hr Documented by: Ceftriaxone Sodium 2 gm/ (Sodium Chloride) 100 mls @ 200 mls/hr IV Q24H [facility] Last Admin: 07/02/21 23:25 Dose: Not Given Documented by: Metoprolol Succinate (Metoprolol Succinate 50 Mg Tab.Er) 100 mg PO BID [facility] Last Admin: 07/03/21 10:51 Dose: 100 mg Documented by: Multivitamins/Minerals (Multivitamins With Iron/Calcium/Folic Acid/Minerals Tab) 1 each PO DAILY [facility] Last Admin: 07/03/21 15:50 Dose: Not Given Documented by: Ondansetron HCl (Ondansetron 4 Mg/2 Ml Sdv) 4 mg IVPUSH ONETIME ONE Stop: 07/02/21 15:50 Last Admin: 07/02/21 16:04 Dose: 4 mg Documented by: Oxycodone HCl (Oxycodone 5 Mg Tab) 5 mg PO Q6H PRN PRN Reason: Pain (moderate 4-6) Oxycodone/Acetaminophen (Acetaminophen/Oxycodone 325-5 Mg Tab) 2 tab PO ONETIME ONE Stop: 07/02/21 17:06 Last Admin: 07/02/21 18:29 Dose: 2 tab Documented by: Potassium Chloride (Potassium Chloride 20 Meq Tab.Er) 20 meq PO DAILY [facility] Potassium Chloride (Potassium Chloride 20 Meq Tab.Er) 20 meq PO TID [facility] Stop: 07/03/21 15:01 Last Admin: 07/03/21 15:46 Dose: 20 meq Documented by: Prednisone (Prednisone 20 Mg Tab) 20 mg PO WITHBREAKFAST [facility] Last Admin: 07/02/21 23:25 Dose: Not Given Documented by: - Exam General: Alert, Oriented HEENT: Pupils Equal, Mucous Membr. Moist/[place] Neck: Supple Lungs: Normal Respiratory Effort, Decreased Breath Sounds Cardiovascular: Irregular Rhythm (Irregular rate and rhythm) GI/Abdominal Exam: Normal Bowel Sounds, Soft, Non-Tender, No Organomegaly, No Distention, No Abnormal Bruit, No Mass Extremities: Pedal Edema (4+). No: Normal Inspection (Both legs wrapped with C oban) Skin: Warm, Dry, Intact Psy/Mental Status: Alert, Normal Affect, Normal Mood - Patient Data Lab Results Last 24 hrs: Laboratory Results - last 24 hr 07/03/21 07/03/21 07/04/21 Range/Units 11:23 13:24 05:45 WBC 8.57 (4.23-9.07) K/mm3 RBC 3.44 L (4.63-6.08) M/mm3 Hgb 10.2 L (13.7-17.5) gm/dl Hct 34.3 L (40.1-51.0) % MCV 99.7 H (79.0-92.2) fl MCH 29.7 (25.7-32.2) pg MCHC 29.7 L (32.2-35.5) g/dl RDW Std Deviation 57.3 H (35.1-43.9) fL Plt Count 243 (163-337) K/mm3 MPV 10.2 (9.4-12.3) fl Neut % (Auto) 73.1 H (34.0-67.9) % Lymph % (Auto) 11.1 L (21.8-53.1) % [place] % (Auto) 7.6 (5.3-12.2) % Eos % (Auto) 3.0 (0.8-7.0) Baso % (Auto) 0.4 (0.1-1.2) % Neut # (Auto) 6.27 H (1.78-5.38) K/mm3 Lymph # (Auto) 0.95 L (1.32-3.57) K/mm3 [place] # (Auto) 0.65 (0.30-0.82) K/mm3 Eos # (Auto) 0.26 (0.04-0.54) K/mm3 Baso # (Auto) 0.03 (0.01-0.08) K/mm3 Manual Slide Review Abnormal smear Sodium (136-145) mEq/L Potassium (3.5-5.1) mEq/L Chloride (98-107) mEq/L Carbon Dioxide (21-32) mEq/L Anion Gap (5-15) BUN (7-18) mg/dL Creatinine (0.7-1.3) mg/dL Est Cr Clr Drug Dosing mL/min Estimated GFR (MDRD) (>60) mL/min BUN/Creatinine Ratio (14-18) Glucose (70-99) mg/dL Calcium (8.5-10.1) mg/dL Total Bilirubin (0.2-1.0) mg/dL AST (15-37) U/L ALT (16-63) U/L Alkaline Phosphatase (46-116) U/L Troponin I 0.053 (0.00-0.056) ng/mL Total Protein (6.4-8.2) g/dl Albumin (3.4-5.0) g/dl Globulin gm/dL Albumin/Globulin Ratio (1-2) SARS-CoV-2 RNA (CHASTITY) Negative (NEGATIVE) 07/04/21 Range/Units 05:45 WBC (4.23-9.07) K/mm3 RBC (4.63-6.08) M/mm3 Hgb (13.7-17.5) gm/dl Hct (40.1-51.0) % MCV (79.0-92.2) fl MCH (25.7-32.2) pg MCHC (32.2-35.5) g/dl RDW Std Deviation (35.1-43.9) fL Plt Count (163-337) K/mm3 MPV (9.4-12.3) fl Neut % (Auto) (34.0-67.9) % Lymph % (Auto) (21.8-53.1) % [place] % (Auto) (5.3-12.2) % Eos % (Auto) (0.8-7.0) Baso % (Auto) (0.1-1.2) % Neut # (Auto) (1.78-5.38) K/mm3 Lymph # (Auto) (1.32-3.57) K/mm3 [place] # (Auto) (0.30-0.82) K/mm3 Eos # (Auto) (0.04-0.54) K/mm3 Baso # (Auto) (0.01-0.08) K/mm3 Manual Slide Review Sodium 145 (136-145) mEq/L Potassium 4.0 (3.5-5.1) mEq/L Chloride 104 (98-107) mEq/L Carbon Dioxide 30 (21-32) mEq/L Anion Gap 15.0 (5-15) BUN 42 H (7-18) mg/dL Creatinine 2.3 H (0.7-1.3) mg/dL Est Cr Clr Drug Dosing 23.89 mL/min Estimated GFR (MDRD) 28 (>60) mL/min BUN/Creatinine Ratio 18.3 H (14-18) Glucose 91 (70-99) mg/dL Calcium 8.5 (8.5-10.1) mg/dL Total Bilirubin 0.4 (0.2-1.0) mg/dL AST 20 (15-37) U/L ALT 35 (16-63) U/L Alkaline Phosphatase 47 (46-116) U/L Troponin I (0.00-0.056) ng/mL Total Protein 6.6 (6.4-8.2) g/dl Albumin 2.8 L (3.4-5.0) g/dl Globulin 3.8 gm/dL Albumin/Globulin Ratio 0.7 L (1-2) SARS-CoV-2 RNA (CHASTITY) (NEGATIVE) Result Diagrams: 07/04/21 05:45 07/04/21 05:45 Miquel Results Last 24 hrs: Microbiology 07/02/21 22:07 Aerobic Culture - Preliminary Leg, Unspecified Morganella Morganii Stenotrophomonas Maltophilia Gram Stain - Final 07/02/21 22:07 Gram Stain - Final Leg, Unspecified 07/02/21 22:07 Gram Stain - Final Leg, Right Sepsis Event Note - Evaluation Sepsis Screening Result: No Definite Risk - Focused Exam Vital Signs: Vital Signs Temp Pulse Resp BP Pulse Ox 07/04/21 09:07 80 131/76 07/04/21 08:25 97.9 F 83 22 H 107/81 99 07/04/21 04:15 98.1 F 81 16 139/91 H 98 07/04/21 01:41 97.7 F 77 16 113/80 97 - Problem List & Annotations (1) Arterial insufficiency with ischemic ulcer SNOMED Code(s): 651547033 Code(s): I77.1 - STRICTURE OF ARTERY; L98.499 - NON-PRESSURE CHRONIC ULCER OF SKIN OF SITES W UNSP SEVERITY Status: Acute Current Visit: Yes (2) Cellulitis of lower extremity SNOMED Code(s): 246256038 Code(s): L03.119 - CELLULITIS OF UNSPECIFIED PART OF LIMB Status: Acute Current Visit: Yes Qualifiers: Laterality: left Qualified Code(s): L03.116 - Cellulitis of left lower limb (3) Chronic pain syndrome SNOMED Code(s): 283943380 Code(s): G89.4 - CHRONIC PAIN SYNDROME Status: Acute Current Visit: Yes (4) Chronic renal insufficiency, stage III (moderate) SNOMED Code(s): 066973523 Code(s): N18.30 - CHRONIC KIDNEY DISEASE, STAGE 3 UNSPECIFIED Status: Acute Current Visit: Yes Qualifiers: Chronic kidney disease stage 3 subtype: stage 3b (GFR 30-44) Qualified Code(s): N18.32 - Chronic kidney disease, stage 3b (5) Congestive heart failure SNOMED Code(s): 06062393 Code(s): I50.9 - HEART FAILURE, UNSPECIFIED Status: Acute Current Visit: Yes Qualifiers: Heart failure type: diastolic Heart failure chronicity: acute on chronic Qualified Code(s): I50.33 - Acute on chronic diastolic (congestive) heart failure - Problem List Review Problem List Initiated/Reviewed/Updated: Yes - Plan Plan:: Patient is a 80-year-old male with a history of atrial fibrillation on Eliquis, CHF, sleep apnea on CPAP, chronic rheumatoid arthritis on long-term prednisone and CKD who was brought to the ER due to ulcerations of both legs. 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 LAURO values are recommended. No definitive stenoses or occlusion is seen. Blood culture from 06/27 showed positive staphylococcus epidermidis which is likely a contaminant. Was on doxycycline 100 mg twice daily for 5 days Blood culture would culture wound culture grew out Morganella Morgagni and stenotrophomonas maltophilia wound care with topical antibiotics d/c Ceftriaxone and clindamycin Start Levaquin renally dosed per pharmacy surgical consulted. Dr. Oliveros will perform I&D Chronic atrial fibrillation Pacemaker in place Rate is controlled Continue metoprolol 100 mg twice daily Continue home Eliquis 5 mg twice daily Acute on chronic CHF Unknown type BNP 13,466, likely worsened secondary to CKD Troponin mildly elevated, now resolved CXR - moderate cardiomegaly Bumetanide 1-2 mg bid and metolazone 5mg Q48hrs are on hold. Continue metoprolol 100mg bid DC Lasix Give Bumex 3 mg now. Start Bumex 3 mg twice daily in the morning. Start metolazone 5 mg every 48 hours in the morning Echocardiogram Intake and output prolonged QT interval Avoid medication which prolonged QT Sleep Apnea, not on home oxygen Continue home CPAP at bedtime Chronic rheumatoid arthritis Prednisone 20mg daily has been on prednisone for many years (30 to 40 years per patient) and is steroid-dependent CKD, stage III Avoid nephrotoxic meds Follow renal function Renal function appears to be stable from baseline Elevation of troponin 0.063 in the ER recheck was normal The elevation could result from CKD, CHF, or infection EKG no ST elevation Repeat troponin 0.053 Self care deficit difficulty walking PT OT DVT prophylaxis: Eliquis CODE STATUS: Full Disposition: ER physician fax patient's chart to [facility] in [place]. [facility] would not accept him until surgical treatment is completed.
[2021-07-04] MEDS ORDERED: Levofloxacin 750 MG Tab PO SCH (13:00)
[2021-07-04] MEDS ORDERED: Bumetanide 1 MG/4 ML MDV IVPUSH ONE (14:00)
[2021-07-04] MEDS ORDERED: Ketamine 500 mg/10 ML MDV ONE (14:02)
[2021-07-04] MEDS ORDERED: Midazolam 1 MG/ML 2 ML SDV ONE ×2 (14:02→15:20)
[2021-07-04] MEDS ORDERED: Bacitracin Oint 15 GM Tube ONE ×2 (14:14→14:48)
[2021-07-04] MEDS ORDERED: fentaNYL 100 MCG/2 ML SDV ONE ×3 (14:16→14:57)
[2021-07-04] MEDS: Bupivacaine 0.5% 30 ML SDV ONE ×2 (14:19→14:34)
[2021-07-04] MEDS ORDERED: Ondansetron 4 MG/2 ML SDV IVPUSH PRN (15:52)
[2021-07-04] MEDS ORDERED: HYDROmorphone 0.5 MG/0.5 ML Syringe IVPUSH PRN (15:52)
[2021-07-04] MEDS ORDERED: fentaNYL 100 MCG/2 ML SDV IVPUSH PRN (15:52)
--- NOTE | 2021-07-04 15:54 | PCM.POSTAN ---
POST ANESTHESIA ASSESSMENT - MENTAL STATUS Mental Status: Somnolent - VITAL SIGNS Vital Signs: Last Vital Signs Temp 97.5 F 07/04/21 11:13 Pulse 77 07/04/21 11:13 Resp 20 07/04/21 11:13 BP 121/89 07/04/21 11:13 Pulse Ox 100 07/04/21 11:13 1543 133/93 87 14 97.4 99% - RESPIRATORY Respiratory Status: Respiratory Rate WNL, Airway Patent, O2 Saturation Stable, Supplemental Oxygen - CARDIOVASCULAR CV Status: Pulse Rate WNL, Blood Pressure Stable - GASTROINTESTINAL GI Status: No Symptoms - PAIN Pain Score: 0 - POST OP HYDRATION Hydration Status: Adequate & Stable
--- NOTE | 2021-07-04 16:06 | PCM.PRNOTE ---
- Free Text/Narrative Note: Date: 07/04/2021 Operation: debridement of bilateral lower extremity wounds Indication: chronic painful leg ulcers related to lymphedema with devitalized and infected tissue Surgeon: Peewee Oliveros MD Findings: areas of necrotic skin and subcutaneous tissue, debrided to healthy, perfused tissue. Wound beds were friable and bled easily, patient is on eliquis for atrial fibrillation. Detailed Report: The patient was taken to the operating room and kept seated in a wheelchair. Monitored anesthesia care was initiated. The left lower extremity was addressed first. The wounds were scrubbed with iodine prep. This was not a sterile procedure and sterile technique was not utilized. On the lateral surface of the leg was an area of necrotic skin measuring approximately 7 x 5 cm. This was excised circumferentially and down to the level of muscle fascia sharply. The tissue was malodorous and was a mix of mushy cohen and black necrotic tissue with dishwater edema. All this tissue was debrided back to healthy perfused tissue. Other areas of ulceration were without such necrotic or infected tissue; however, these were cleaned with a curette and waxy fibrinous debris was removed from the surface of the wound. Once all devitalized tissue was cleared, dressings of bacitracin and Adaptic were applied, and a wrap of Kerlix and compressive Coban was applied to the leg. Next, attention was turned to the right leg. The leg was scrubbed with iodine prep. The anterior ulcer was long and superficial, and the surface was curetted. There was significant bleeding anteriorly from large veins after gentle debridement. Hemostasis was achieved with a combination of suture placement and directed monopolar energy. Surgicel was also applied to aid in hemostasis. The separate posterior ulcer was similar to the area of necrosis on the left lower extremity. This was excised circumferentially down to the level of subcutaneous fat. This ulcer measured approximately 5 x 5 cm once satisfied that all fibrinous debris had been cleared and devitalized tissue had been excised sharply back to healthy, perfused tissue, similar dressings of bacitracin, Adaptic, Kerlix wrap and compressive Coban were applied. Patient tolerated the procedure well.
[2021-07-04] MEDS: Folic Acid 1 MG Tab PO SCH (16:29)
[2021-07-04] MEDS: Zinc Sulfate 220 MG Cap PO SCH (16:29)
[2021-07-04] MEDS: Multivitamin Tab PO SCH (16:29)
[2021-07-04] MEDS: Docusate Sodium 100 MG Cap PO SCH (16:29)
[2021-07-04] MEDS: Multivitamins with Minerals/Folic Acid/Lutein/Zeaxanth Tab PO SCH (16:29)
[2021-07-05] MEDS: HYDROmorphone 0.5 MG/0.5 ML Syringe IVPUSH PRN ×2 (01:27→08:30)
[2021-07-05] MEDS: Acetaminophen/HYDROcodone 325-5 MG Tab PO PRN ×2 (05:58→11:14)
[2021-07-05] MEDS: Bumetanide 1 MG Tab PO SCH ×2 (05:58→13:05)
[2021-07-05] MEDS: Docusate Sodium 100 MG Cap PO SCH (08:15)
[2021-07-05] MEDS: Multivitamin Tab PO SCH (08:15)
[2021-07-05] MEDS: predniSONE 20 MG Tab PO SCH (08:15)
[2021-07-05] MEDS: Zinc Sulfate 220 MG Cap PO SCH (08:15)
[2021-07-05] MEDS: Metoprolol Succinate 50 MG Tab.ER PO SCH (08:16)
[2021-07-05] MEDS: Folic Acid 1 MG Tab PO SCH (08:17)
[2021-07-05] MEDS: Apixaban 5 MG Tab PO SCH (08:17)
[2021-07-05] MEDS: Multivitamins with Minerals/Folic Acid/Lutein/Zeaxanth Tab PO SCH (08:17)
[2021-07-05] MEDS ORDERED: Metolazone 5 MG Tab PO SCH (09:00)
[2021-07-05] MEDS ORDERED: Calcitriol 0.25 MCG Cap PO SCH (09:00)
--- NOTE | 2021-07-05 12:45 | PCM.SN.2 ---
- Free Text/Narrative Note: POD 1 s/p debridement of infected and devitalized tissue associated with chronic leg ulcers stemming from heart failure and lymphedema. Pain today is comparable to that experienced pre-operatively. Plan for discharge to [facility] for management of chronic wounds. Given that there is no evidence of cellulitis, fasciitis, abscess or exposed bone, I do not think continued antibiotics are indicated; source control should be achieved after operative debridement yesterday. Wound cultures were obtained on the wards pre-operatively and contaminant from atmospheric exposure is to be expected; these wound cultures are not helpful. Regarding wound care, it will be challenge to get these wounds to heal as the patient has difficulty tolerating compression and elevation. I recommend twice daily dressing changes with bacitracin ointment and non-adherent dressing like Adaptic to the wounds, followed by compressive wrap with kerlix gauze and Coban. If there are any questions or concerns, please call my clinic at [phone]. -Peewee Oliveros MD General Surgery
--- NOTE | 2021-07-05 13:00 | PCM.DCSUM1 ---
Discharge Summary - Hospital Course HPI Initial Comments: Patient is a 80-year-old male with a history of atrial fibrillation on Eliquis, CHF, sleep apnea on CPAP, chronic rheumatoid arthritis on long-term prednisone and CKD who was brought to the ER due to ulcerations of both legs. As per patient and , these ulcers started in December 2020. Patient was hospitalized to [facility] in [place]. Over there they found patient has arterial insufficiency of both legs. Patient complains of pain from both legs, decreased appetite and difficulty walking and standing up. Patient came to the ER on June 27 when blood culture was drawn, showing staph epidermidis (likely contamination). he was given doxycycline 100 mg twice daily. He was supposed to see general surgeon Dr. Peewee Oliveros yesterday but he was not able to see him because he could not get up. Patient has chronic rheumatoid arthritis, for which he has been taking prednisone for 30 to 40 years. Patient is a 80-year-old male with a history of atrial fibrillation on Eliquis, CHF, sleep apnea on CPAP, chronic rheumatoid arthritis on long-term prednisone and CKD who was brought to the ER due to ulcerations of both legs. 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 Has been on doxycycline 100 mg twice daily for 5 days would culture wound care with topical antibiotics Ceftriaxone and clindamycin Chronic atrial fibrillation Pacemaker in place Rate is controlled Continue metoprolol 100 mg twice daily Continue home Eliquis 5 mg twice daily Acute on chronic CHF Unknown type BNP 13,466 Troponin mildly elevated CXR - moderate cardiomegaly Bumetanide 1-2 mg bid and metolazone 5mg Q48hrs are on hold. Continue metoprolol 100mg bid Echocardiogram Intake and output prolonged QT interval Avoid medication which prolonged QT Sleep Apnea, not on home oxygen Continue home CPAP at bedtime Chronic rheumatoid arthritis Prednisone 20mg daily has been on prednisone for many years (30 to 40 yards per patient) and is steroid-dependent CKD, stage III Avoid nephrotoxic meds Repeat renal function in morning Elevation of troponin 0.063 in the ER The elevation could result from CKD, CHF, or infection EKG no ST elevation Repeat troponin Self care deficit difficulty walking PT OT DVT prophylaxis: Eliquis CODE STATUS: Full Disposition: ER physician fax patient's chart to [facility] in [place]. Hopefully they can accept this patient. Diagnosis: Stroke: No - Discharge Data Discharge Date: 07/05/21 Discharge Disposition: DC/Tfer to Other 70 Condition: Good - Referral to Home Health Primary Care Physician: PCP None - Discharge Diagnosis/Problem(s) (1) Arterial insufficiency with ischemic ulcer SNOMED Code(s): 972324686 ICD Code: I77.1 - STRICTURE OF ARTERY; L98.499 - NON-PRESSURE CHRONIC ULCER OF SKIN OF SITES W UNSP SEVERITY Status: Acute Current Visit: Yes (2) Cellulitis of lower extremity SNOMED Code(s): 057999562 ICD Code: L03.119 - CELLULITIS OF UNSPECIFIED PART OF LIMB Status: Acute Current Visit: Yes Qualifiers: Laterality: left Qualified Code(s): L03.116 - Cellulitis of left lower limb (3) Chronic pain syndrome SNOMED Code(s): 127569517 ICD Code: G89.4 - CHRONIC PAIN SYNDROME Status: Acute Current Visit: Yes (4) Chronic renal insufficiency, stage III (moderate) SNOMED Code(s): 533323611 ICD Code: N18.30 - CHRONIC KIDNEY DISEASE, STAGE 3 UNSPECIFIED Status: Acute Current Visit: Yes Qualifiers: Chronic kidney disease stage 3 subtype: stage 3b (GFR 30-44) Qualified Code(s): N18.32 - Chronic kidney disease, stage 3b (5) Congestive heart failure SNOMED Code(s): 47509718 ICD Code: I50.9 - HEART FAILURE, UNSPECIFIED Status: Acute Current Visit: Yes Qualifiers: Heart failure type: diastolic Heart failure chronicity: acute on chronic Qualified Code(s): I50.33 - Acute on chronic diastolic (congestive) heart failure - Patient Summary/Data Consults: Consultations 07/02/21 19:33 OT Evaluation and Treatment [CONS] Routine PT Evaluation and Treatment [CONS] Routine 07/03/21 02:06 Consult to Physical Therapy [PT Evaluation and Treatment] [CONS] Routine 07/03/21 08:30 Consult to Physician [CONS] Routine Hospital Course: Patient is a 80-year-old male with a history of atrial fibrillation on Eliquis, CHF, sleep apnea on CPAP, chronic rheumatoid arthritis on long-term prednisone and CKD who was brought to the ER due to ulcerations of both legs. 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 LAURO values are recommended. No definitive stenoses or occlusion is seen. Blood culture from 06/27 showed positive staphylococcus epidermidis which is likely a contaminant. Was on doxycycline 100 mg twice daily for 5 days Blood culture would culture wound culture grew out Morganella Morgagni and stenotrophomonas maltophilia and multiple other zenaida. wound care with topical antibiotics Levaquin 750 mg p.o. every [address] Oliveros in surgery did an I&D on his lower extremities yesterday. Chronic atrial fibrillation Pacemaker in place Rate is controlled Continue metoprolol 100 mg twice daily Continue home Eliquis 5 mg twice daily Acute on chronic CHF Unknown type BNP 13,466, likely worsened secondary to CKD Troponin mildly elevated, now resolved CXR - moderate cardiomegaly Bumetanide 1-2 mg bid and metolazone 5mg Q48hrs are on hold. Continue metoprolol 100mg bid DC Lasix Bumex 3 mg twice daily in the morning. Start metolazone 5 mg every 48 hours in the morning Intake and output prolonged QT interval Avoid medication which prolonged QT Sleep Apnea, not on home oxygen Continue home CPAP at bedtime Chronic rheumatoid arthritis Prednisone 20mg daily has been on prednisone for many years (30 to 40 years per patient) and is steroid-dependent CKD, stage III Avoid nephrotoxic meds Follow renal function Renal function appears to be stable from baseline Elevation of troponin 0.063 in the ER The elevation could result from CKD, CHF, or infection EKG no ST elevation Repeat troponin 0.053 Self care deficit difficulty walking PT OT DVT prophylaxis: Eliquis CODE STATUS: Full Disposition: Transfer to [facility] in [place]. - Patient Instructions Diet: Usual Diet as Tolerated Other/Special Instructions: Ongoing labs to include but not limited to CBC and BMP - Discharge Plan *PRESCRIPTION DRUG MONITORING PROGRAM REVIEWED*: Not Applicable *COPY OF PRESCRIPTION DRUG MONITORING REPORT IN PATIENT JOSEFA: Not Applicable Home Medications: Home Meds calcitrioL [Calcitriol] 0.25 mcg PO MOFR 03/11/21 [History] Apixaban [Eliquis] 5 mg PO BID 06/28/21 [History] Bumetanide 3 mg PO BID 06/28/21 [History] Hydrocodone/Acetaminophen [HYDROcodone-Acetaminophen 5-325 MG] 1 - 2 each PO Q6H PRN #15 tablet 06/28/21 [Rx] metOLazone [Metolazone] 5 mg PO Q48H 06/28/21 [History] predniSONE [Prednisone] 20 mg PO DAILY 06/28/21 [History] Docusate Sodium [Colace] 100 mg PO DAILY 07/02/21 [History] Folic Acid 1 mg PO DAILY 07/02/21 [History] Multivitamin with Minerals [Multiple Vitamin] 1 tab PO DAILY 07/02/21 [History] Vit A/Vit C/Vit E/Zinc/Copper [Icaps Areds Formula] 1 tab PO DAILY 07/02/21 [History] Zinc 50 mg PO DAILY 07/02/21 [History] Metoprolol Succinate 50 mg PO BEDTIME 07/03/21 [History] Metoprolol Succinate 100 mg PO QAM 07/03/21 [History] Acetaminophen [Tylenol] 650 mg PO Q6H PRN tablet 07/05/21 [Rx] Albuterol/Ipratropium [DuoNeb 3.0-0.5 MG/3 ML] 3 ml NEB Q4H PRN neb 07/05/21 [Rx] Bumetanide [Bumex] 3 mg PO BIDDIURETIC tablet 07/05/21 [Rx] HYDROmorphone [Dilaudid] 0.5 mg IVPUSH Q4H PRN syringe 07/05/21 [Rx] levoFLOXacin [Levaquin] 750 mg PO Q48H tablet 07/05/21 [Rx] Oxygen Therapy Mode: Room Air Patient Handouts: Heart Failure Action Plan, Sepsis, Self Care, Adult Forms: ED Department Discharge Referrals: Adrienne Schrader NP [Ordering Only Provider] - - Discharge Summary/Plan Comment DC Time >30 min.: Yes Total # of Minutes for Discharge Time: 45 Total time spent includes seeing the patient, doing discharge paperwork, and arranging care. - General Info Date of Service: 07/05/21 Admission Dx/Problem (Free Text: Admission Diagnosis/Problem Admission Diagnosis/Problem Arterial insufficiency of lower extremity Subjective Update: Patient is doing well. No complaints today and pain is improved. Functional Status: Reports: Pain Controlled - Review of Systems General: Reports: No Symptoms HEENT: Reports: No Symptoms Pulmonary: Reports: No Symptoms Cardiovascular: Reports: Edema Psychiatric: Reports: No Symptoms - Patient Data Vitals - Most Recent: Last Vital Signs Temp 98.8 F 07/05/21 11:41 Pulse 83 07/05/21 11:41 Resp 11 L 07/05/21 11:41 BP 109/80 07/05/21 11:41 Pulse Ox 98 07/05/21 11:41 Weight - Most Recent: 238 lb 6.4 oz I&O - Last 24 hours: Intake & Output 07/04/21 07/05/21 07/05/21 22:59 06:59 14:59 Intake Total 50 Output Total 500 Balance -450 Lab Results - Last 24 hrs: Laboratory Results - last 24 hr 07/05/21 07/05/21 Range/Units 06:11 06:11 WBC 11.35 H (4.23-9.07) K/mm3 RBC 3.47 L (4.63-6.08) M/mm3 Hgb 10.4 L (13.7-17.5) gm/dl Hct 34.5 L (40.1-51.0) % MCV 99.4 H (79.0-92.2) fl MCH 30.0 (25.7-32.2) pg MCHC 30.1 L (32.2-35.5) g/dl RDW Std Deviation 57.7 H (35.1-43.9) fL Plt Count 245 (163-337) K/mm3 MPV 10.1 (9.4-12.3) fl Neut % (Auto) 80.6 H (34.0-67.9) % Lymph % (Auto) 7.6 L (21.8-53.1) % Andrew % (Auto) 6.6 (5.3-12.2) % Eos % (Auto) 1.8 (0.8-7.0) Baso % (Auto) 0.3 (0.1-1.2) % Neut # (Auto) 9.16 H (1.78-5.38) K/mm3 Lymph # (Auto) 0.86 L (1.32-3.57) K/mm3 Andrew # (Auto) 0.75 (0.30-0.82) K/mm3 Eos # (Auto) 0.20 (0.04-0.54) K/mm3 Baso # (Auto) 0.03 (0.01-0.08) K/mm3 Manual Slide Review Abnormal smear Sodium 143 (136-145) mEq/L Potassium 3.7 (3.5-5.1) mEq/L Chloride 103 (98-107) mEq/L Carbon Dioxide 27 (21-32) mEq/L Anion Gap 16.7 H (5-15) BUN 39 H (7-18) mg/dL Creatinine 2.2 H (0.7-1.3) mg/dL Est Cr Clr Drug Dosing 24.97 mL/min Estimated GFR (MDRD) 29 (>60) mL/min BUN/Creatinine Ratio 17.7 (14-18) Glucose 72 (70-99) mg/dL Calcium 8.6 (8.5-10.1) mg/dL Total Bilirubin 0.6 (0.2-1.0) mg/dL AST 20 (15-37) U/L ALT 26 (16-63) U/L Alkaline Phosphatase 54 (46-116) U/L Total Protein 6.5 (6.4-8.2) g/dl Albumin 2.7 L (3.4-5.0) g/dl Globulin 3.8 gm/dL Albumin/Globulin Ratio 0.7 L (1-2) ESPERANZA Results - Last 24 hrs: Microbiology 07/02/21 22:07 Aerobic Culture - Preliminary Leg, Unspecified Citrobacter Braakii Enterobacter Aerogenes Gram Positive Cocci Staphylococcus Coagulase Neg Gram Stain - Final Anaerobic Culture - Preliminary 07/02/21 22:07 Aerobic Culture - Preliminary Leg, Right Morganella Morganii Enterobacter Aerogenes Gram Positive Cocci Staphylococcus Coagulase Neg Gram Negative Rods Gram Stain - Final Anaerobic Culture - Preliminary 07/02/21 22:07 Aerobic Culture - Preliminary Leg, Unspecified Morganella Morganii Stenotrophomonas Maltophilia Gram Positive Cocci Gram Negative Rods Gram Negative Rods#2 Gram Stain - Final Anaerobic Culture - Preliminary 07/02/21 15:22 Blood Culture - Preliminary Blood - Venous - Lab Draw 07/02/21 15:15 Blood Culture - Preliminary Blood - Venous Med Orders - Current: Current Medications Acetaminophen (Acetaminophen 325 Mg Tab) 650 mg PO Q6H PRN PRN Reason: Pain (Mild 1-3)/fever Hydrocodone Bitart/Acetaminophen (Acetaminophen/Hydrocodone 325-5 Mg Tab) 1 - 2 tab PO Q6H PRN PRN Reason: Pain (moderate 4-6) Last Admin: 07/05/21 11:14 Dose: 2 tab Documented by: Albuterol/Ipratropium (Albuterol/Ipratropium 3.0-0.5 Mg/3 Ml Neb Soln) 3 ml NEB Q4H PRN PRN Reason: Shortness Of Breath/wheezing Apixaban (Apixaban 5 Mg Tab) 5 mg PO BID [facility] Last Admin: 07/05/21 08:17 Dose: 5 mg Documented by: Bumetanide (Bumetanide 1 Mg Tab) 3 mg PO BIDDIURETIC [facility] Last Admin: 07/05/21 05:58 Dose: 3 mg Documented by: Calcitriol (Calcitriol 0.25 Mcg Cap) 0.25 mcg PO MoFr@0900 [facility] Last Admin: 07/05/21 08:15 Dose: 0.25 mcg Documented by: Docusate Sodium (Docusate Sodium 100 Mg Cap) 100 mg PO DAILY [facility] Last Admin: 07/05/21 08:15 Dose: 100 mg Documented by: Folic Acid (Folic Acid 1 Mg Tab) 1 mg PO DAILY [facility] Last Admin: 07/05/21 08:17 Dose: 1 mg Documented by: Hydromorphone HCl (Hydromorphone 0.5 Mg/0.5 Ml Syringe) 0.5 mg IVPUSH Q4H PRN PRN Reason: Pain (severe 7-10) Last Admin: 07/05/21 08:30 Dose: 0.5 mg Documented by: Promethazine HCl 6.25 mg/ (Sodium Chloride) 50.25 mls @ 100 mls/hr IV Q6H PRN PRN Reason: Nausea/Vomiting Levofloxacin (Levofloxacin 750 Mg Tab) 750 mg PO Q48H [facility] Last Admin: 07/04/21 20:15 Dose: 750 mg Documented by: Metolazone (Metolazone 5 Mg Tab) 5 mg PO Q48H [facility] Last Admin: 07/05/21 08:15 Dose: 5 mg Documented by: Metoprolol Succinate (Metoprolol Succinate 50 Mg Tab.Er) 50 mg PO BEDTIME [facility] Last Admin: 07/04/21 20:15 Dose: 50 mg Documented by: Metoprolol Succinate (Metoprolol Succinate 50 Mg Tab.Er) 100 mg PO DAILY [facility] Last Admin: 07/05/21 08:16 Dose: 100 mg Documented by: Multivitamins/Minerals/Vitamin C (Multivitamin Tab) 1 tab PO DAILY [facility] Last Admin: 07/05/21 08:15 Dose: 1 tab Documented by: Prednisone (Prednisone 20 Mg Tab) 20 mg PO WITHBREAKFAST [facility] Last Admin: 07/05/21 08:15 Dose: 20 mg Documented by: Vit A/Vit C/Vit E/Selen/Cu/Zn/Lutei (Multivitamins With Minerals/Folic Acid/Lutein/Zeaxanth Tab) 1 tab PO DAILY [facility] Last Admin: 07/05/21 08:17 Dose: 1 tab Documented by: Zinc Sulfate (Zinc Sulfate 220 Mg Cap) 220 mg PO DAILY [facility] Last Admin: 07/05/21 08:15 Dose: 220 mg Documented by: Discontinued Medications Albuterol (Albuterol 6.7 Gm Inhaler) 0 gm INH QID [facility] Last Admin: 07/02/21 23:03 Dose: Not Given Documented by: Bacitracin (Bacitracin Oint 15 Gm Tube) Confirm Administered Dose 15 gm .ROUTE .STK-MED ONE Stop: 07/04/21 14:15 Last Admin: 07/04/21 10:46 Dose: 15 gm Documented by: Bacitracin (Bacitracin Oint 15 Gm Tube) Confirm Administered Dose 15 gm .ROUTE .STK-MED ONE Stop: 07/04/21 14:49 Last Admin: 07/04/21 10:47 Dose: 15 gm Documented by: Bumetanide (Bumetanide 1 Mg/4 Ml Mdv) 2 mg IVPUSH ONETIME ONE Stop: 07/02/21 17:08 Last Admin: 07/02/21 18:32 Dose: 2 mg Documented by: Bumetanide (Bumetanide 1 Mg/4 Ml Mdv) 3 mg IVPUSH ONETIME ONE Stop: 07/04/21 14:01 Last Admin: 07/04/21 18:10 Dose: 3 mg Documented by: Bupivacaine HCl (Bupivacaine 0.5% 30 Ml Sdv) Confirm Administered Dose 30 ml .ROUTE .STK-MED ONE Stop: 07/04/21 13:27 Last Admin: 07/04/21 14:19 Dose: 30 ml Documented by: Doxycycline Hyclate (Doxycycline 100 Mg Cap) 100 mg PO ONETIME ONE Stop: 07/02/21 17:07 Last Admin: 07/02/21 18:29 Dose: 100 mg Documented by: Fentanyl (Fentanyl 100 Mcg/2 Ml Sdv) Confirm Administered Dose 100 mcg .ROUTE .STK-MED ONE Stop: 07/04/21 14:17 Fentanyl (Fentanyl 100 Mcg/2 Ml Sdv) Confirm Administered Dose 100 mcg .ROUTE .STK-MED ONE Stop: 07/04/21 14:33 Fentanyl (Fentanyl 100 Mcg/2 Ml Sdv) Confirm Administered Dose 100 mcg .ROUTE .STK-MED ONE Stop: 07/04/21 14:58 Fentanyl (Fentanyl 100 Mcg/2 Ml Sdv) 50 mcg IVPUSH Q5M PRN PRN Reason: Pain Stop: 07/04/21 18:30 Furosemide (Furosemide 20 Mg/2 Ml Vial) 20 mg IVPUSH BID [facility] Last Admin: 07/03/21 17:12 Dose: Not Given Documented by: Furosemide (Furosemide 20 Mg/2 Ml Vial) 20 mg IVPUSH BIDDIURETIC [facility] Last Admin: 07/04/21 06:33 Dose: 20 mg Documented by: Gabapentin (Gabapentin 300 Mg Cap) 300 mg PO QID [facility] Last Admin: 07/02/21 23:19 Dose: Not Given Documented by: Hydromorphone HCl (Hydromorphone 1 Mg/Ml Syringe) 1 mg IVPUSH ONETIME ONE Stop: 07/02/21 15:50 Last Admin: 07/02/21 16:04 Dose: 1 mg Documented by: Hydromorphone HCl (Hydromorphone 0.5 Mg/0.5 Ml Syringe) 0.5 mg IVPUSH Q10M PRN PRN Reason: Pain (severe 7-10) Stop: 07/04/21 18:30 Sodium Chloride (Normal Saline) 1,000 mls @ 75 mls/hr IV ASDIRECTED [facility] Last Admin: 07/03/21 17:44 Dose: 75 mls/hr Documented by: Clindamycin Phosphate 900 mg/ (Premix) 50 mls @ 100 mls/hr IV ONETIME ONE Stop: 07/02/21 17:35 Last Admin: 07/02/21 18:32 Dose: 100 mls/hr Documented by: Ceftriaxone Sodium 2 gm/ (Sodium Chloride) 100 mls @ 200 mls/hr IV Q24H [facility] Last Admin: 07/02/21 23:25 Dose: Not Given Documented by: Clindamycin Phosphate 900 mg/ (Premix) 50 mls @ 100 mls/hr IV Q8H [facility] Last Admin: 07/04/21 09:10 Dose: 100 mls/hr Documented by: Ceftriaxone Sodium 2 gm/ (Sodium Chloride) 100 mls @ 200 mls/hr IV Q24H [facility] Last Admin: 07/03/21 22:59 Dose: 200 mls/hr Documented by: Ketamine HCl (Ketamine 500 Mg/10 Ml Mdv) Confirm Administered Dose 500 mg .ROUTE .STK-MED ONE Stop: 07/04/21 14:03 Metoprolol Succinate (Metoprolol Succinate 50 Mg Tab.Er) 100 mg PO BID [facility] Last Admin: 07/03/21 10:51 Dose: 100 mg Documented by: Midazolam HCl (Midazolam 1 Mg/Ml 2 Ml Sdv) Confirm Administered Dose 2 mg .ROUTE .STK-MED ONE Stop: 07/04/21 14:03 Midazolam HCl (Midazolam 1 Mg/Ml 2 Ml Sdv) Confirm Administered Dose 2 mg .ROUTE .STK-MED ONE Stop: 07/04/21 15:21 Multivitamins/Minerals (Multivitamins With Iron/Calcium/Folic Acid/Minerals Tab) 1 each PO DAILY [facility] Last Admin: 07/03/21 15:50 Dose: Not Given Documented by: Ondansetron HCl (Ondansetron 4 Mg/2 Ml Sdv) 4 mg IVPUSH ONETIME ONE Stop: 07/02/21 15:50 Last Admin: 07/02/21 16:04 Dose: 4 mg Documented by: Ondansetron HCl (Ondansetron 4 Mg/2 Ml Sdv) 4 mg IVPUSH ONETIME PRN PRN Reason: Nausea/Vomiting Stop: 07/04/21 18:30 Oxycodone HCl (Oxycodone 5 Mg Tab) 5 mg PO Q6H PRN PRN Reason: Pain (moderate 4-6) Oxycodone/Acetaminophen (Acetaminophen/Oxycodone 325-5 Mg Tab) 2 tab PO ONETIME ONE Stop: 07/02/21 17:06 Last Admin: 07/02/21 18:29 Dose: 2 tab Documented by: Potassium Chloride (Potassium Chloride 20 Meq Tab.Er) 20 meq PO DAILY [facility] Potassium Chloride (Potassium Chloride 20 Meq Tab.Er) 20 meq PO TID [facility] Stop: 07/03/21 15:01 Last Admin: 07/03/21 15:46 Dose: 20 meq Documented by: Prednisone (Prednisone 20 Mg Tab) 20 mg PO WITHBREAKFAST [facility] Last Admin: 07/02/21 23:25 Dose: Not Given Documented by: - Exam Quality Assessment: Denies: Supplemental Oxygen General: Reports: Alert, Oriented HEENT: Reports: Pupils Equal, Mucous Membr. Moist/Hydro Neck: Reports: Supple Lungs: Reports: Normal Respiratory Effort, Crackles Cardiovascular: Reports: Regular Rate, Regular Rhythm, Murmurs GI/Abdominal Exam: Normal Bowel Sounds, Soft, Non-Tender, No Distention Extremities: Other (Bilaterally wrapped lower extremities) Psy/Mental Status: Reports: Alert, Normal Affect, Normal Mood
[2021-07-05 15:19] VITALS: BP 103/73; PULSE 89
--- NOTE | 2021-07-05 17:54 | PCM48HPAN ---
Post Anesthesia Note - EVALUATION WITHIN 48HRS OF ANESTHETIC Vital Signs in Normal Range: Yes Patient Participated in Evaluation: Yes Respiratory Function Stable: Yes Airway Patent: Yes Cardiovascular Function Stable: Yes Hydration Status Stable: Yes Pain Control Satisfactory: Yes Nausea and Vomiting Control Satisfactory: Yes Mental Status Recovered: Yes Vital Signs: Last Vital Signs Temp 98.6 F 07/05/21 14:45 Pulse 89 07/05/21 14:45 Resp 20 07/05/21 14:45 BP 103/73 07/05/21 14:45 Pulse Ox 100 07/05/21 14:45 - COMMENTS/OBSERVATIONS Free Text/Narrative:: Denied issues with anesthesia
== END 2021-07-05 15:10 | disposition other institution (70) | DRG 570 ==
LOC: JD.ED 14:32 → JD.MS 18:05
PROVIDERS: ADMIT Internal Medicine; ATTEND Internal Medicine
PROC: 0JBP0ZZ Excision of Left Lower Leg Subcutaneous Tissue and Fascia, Open Approach (ICD-10-PCS; principal; 2021-07-04)
PROC: 0JBN0ZZ Excision of Right Lower Leg Subcutaneous Tissue and Fascia, Open Approach (ICD-10-PCS; 2021-07-04)
DX: L97.929 Non-pressure chronic ulcer of unspecified part of left lower leg with unspecified severity (principal); I50.33 Acute on chronic diastolic (congestive) heart failure; L03.116 Cellulitis of left lower limb; I48.20 Chronic atrial fibrillation, unspecified; I13.0 Hypertensive heart and chronic kidney disease with heart failure and stage 1 through stage 4 chronic kidney disease, or unspecified chronic kidney disease; F19.20 Other psychoactive substance dependence, uncomplicated; I96 Gangrene, not elsewhere classified; L97.919 Non-pressure chronic ulcer of unspecified part of right lower leg with unspecified severity; I77.1 Stricture of artery; L98.499 Non-pressure chronic ulcer of skin of other sites with unspecified severity; H54.7 Unspecified visual loss; G89.4 Chronic pain syndrome; J45.909 Unspecified asthma, uncomplicated; G47.30 Sleep apnea, unspecified; N18.32 Chronic kidney disease, stage 3b; I48.91 Unspecified atrial fibrillation; M06.9 Rheumatoid arthritis, unspecified; I87.8 Other specified disorders of veins; Z79.899 Other long term (current) drug therapy; Z20.822 Contact with and (suspected) exposure to COVID-19; G47.33 Obstructive sleep apnea (adult) (pediatric); R94.31 Abnormal electrocardiogram [ECG] [EKG]; N18.30 Chronic kidney disease, stage 3 unspecified; R77.8 Other specified abnormalities of plasma proteins; R26.2 Difficulty in walking, not elsewhere classified; E66.9 Obesity, unspecified; I89.0 Lymphedema, not elsewhere classified; Z96.649 Presence of unspecified artificial hip joint; Z85.46 Personal history of malignant neoplasm of prostate; Z79.01 Long term (current) use of anticoagulants; Z99.81 Dependence on supplemental oxygen; Z79.52 Long term (current) use of systemic steroids; Z95.0 Presence of cardiac pacemaker
CPT/HCPCS: 36415; 71045; 80053; 81001; 83605 ×2; 83735; 83880; 84484; 85007; 85027; 85610; 85652; 85730; 86140; 87040 ×2; 93005; 96374; 96375; 99285; J1170; J2405; 00400; 84100; 85025; 87070; 87075; 87077; 87186; 87205; 93925; 93925-26; 93970; 93970-26; 97162-GP; 97530-GP; 99100; A9270-GY; J0696; J1940; J2250; J3010; J3490; J7030; J7512; U0002

== ENCOUNTER 2021-07-22 09:43 | Emergency (ER) | payer MEDICARE, BC ==
[2021-07-22 09:59] VITALS: BP 90/69; PULSE 102
[2021-07-22] MEDS ORDERED: Sodium Chloride 0.9% 10 ML Syringe FLUSH PRN (10:11)
--- NOTE | 2021-07-22 10:37 | CR ---
Chest: Portable view of the chest was obtained. Comparison: Prior chest x-ray of 07/02/21. Prominent epicardial fat pad is seen within the right cardiophrenic space. There is also a density within the right lateral costophrenic angle most likely due to an additional fat pad. Heart is enlarged. Pacemaker is noted. Lungs show no acute parenchymal change. Bony structures show nothing acute. Impression: 1. Findings within the right base most likely chronic. 2. Cardiomegaly. Pacemaker. 3. Nothing acute is suspected on portable chest x-ray. Diagnostic code #2
[2021-07-22 11:10] LABS: CORONAVIRUS COVID-19 NAA NEGATIVE (NEGATIVE)
--- NOTE | 2021-07-22 11:14 | EDM.PDOC ---
ED HPI GENERAL MEDICAL PROBLEM - General Chief Complaint: General Stated Complaint: BRIAN AMB Time Seen by Provider: 07/22/21 09:51 Source of Information: Reports: Family () History Limitations: Reports: Altered Mental Status (Patient mostly slept through evaluation) - History of Present Illness INITIAL COMMENTS - FREE TEXT/NARRATIVE: Mr. Vergara is a very pleasant 81-year-old gentleman who is now brought to the ED by EMS for continued weakness and a decreased appetite. His tells me that he has a history of bilateral lower extremity venous stasis ulcers, and that he was admitted to this facility for 5 days, followed by [facility] for [facility] days, followed by [facility] for [facility] days, being discharged home this past , 07/18/2021. The patient's has been putting medical honey on his venous stasis ulcers, and she tells me that he is on 2 antibiotics. Since returning home, however, he has been eating and drinking very little, due to nausea. He has been generally weak since approximately March of this year. Here in the ED, the patient was initially found to be slightly tachycardic at 102 bpm, otherwise, he is hemodynamically stable, afebrile, saturating 98% on room air. He slept through most of my examination, waking only when I removed the dressings and examined his legs. He does not appear to be in acute distress. The patient's tells me that the patient is chronically dyspneic. She denies that he has had a recent fever, chills, cough, vomiting, or diarrhea. I reviewed the PMHx/PSHx/SocHx, which was reviewed with the patient by the RN. The patient's PCP is Adrienne Schrader NP. The patient has an appointment to see her this coming 07/24/2021. His Telephoto Installer is Dr. Danie Larios. He has an appointment to see him on 08/07/2021. His Latin Professor is Dr. Darrick Aragon. He has not received a COVID vaccination, nor an influenza vaccination this season. Bilateral Leg Pain Score (Numeric/FACES): 8 - Related Data Allergies Allergy/AdvReac Type Severity Reaction Status Date / Time No Known Allergies Allergy Verified 07/22/21 09:59 Home Meds: Home Meds Apixaban [Eliquis] 5 mg PO BID 06/28/21 [History] Hydrocodone/Acetaminophen [HYDROcodone-Acetaminophen 5-325 MG] 1 - 2 each PO Q6H PRN #15 tablet 06/28/21 [Rx] predniSONE [Prednisone] 20 mg PO DAILY 06/28/21 [History] Folic Acid 1 mg PO DAILY 07/02/21 [History] Multivitamin with Minerals [Multiple Vitamin] 1 tab PO DAILY 07/02/21 [History] Vit A/Vit C/Vit E/Zinc/Copper [Icaps Areds Formula] 1 tab PO DAILY 07/02/21 [History] Metoprolol Succinate 50 mg PO BEDTIME 07/03/21 [History] Metoprolol Succinate 100 mg PO QAM 07/03/21 [History] Bumetanide [Bumex] 3 mg PO DAILY 07/22/21 [History] Doxycycline [Vibramycin] 100 mg PO BID 07/22/21 [History] Ferrous Sulfate [Iron] 325 mg PO DAILY 07/22/21 [History] Midodrine 5 mg PO BID 07/22/21 [History] [place]-3 Fatty Acids [Maxepa] 1,000 mg PO DAILY 07/22/21 [History] Potassium Chloride 20 meq PO DAILY 07/22/21 [History] fentaNYL [Fentanyl] 1 patch TOP Q72H 07/22/21 [History] Past Medical History HEENT History: Reports: Cataract, Hard of Hearing, Impaired Vision, Macular Degeneration Cardiovascular History: Reports: Afib, Heart Failure, Hypertension, Pacemaker Respiratory History: Reports: Asthma, Sleep Apnea, SOB, Other (See Below) Other Respiratory History: wears CPAP at bedtime. He is not on home oxygen therapy although he is chronically dyspneic. 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 Gastrointestinal History: Reports: None Genitourinary History: Reports: Chronic Renal Insuffiency, Other (See Below) Other Genitourinary History: prostate cancer Musculoskeletal History: Reports: Gout, RA Endocrine/Metabolic History: Reports: Obesity/BMI 30+, Vitamin D Deficiency Hematologic History: Reports: Anemia, Anticoagulation Therapy, Folic Acid, Iron Deficiency Other Hematologic History: Eliquis Oncologic (Cancer) History: Reports: Leukemia, Prostate, Other (See Below) Other Oncologic History: LGL Dermatologic History: Reports: Cellulitis - Infectious Disease History Infectious Disease History: Reports: Influenza - Past Surgical History HEENT Surgical History: Reports: Cataract Surgery Cardiovascular Surgical History: Reports: Pacer Respiratory Surgical History: Reports: None GI Surgical History: Reports: Hernia, Abdominal, Hernia Repair/Other Male Surgical History: Reports: None Endocrine Surgical History: Reports: None Musculoskeletal Surgical History: Reports: Hip Replacement Oncologic Surgical History: Reports: None Dermatological Surgical History: Reports: Skin Biopsy Social & Family History - Tobacco Use Tobacco Use Status *Q: Never Tobacco User - Caffeine Use Caffeine Use: Reports: Coffee Other Caffeine Use: 1 cup per day - Living Situation & Occupation Living situation: Reports: , with Spouse (In their own home) Occupation: Retired ED ROS GENERAL - Review of Systems Review Of Systems: Comprehensive ROS is negative, except as noted in HPI. ED EXAM, GENERAL - Physical Exam Exam: See Below Exam Limited By: Altered Mental Status (Patient sleepy) General Appearance: WD/WN, No Apparent Distress Eye Exam: Bilateral Eye: EOMI, Normal Inspection Ears: Normal External Exam Nose: Normal Inspection Throat/Mouth: Normal Inspection, Normal Lips, No Airway Compromise Head: Atraumatic, Normocephalic Neck: Normal Inspection Respiratory/Chest: No Respiratory Distress, Lungs Clear, Normal Breath Sounds, No Accessory Muscle Use Cardiovascular: Normal Peripheral Pulses, Regular Rate, Rhythm, No Gallop, No JVD, No Murmur, No Rub Peripheral Pulses: 3+: Radial (L), Radial (R) GI/Abdominal: Normal Bowel Sounds, Soft, Non-Tender, No Organomegaly, No Distention, No Abnormal Bruit, No Mass Extremities: Normal Capillary Refill, Other (2+ pitting pretibial edema bilaterally. Anterior and posterior venous stasis ulcers to both legs. Legs somewhat erythematous, but no obvious infection. Both legs tender to manipulation/movement.) Neurological: Inattentive Skin Exam: Warm, Dry, Intact, Normal Color, No Rash #1 Interpretation EKG Date: 07/22/21 Time: 09:44 Rhythm: A-Fib (With ventricular pacing) Rate (Beats/Min): 111 Comparison: No Change (07/02/2021) Course - Vital Signs Last Recorded V/S: Last Vital Signs Temp 36.6 C 07/22/21 09:56 Pulse 102 H 07/22/21 09:56 Resp 20 07/22/21 09:56 BP 90/69 07/22/21 09:56 Pulse Ox 98 07/22/21 09:56 - Orders/Labs/Meds Orders: Active Orders 24 hr Category Date Time Status BLOOD CULTURE [MREF] Stat Lab 07/22/21 10:40 Received BLOOD CULTURE [MREF] Stat Lab 07/22/21 10:50 Received Blood Culture x2 Reflex Set [OM.PC] Stat Oth 07/22/21 10:12 Ordered Peripheral IV Insertion Adult [OM.PC] Stat Oth 07/22/21 10:12 Ordered Labs: Laboratory Tests 07/22/21 07/22/21 07/22/21 Range/Units 09:50 09:50 10:20 WBC 11.31 H (4.23-9.07) K/mm3 RBC 3.75 L (4.63-6.08) M/mm3 Hgb 11.2 L (13.7-17.5) gm/dl Hct 34.5 L (40.1-51.0) % MCV 92.0 D (79.0-92.2) fl MCH 29.9 (25.7-32.2) pg MCHC 32.5 (32.2-35.5) g/dl RDW Std Deviation 56.0 H (35.1-43.9) fL Plt Count 248 (163-337) K/mm3 MPV 10.2 (9.4-12.3) fl Neut % (Auto) 82.8 H (34.0-67.9) % Lymph % (Auto) 8.9 L (21.8-53.1) % [place] % (Auto) 6.3 (5.3-12.2) % Eos % (Auto) 0 L (0.8-7.0) Baso % (Auto) 0.1 (0.1-1.2) % Neut # (Auto) 9.37 H (1.78-5.38) K/mm3 Lymph # (Auto) 1.01 L (1.32-3.57) K/mm3 [place] # (Auto) 0.71 (0.30-0.82) K/mm3 Eos # (Auto) 0.00 L (0.04-0.54) K/mm3 Baso # (Auto) 0.01 (0.01-0.08) K/mm3 D-Dimer, Quantitative 1.10 H (0.19-0.50) mg/L Puncture Site ABG pH (7.35-7.45) ABG pCO2 (35.0-45.0) mmHg ABG pO2 (80.0-100.0) mmHg ABG HCO3 (22.0-26.0) meq/L ABG O2 Saturation (96.0-97.0) % ABG Base Excess (-2-2.0) A-a Gradient mmHg FiO2 (21.00-100.00) % Blood Gas Comments Sodium (136-145) mEq/L Potassium (3.5-5.1) mEq/L Chloride (98-107) mEq/L Carbon Dioxide (21-32) mEq/L Anion Gap (5-15) BUN (7-18) mg/dL Creatinine (0.7-1.3) mg/dL Est Cr Clr Drug Dosing Estimated GFR (MDRD) (>60) mL/min BUN/Creatinine Ratio (14-18) Glucose (70-99) mg/dL Lactic Acid (0.4-2.0) mmol/L Calcium (8.5-10.1) mg/dL Magnesium (1.8-2.4) mg/dL Total Bilirubin (0.2-1.0) mg/dL AST (15-37) U/L ALT (16-63) U/L Alkaline Phosphatase (46-116) U/L Troponin I (0.00-0.056) ng/mL C-Reactive Protein (<1.0) mg/dL NT-Pro-B Natriuret Pep (0-450) pg/mL Total Protein (6.4-8.2) g/dl Albumin (3.4-5.0) g/dl Globulin gm/dL Albumin/Globulin Ratio (1-2) TSH 3rd Generation (0.358-3.74) uIU/mL Urine Color (Yellow) Urine Appearance (Clear) Urine pH (5.0-8.0) Ur Specific [place] (1.005-1.030) Urine Protein (Negative) Urine Glucose (UA) (Negative) Urine Ketones (Negative) Urine Occult Blood (Negative) Urine Nitrite (Negative) Urine Bilirubin (Negative) Urine Urobilinogen (0.2-1.0) Ur Leukocyte Esterase (Negative) Urine RBC (0-5) /hpf Urine WBC (0-5) /hpf Ur Squamous Epith Cells (0-5) /hpf Urine Bacteria (FEW) /hpf Urine Mucus (FEW) /hpf Influenza Type A RNA Negative (NEGATIVE) Influenza Type B RNA Negative (NEGATIVE) SARS-CoV-2 RNA (CHASTITY) Negative (NEGATIVE) 07/22/21 07/22/21 07/22/21 Range/Units 10:40 10:40 10:40 WBC (4.23-9.07) K/mm3 RBC (4.63-6.08) M/mm3 Hgb (13.7-17.5) gm/dl Hct (40.1-51.0) % MCV (79.0-92.2) fl MCH (25.7-32.2) pg MCHC (32.2-35.5) g/dl RDW Std Deviation (35.1-43.9) fL Plt Count (163-337) K/mm3 MPV (9.4-12.3) fl Neut % (Auto) (34.0-67.9) % Lymph % (Auto) (21.8-53.1) % [place] % (Auto) (5.3-12.2) % Eos % (Auto) (0.8-7.0) Baso % (Auto) (0.1-1.2) % Neut # (Auto) (1.78-5.38) K/mm3 Lymph # (Auto) (1.32-3.57) K/mm3 [place] # (Auto) (0.30-0.82) K/mm3 Eos # (Auto) (0.04-0.54) K/mm3 Baso # (Auto) (0.01-0.08) K/mm3 D-Dimer, Quantitative (0.19-0.50) mg/L Puncture Site ABG pH (7.35-7.45) ABG pCO2 (35.0-45.0) mmHg ABG pO2 (80.0-100.0) mmHg ABG HCO3 (22.0-26.0) meq/L ABG O2 Saturation (96.0-97.0) % ABG Base Excess (-2-2.0) A-a Gradient mmHg FiO2 (21.00-100.00) % Blood Gas Comments Sodium 137 (136-145) mEq/L Potassium 3.6 (3.5-5.1) mEq/L Chloride 98 (98-107) mEq/L Carbon Dioxide 20 L (21-32) mEq/L Anion Gap 22.6 H (5-15) BUN 120 H D (7-18) mg/dL Creatinine 4.5 H D (0.7-1.3) mg/dL Est Cr Clr Drug Dosing TNP Estimated GFR (MDRD) 13 (>60) mL/min BUN/Creatinine Ratio 26.7 H (14-18) Glucose 121 H (70-99) mg/dL Lactic Acid (0.4-2.0) mmol/L Calcium 9.3 (8.5-10.1) mg/dL Magnesium 2.1 (1.8-2.4) mg/dL Total Bilirubin 1.4 H (0.2-1.0) mg/dL AST 25 (15-37) U/L ALT 9 L (16-63) U/L Alkaline Phosphatase 80 (46-116) U/L Troponin I 0.100 H* (0.00-0.056) ng/mL C-Reactive Protein 28.9 H* (<1.0) mg/dL NT-Pro-B Natriuret Pep 8253 H (0-450) pg/mL Total Protein 6.8 (6.4-8.2) g/dl Albumin 2.4 L (3.4-5.0) g/dl Globulin 4.4 gm/dL Albumin/Globulin Ratio 0.6 L (1-2) TSH 3rd Generation 1.209 (0.358-3.74) uIU/mL Urine Color (Yellow) Urine Appearance (Clear) Urine pH (5.0-8.0) Ur Specific [place] (1.005-1.030) Urine Protein (Negative) Urine Glucose (UA) (Negative) Urine Ketones (Negative) Urine Occult Blood (Negative) Urine Nitrite (Negative) Urine Bilirubin (Negative) Urine Urobilinogen (0.2-1.0) Ur Leukocyte Esterase (Negative) Urine RBC (0-5) /hpf Urine WBC (0-5) /hpf Ur Squamous Epith Cells (0-5) /hpf Urine Bacteria (FEW) /hpf Urine Mucus (FEW) /hpf Influenza Type A RNA (NEGATIVE) Influenza Type B RNA (NEGATIVE) SARS-CoV-2 RNA (CHASTITY) (NEGATIVE) 07/22/21 07/22/21 07/22/21 Range/Units 10:40 11:25 13:08 WBC (4.23-9.07) K/mm3 RBC (4.63-6.08) M/mm3 Hgb (13.7-17.5) gm/dl Hct (40.1-51.0) % MCV (79.0-92.2) fl MCH (25.7-32.2) pg MCHC (32.2-35.5) g/dl RDW Std Deviation (35.1-43.9) fL Plt Count (163-337) K/mm3 MPV (9.4-12.3) fl Neut % (Auto) (34.0-67.9) % Lymph % (Auto) (21.8-53.1) % [place] % (Auto) (5.3-12.2) % Eos % (Auto) (0.8-7.0) Baso % (Auto) (0.1-1.2) % Neut # (Auto) (1.78-5.38) K/mm3 Lymph # (Auto) (1.32-3.57) K/mm3 [place] # (Auto) (0.30-0.82) K/mm3 Eos # (Auto) (0.04-0.54) K/mm3 Baso # (Auto) (0.01-0.08) K/mm3 D-Dimer, Quantitative (0.19-0.50) mg/L Puncture Site Lt radial ABG pH 7.40 (7.35-7.45) ABG pCO2 38.8 (35.0-45.0) mmHg ABG pO2 41.0 L (80.0-100.0) mmHg ABG HCO3 23.4 (22.0-26.0) meq/L ABG O2 Saturation 54.9 L (96.0-97.0) % ABG Base Excess -0.8 (-2-2.0) A-a Gradient 60 mmHg FiO2 21.00 (21.00-100.00) % Blood Gas Comments Venous Sodium (136-145) mEq/L Potassium (3.5-5.1) mEq/L Chloride (98-107) mEq/L Carbon Dioxide (21-32) mEq/L Anion Gap (5-15) BUN (7-18) mg/dL Creatinine (0.7-1.3) mg/dL Est Cr Clr Drug Dosing Estimated GFR (MDRD) (>60) mL/min BUN/Creatinine Ratio (14-18) Glucose (70-99) mg/dL Lactic Acid 3.1 H* 2.6 H* (0.4-2.0) mmol/L Calcium (8.5-10.1) mg/dL Magnesium (1.8-2.4) mg/dL Total Bilirubin (0.2-1.0) mg/dL AST (15-37) U/L ALT (16-63) U/L Alkaline Phosphatase (46-116) U/L Troponin I (0.00-0.056) ng/mL C-Reactive Protein (<1.0) mg/dL NT-Pro-B Natriuret Pep (0-450) pg/mL Total Protein (6.4-8.2) g/dl Albumin (3.4-5.0) g/dl Globulin gm/dL Albumin/Globulin Ratio (1-2) TSH 3rd Generation (0.358-3.74) uIU/mL Urine Color (Yellow) Urine Appearance (Clear) Urine pH (5.0-8.0) Ur Specific [place] (1.005-1.030) Urine Protein (Negative) Urine Glucose (UA) (Negative) Urine Ketones (Negative) Urine Occult Blood (Negative) Urine Nitrite (Negative) Urine Bilirubin (Negative) Urine Urobilinogen (0.2-1.0) Ur Leukocyte Esterase (Negative) Urine RBC (0-5) /hpf Urine WBC (0-5) /hpf Ur Squamous Epith Cells (0-5) /hpf Urine Bacteria (FEW) /hpf Urine Mucus (FEW) /hpf Influenza Type A RNA (NEGATIVE) Influenza Type B RNA (NEGATIVE) SARS-CoV-2 RNA (CHASTITY) (NEGATIVE) 07/22/21 Range/Units 15:35 WBC (4.23-9.07) K/mm3 RBC (4.63-6.08) M/mm3 Hgb (13.7-17.5) gm/dl Hct (40.1-51.0) % MCV (79.0-92.2) fl MCH (25.7-32.2) pg MCHC (32.2-35.5) g/dl RDW Std Deviation (35.1-43.9) fL Plt Count (163-337) K/mm3 MPV (9.4-12.3) fl Neut % (Auto) (34.0-67.9) % Lymph % (Auto) (21.8-53.1) % [place] % (Auto) (5.3-12.2) % Eos % (Auto) (0.8-7.0) Baso % (Auto) (0.1-1.2) % Neut # (Auto) (1.78-5.38) K/mm3 Lymph # (Auto) (1.32-3.57) K/mm3 [place] # (Auto) (0.30-0.82) K/mm3 Eos # (Auto) (0.04-0.54) K/mm3 Baso # (Auto) (0.01-0.08) K/mm3 D-Dimer, Quantitative (0.19-0.50) mg/L Puncture Site ABG pH (7.35-7.45) ABG pCO2 (35.0-45.0) mmHg ABG pO2 (80.0-100.0) mmHg ABG HCO3 (22.0-26.0) meq/L ABG O2 Saturation (96.0-97.0) % ABG Base Excess (-2-2.0) A-a Gradient mmHg FiO2 (21.00-100.00) % Blood Gas Comments Sodium (136-145) mEq/L Potassium (3.5-5.1) mEq/L Chloride (98-107) mEq/L Carbon Dioxide (21-32) mEq/L Anion Gap (5-15) BUN (7-18) mg/dL Creatinine (0.7-1.3) mg/dL Est Cr Clr Drug Dosing Estimated GFR (MDRD) (>60) mL/min BUN/Creatinine Ratio (14-18) Glucose (70-99) mg/dL Lactic Acid (0.4-2.0) mmol/L Calcium (8.5-10.1) mg/dL Magnesium (1.8-2.4) mg/dL Total Bilirubin (0.2-1.0) mg/dL AST (15-37) U/L ALT (16-63) U/L Alkaline Phosphatase (46-116) U/L Troponin I (0.00-0.056) ng/mL C-Reactive Protein (<1.0) mg/dL NT-Pro-B Natriuret Pep (0-450) pg/mL Total Protein (6.4-8.2) g/dl Albumin (3.4-5.0) g/dl Globulin gm/dL Albumin/Globulin Ratio (1-2) TSH 3rd Generation (0.358-3.74) uIU/mL Urine Color Yellow (Yellow) Urine Appearance Clear (Clear) Urine pH 5.0 (5.0-8.0) Ur Specific [place] 1.015 (1.005-1.030) Urine Protein Negative (Negative) Urine Glucose (UA) Negative (Negative) Urine Ketones Negative (Negative) Urine Occult Blood Negative (Negative) Urine Nitrite Negative (Negative) Urine Bilirubin Negative (Negative) Urine Urobilinogen 0.2 (0.2-1.0) Ur Leukocyte Esterase Negative (Negative) Urine RBC 0-5 (0-5) /hpf Urine WBC 0-5 (0-5) /hpf Ur Squamous Epith Cells 0-5 (0-5) /hpf Urine Bacteria Few (FEW) /hpf Urine Mucus Few (FEW) /hpf Influenza Type A RNA (NEGATIVE) Influenza Type B RNA (NEGATIVE) SARS-CoV-2 RNA (CHASTITY) (NEGATIVE) Meds: Medications Discontinued Medications Generic Name Dose Route Start Last Admin Trade Name Freq PRN Reason Stop Dose Admin Hydrocodone Bitart/Acetaminophen 2 tab 07/22/21 12:55 07/22/21 13:14 Acetaminophen/Hydrocodone 325-5 Mg Tab PO 07/22/21 12:56 2 tab ONETIME ONE Administration Sodium Chloride 1,000 mls @ 999 mls/hr 07/22/21 12:17 07/22/21 12:50 Normal Saline IV 07/22/21 13:17 999 mls/hr ONETIME ONE Administration Sodium Chloride 1,000 mls @ 999 mls/hr 07/22/21 15:52 07/22/21 16:04 Normal Saline IV 07/22/21 16:52 999 mls/hr ONETIME ONE Administration Sodium Chloride 10 ml 07/22/21 10:11 07/22/21 10:15 Sodium Chloride 0.9% 10 Ml Syringe FLUSH 10 ml ASDIRECTED PRN Administration Keep Vein Open - Re-Assessments/Exams Free Text/Narrative Re-Assessment/Exam: 07/22/21 11:08 Numerous blood tests, 2 sets of blood cultures, an ABG, a urinalysis, a swab for the SARS-CoV-2 virus and influenza A + B viruses, a portable chest x-ray, and an ECG were ordered at triage. 07/22/21 11:20 Portable chest x-ray is read by Dr. Lawson as: 1. Findings within the right base most likely chronic. 2. Cardiomegaly. Pacemaker. 3. Nothing acute is suspected on portable chest x-ray. 07/22/21 12:17 The patient's CBC is remarkable for mild leukocytosis of 11.31, and an H/H slightly depressed at 11.2/34.5, with the remainder of his CBC being unremarkable. His CMP is remarkable for a bicarbonate slightly depressed at 20, with an anion gap slightly elevated 22.6, and a BUN/Cr substantially elevated at 120/4.5, mild hyperglycemia of 121, and a TBil slightly elevated at 1.4, with the remainder of his CMP being unremarkable. His magnesium level is within normal limits at 2.1. His lactic acid level is elevated at 3.1. His TSH is within normal limits at 1.209. His troponin is mildly elevated at 0.100. His pro-BNP is modestly elevated at 8253. His D-dimer is elevated at 1.10. His ABG demonstrates a primary respiratory alkalosis with appropriately compensated metabolic acidosis. His PO2 is 41, with an SaO2 of 54.9%, indicating that this is a venous sample. His swab for the SARS-CoV-2 virus and influenza A + B viruses is negative. The patient has not yet provided a urine sample for a urinalysis. Based on the above, I have ordered a 1 L bolus of IV fluid. 07/22/21 17:19 A repeat lactic acid level is down to 2.6. The patient's urinalysis is unremarkable. 07/22/21 17:22 Test results discussed with the patient and his . As above, the patient has significant renal impairment. I explained that I cannot say exactly why he has renal impairment, but that treatment at this time includes generous hydration. We do not have any beds available at this facility, but the patient's stated that their daughter is coming from [place], and that they would like to try to take care of the patient at home. If they are unable, they will return him to the ED, but they are aware that that would mean looking for fpc placement. The patient's would like to try to avoid placing her into a fpc. The patient has an appointment to follow-up with Adrienne Schrader NP, this coming 07/24/2021, and Dr. Larios on 08/07/2021. I recommended that Ms. Schrader check a chemistry panel when she sees him on Thursday. Departure - Departure Time of Disposition: 17:23 Disposition: Home, Self-Care 01 Condition: Good Clinical Impression: Acute on chronic renal failure, Lactic acidosis, Venous stasis ulcers - Discharge Information *PRESCRIPTION DRUG MONITORING PROGRAM REVIEWED*: Not Applicable *COPY OF PRESCRIPTION DRUG MONITORING REPORT IN PATIENT JOSEFA: Not Applicable Instructions: Acute Kidney Injury, Adult Referrals: Adrienne Schrader NP [Primary Care Provider] - Danie Larios MD [Ordering Only Provider] - Darrick Aragon MD [Ordering Only Provider] - Forms: ED Department Discharge Additional Instructions: Mr. Vergara was seen in the emergency room for persistent generalized weakness and decreased appetite. Work-up in the ER included numerous blood tests, 2 sets of blood cultures, an arterial blood gas, a urinalysis, a swab for the SARS-CoV-2 virus and influenza A + B viruses, a chest x-ray, and an ECG. His work-up found his kidney function to be significantly impaired, with a creatinine of 4.5, up from 2.2 on 07/05/2021. His lactic acid level was somewhat increased at 3.1, but down to 2.6 after some IV fluid. He had other lab abnormalities most likely due to his kidney impairment. He was treated with IV fluid in the ER. You have elected to take him home. Is important that he stay adequately hydrated. We recommend that Adrienne Schrader NP, check a chemistry panel when he sees her this 07/24/2021. If any other problems, please do not hesitate to return Mr. Vergara to the ER. Sepsis Event Note (ED) - Evaluation Sepsis Screening Result: No Definite Risk - Focused Exam Vital Signs: Vital Signs Temp Pulse Resp BP Pulse Ox 07/22/21 09:56 36.6 C 102 H 20 90/69 98 - My Orders Last 24 Hours: My Active Orders 07/22/21 10:12 Blood Culture x2 Reflex Set [OM.PC] Stat Peripheral IV Insertion Adult [OM.PC] Stat 07/22/21 10:40 BLOOD CULTURE [MREF] Stat 07/22/21 10:50 BLOOD CULTURE [MREF] Stat - Assessment/Plan Last 24 Hours: My Active Orders 07/22/21 10:12 Blood Culture x2 Reflex Set [OM.PC] Stat Peripheral IV Insertion Adult [OM.PC] Stat 07/22/21 10:40 BLOOD CULTURE [MREF] Stat 07/22/21 10:50 BLOOD CULTURE [MREF] Stat
[2021-07-22] MEDS ORDERED: Sodium Chloride 0.9% 1,000 ML IV ONE ×2 (12:17→15:52)
[2021-07-22] MEDS ORDERED: Acetaminophen/HYDROcodone 325-5 MG Tab PO ONE (12:55)
== END 2021-07-22 17:44 | disposition home or self-care (01) ==
LOC: JD.ED 09:43
DX: I83.018 Varicose veins of right lower extremity with ulcer other part of lower leg (principal); I83.028 Varicose veins of left lower extremity with ulcer other part of lower leg; N17.9 Acute kidney failure, unspecified; E87.2 Acidosis; I13.0 Hypertensive heart and chronic kidney disease with heart failure and stage 1 through stage 4 chronic kidney disease, or unspecified chronic kidney disease; N18.9 Chronic kidney disease, unspecified; I50.9 Heart failure, unspecified; I48.91 Unspecified atrial fibrillation; E66.9 Obesity, unspecified; Z95.0 Presence of cardiac pacemaker; Z79.01 Long term (current) use of anticoagulants; Z79.899 Other long term (current) drug therapy; Z68.30 Body mass index [BMI] 30.0-30.9, adult; Z20.822 Contact with and (suspected) exposure to COVID-19
CPT/HCPCS: 0240U; 36415; 36600; 71045; 80053; 81001; 82803; 83605; 83735; 83880; 84443; 84484; 85025; 85379; 86140; 87040; 93005; 99285; A9270; J7030